=== PATIENT | female | born 1950 | race Caucasian/White ===

== ENCOUNTER 2020-01-10 13:19 | Outpatient (CLI) | payer MEDICARE, SELFPAY ==
--- NOTE | ~2020-01-10 | XR_ITS ---
EXAMINATION: XR hip RT min 2V DATE: 01/10/2020 15:01 INDICATION: Low back and right hip pain TECHNIQUE: Anteroposterior, frog leg, and cross-table lateral views of the right hip were obtained. COMPARISON: None. FINDINGS: Bone alignment is normal. There is no fracture. The soft tissues are unremarkable. IMPRESSION: 1. No acute osseous abnormality. Reviewed, dictated and finalized at location A.
--- NOTE | ~2020-01-10 | DEXA_ITS ---
Bone Density Report Name: Lady King Age: 69 Sex: Female Ethnicity: White Date of : 1950 Indication: postmenopausal; height loss; hysterectomy; Referring Provider: KORIN, HIRA Lindsay Study: Bone densitometry was performed. Exam Date: January 10, 2020 Accession number: [id number] Bone Density: Region BMD T-score Z-score Classification AP Spine (L1-L4) 0.938 -1.0 1.2 Normal Femoral Neck (Left) 0.658 -1.7 0.2 Osteopenia Total Hip (Left) 0.852 -0.7 0.8 Normal Total Hip Bilateral Avg 0.813 -1.0 0.5 Osteopenia Femoral Neck (Right) 0.659 -1.7 0.2 Osteopenia Total Hip (Right) 0.772 -1.4 0.2 Osteopenia World Health Organization criteria for BMD impression classify patients as: Normal (T-score at or above -1.0), Osteopenia (T-score between -1.0 and -2.5), or Osteoporosis (T-score at or below -2.5). 10-year Fracture Risk(1): Major Osteoporotic Fracture 9.9% Hip Fracture 1.7% Reported Risk Factors: [place] (), Neck BMD=0.659, BMI=37.8 (1) FRAX(R) Version 3.08. Fracture probability calculated for an untreated patient. Fracture probability may be lower if the patient has received treatment. Previous Exams: Region Exam Age BMD T-score BMD Change BMD Change Date g/cm2 vs Baseline vs Previous AP Spine(L1-L4) 01/10/2020 69 0.938 -1.0 -0.067(-6.7%)# -0.103(-9.9%)# 07/27/2007 57 1.041 -0.1 0.036(3.6%)* 0.036(3.6%)* 01/13/2003 52 1.005 -0.4 Total Hip(Left) 01/10/2020 69 0.852 -0.7 -0.107(-11.1%) -0.140(-14.1%) 07/27/2007 57 0.992 0.4 0.034(3.5%)* 0.034(3.5%)* 01/13/2003 52 0.959 0.1 Total Hip(Right) 01/10/2020 69 0.772 -1.4 -0.101(-11.5%) -0.129(-14.3%) 07/27/2007 57 0.901 -0.3 0.029(3.3%)* 0.029(3.3%)* 01/13/2003 52 0.873 -0.6 *Denotes significance at 95% confidence level, LSC for AP Spine = 0.022 g/cm2, LSC for Total Hip = 0.027 g/cm2 Clinical Information Provided by Patient: Has the following medical conditions: Hysterectomy Patient maximum height was 65.5 Menopause Age: 30 No regular weight bearing exercise Drinks caffeinated beverages Onset of menses at age 11 Number of children 2 Impression: The patient has low bone mass, based on the Left Femoral Neck T-score. The patient has an estimated ten-year risk of hip fracture of 1.7% and an estimated ten-year risk of major fracture of 9.9%, based on the WHO FRAX algorithm. No significant bone loss was observed. Hilton
--- NOTE | ~2020-01-10 | XR_ITS ---
EXAMINATION: XR lumbar spine 2-3V DATE: 01/10/2020 15:01 INDICATION: Low back pain TECHNIQUE: Anteroposterior and lateral views of the lumbar spine, and cone-down lateral view of the l umbosacral junction were obtained. COMPARISON: 05/30/2014 FINDINGS: Bone alignment is normal. There is no fracture. There is chronic severe loss of interverteb ral disc space height at L4-5 and L5-S1. Mild loss of intervertebral disc space height is present at L3-4. The vertebral body heights are normal. There is severe facet osteoarthritis of the lower lumbar spine. The bowel gas pattern is normal. Small degenerative osteophytes project from the anterior end plates of multiple vertebral bodies. IMPRESSION: 1. Severe lumbar spondylosis without acute findings or significant interval change. Reviewed, dictated and finalized at location A. IMPRESSION: 1. Severe lumbar spondylosis without acute findings or significant interval carola nge.
== END 2020-01-10 13:20 | disposition home or self-care (01) ==
PROVIDERS: PCP Internal Medicine; Visit Provider Internal Medicine
DX: Z13.820 Encounter for screening for osteoporosis (principal); Z78.0 Asymptomatic menopausal state; M47.896 Other spondylosis, lumbar region; M85.852 Other specified disorders of bone density and structure, left thigh; M85.851 Other specified disorders of bone density and structure, right thigh
CPT/HCPCS: 72100; 73502; 77080

== ENCOUNTER 2020-03-08 11:05 | Outpatient (CLI) | payer MEDICARE, SELFPAY ==
--- NOTE | ~2020-03-08 | XR_ITS ---
XR hip LT min 2V 03/08/2020 11:31 Indication: Low back and hip pain Procedure: 2 views left hip Comparison: No prior studies for comparison. Findings: No fracture, subluxation or dislocation. Sclerotic lesion noted in the intertrochanteric re gion, likely benign enchondroma. No significant joint space narrowing. No soft tissue abnormalities. Impression: 1: No significant bone or joint abnormality. Reviewed, dictated and finalized at location A. Impression: 1: No significant bone or joint abnormality.
--- NOTE | ~2020-03-08 | XR_ITS ---
XR lumbar spine 2-3V 03/08/2020 11:30 Indication: Low back pain. Procedure: 3 views lumbar spine Comparison: 01/10/2020 Findings: There is disc narrowing at all lumbar levels with vacuum phenomena at L3-4, L4-5 and L5-S1. There is mild levoscoliosis. No fracture or traumatic malalignment. No evidence for spondylolisthesi s. No significant change. There are cholecystectomy clips. Impression: 1: Stable moderate-severe lumbar spondylosis. Reviewed, dictated and finalized at location A. Impression: 1: Stable moderate-severe lumbar spondylosis.
== END 2020-03-08 11:06 | disposition home or self-care (01) ==
PROVIDERS: PCP Internal Medicine; Visit Provider Internal Medicine
DX: M47.896 Other spondylosis, lumbar region (principal)
CPT/HCPCS: 72100; 73502

== ENCOUNTER 2020-06-24 09:28 | Outpatient (CLI) | payer MEDICARE, SELFPAY ==
--- NOTE | ~2020-06-24 | US_ITS ---
EXAMINATION: US venous doppler [facility] DATE: 06/24/2020 10:22 INDICATION: Varicose veins TECHNIQUE: Grayscale ultrasound images without and with compression and Doppler ultrasound images of the bilateral lower extremity veins were obtained. COMPARISON: None. FINDINGS: The visualized portions of right common femoral vein, profunda (deep) femoral vein, femoral vein, pop liteal vein, posterior tibial veins, peroneal veins, gastrocnemius vein and greater saphenous vein ou tflow are patent. Right StandingSupine] Venous Mapping: reflux seconds duration; vein size. Greater saphenous origin: 0 seconds; 6.5 mm. Greater saphenous mid thigh:------ 0 seconds; 4.2-3.3 mm. Greater saphenous below knee:--- 0 seconds; 3.0-2.1 mm. Lesser saphenous proximally:------ 0 seconds; 1.7 mm. Lesser saphenous distally: 0 seconds; 1.8 mm. The visualized portions of left common femoral vein, profunda femoral vein, femoral vein, popliteal v ein, posterior tibial veins, peroneal veins, gastrocnemius vein and greater saphenous vein outflow ar e patent. Left StandingSupine] Venous Mapping: reflux seconds duration; vein size. Greater saphenous origin: 0 seconds; 9.9 mm. Greater saphenous mid thigh:------ 0 seconds; 4.7-3.2 mm. Greater saphenous below knee:--- 0 seconds; 2.3 mm. Lesser saphenous proximally:------ 0 seconds; 4.0-2.9 mm. Lesser saphenous distally: 0 seconds; 2.0-1.8 mm. IMPRESSION: 1. No deep venous thrombosis or venous reflux in either lower limb. Reviewed, dictated and finalized at location B.
== END 2020-06-24 09:29 | disposition home or self-care (01) ==
PROVIDERS: PCP Internal Medicine; Visit Provider Internal Medicine Cardiovascular Disease
DX: I83.90 Asymptomatic varicose veins of unspecified lower extremity (principal); R60.0 Localized edema
CPT/HCPCS: 93970

== ENCOUNTER 2020-07-08 14:01 | Outpatient (CLI) | payer MEDICARE, SELFPAY ==
--- NOTE | ~2020-07-08 | MR_ITS ---
EXAMINATION: MR lumbar spine wo con DATE: 07/08/2020 14:46 INDICATION: Lumbar radiculopathy. TECHNIQUE: Magnetic resonance imaging (MRI) of the lumbar spine was performed without intravenous con trast. Sequences included sagittal T2-weighted FSE, sagittal T2-weighted FS FSE, sagittal T1-weighted FSE, and axial T2-weighted FSE. COMPARISON: Lumbar spine radiographs 03/08/2020 FINDINGS: There is 16 degrees levoscoliosis of lumbar spine. There are Schmorl's nodes at most levels . There is severely decreased disc height at L1-L2, mildly decreased disc height at L2-L3, and severe ly decreased disc height from L3-L4 through L5-S1. The distal spinal cord signal intensity is normal. The conus medullaris is at L1. The following disc levels are specifically discussed: L1-L2: The disc is bulging and has an annular fissure. There is moderate bilateral facet joint osteoa rthritis. There is mild bilateral neural foraminal stenosis. There is mild central canal stenosis. L2-L3: The disc is bulging and has an annular fissure. There is mild bilateral facet joint osteoarthr itis. There is mild bilateral neural foraminal stenosis. There is mild central canal stenosis. L3-L4: The disc is bulging and has an annular fissure. There is moderate bilateral facet joint osteoa rthritis. There is mild bilateral neural foraminal stenosis. There is mild central canal stenosis. L4-L5: The disc is bulging as an annular fissure. There is severe bilateral facet joint osteoarthriti s. There is mild bilateral neural foraminal stenosis. There is mild central canal stenosis. L5-S1: The disc is bulging and has an annular fissure. There is moderate left facet joint osteoarthri tis. There is mild bilateral neural foraminal stenosis. There is mild central canal stenosis. IMPRESSION: 1. Severe lumbar spondylosis. 2. Lumbar levoscoliosis. Reviewed, dictated and finalized at location B. ERSITY TUTOR
== END 2020-07-08 14:02 | disposition home or self-care (01) ==
PROVIDERS: PCP Internal Medicine; Visit Provider Internal Medicine
DX: M47.26 Other spondylosis with radiculopathy, lumbar region (principal)
CPT/HCPCS: 72148

== ENCOUNTER 2020-09-05 04:45 | Outpatient (CLI) | payer MEDICARE, SELFPAY ==
[2020-09-05 19:32] LABS: SARS-CoV-2 RNA PCR Negative
== END 2020-09-05 04:46 | disposition home or self-care (01) ==
LOC: ANHCOVIDDT 04:45
PROVIDERS: PCP Internal Medicine; Visit Provider Internal Medicine Gastroenterology
DX: Z01.812 Encounter for preprocedural laboratory examination (principal); Z20.822 Contact with and (suspected) exposure to COVID-19
CPT/HCPCS: C9803; U0003

== ENCOUNTER 2020-09-09 02:46 | Day surgery (SDC) | payer MEDICARE, SELFPAY ==
[2020-09-02 10:01] VITALS: BMI 37.0
--- NOTE | 2020-09-02 10:16 | PC.NURSE ---
Doing PAT interview on 09-02-20 at 1015- patient informed me of being on Pradaxa for chronic Afib. Spoke with Dr Candelario- states to hold for 2 days prior to procedure day. Instructions given to patient.
[2020-09-09 08:32] VITALS: BP 124/76; PULSE 60; RESP 18; TEMP 36.1; O2SAT 99; BMI 36.0
[2020-09-09] MEDS: LACTATED RINGERS 1,000 ML 150 ML IV CONT (08:47)
--- NOTE | 2020-09-09 09:37 | WPDANESEPPF ---
Anes - Initial Pre Proc Eval Procedure: Operation Date: 09/09/20 09:30 Proposed Procedures p Screening Colonoscopy - Gerber Jacinto MD Date/Time: 09/09/20 09:37 Surgeon: Gerber Jacinto MD Pre Op Diagnosis: Neoplasm Screening Patient Data Age: 70 Gender: F Height: 5 ft 4 in Weight: 95.2 kg Last Vital Signs Temp 97 F L 09/09/20 08:32 Pulse 60 09/09/20 08:32 Resp 18 09/09/20 08:32 BP 124/76 09/09/20 08:32 Pulse Ox 99 09/09/20 08:32 Allergies Allergy/AdvReac Type Severity Reaction Status Date / Time No Known Allergies Allergy Verified 09/09/20 08:25 Home Medications Medication Instructions Recorded Confirmed Type dabigatran etexilate [Pradaxa] 150 mg PO BID 08/23/19 09/02/20 History ferrous sulfate 325 mg PO BID 08/23/19 09/02/20 History lansoprazole 30 mg PO DAILY 08/23/19 09/02/20 History levothyroxine 75 mcg PO DAILY 08/23/19 09/02/20 History pravastatin 10 mg PO DAILY 08/23/19 09/02/20 History sotalol 40 mg PO BID 08/23/19 09/02/20 History albuterol sulfate 90 mcg/actuation 2 puff INHALATION Q4-6H PRN #8.5 gm 09/25/19 09/02/20 Rx aerosol inhaler cholecalciferol (vitamin D3) 25 1,000 unit PO DAILY 09/25/19 09/02/20 History mcg (1,000 unit) capsule cyanocobalamin (vitamin B-12) 500 500 mcg PO DAILY 09/25/19 09/02/20 History mcg tablet multivitamin 1 tablet PO DAILY 09/25/19 09/02/20 History budesonide 180 mcg/actuation 2 inh INHALATION QAM #3 ea 08/12/20 09/02/20 Rx breath activated powder inhaler Patient hx anesthesia problems: none Family hx anesthesia problems: none PMFSH Past Medical History Medical History (Reviewed 08/12/20 @ 11:05 by Ann Marie Rousseau, [facility]) Afib Anemia Arthritis Diastolic congestive heart failure Diverticulitis GERD (gastroesophageal reflux disease) Heart murmur History of cardioversion Hypotension Hypothyroid Leaky heart valve Pulmonary HTN Seasonal allergies Second hand smoke exposure UTI (urinary tract infection) Surgical History Surgical History H/O bilateral cataract extraction H/O breast biopsy H/O resection of small bowel H/O: hysterectomy History of appendectomy History of cardiac cath History of cholecystectomy Hx of gastric bypass Hx of tonsillectomy Family History Family History (Reviewed 08/12/20 @ 11:05 by Ann Marie Rousseau, [facility]) Mother Family history of muscular dystrophy, Onset Age: 45 Family history of cardiovascular disease, Onset Age: 45 Family history of lung disease, Onset Age: 45 Father Acute myocardial infarction, Onset Age: 47 Sibling Family history of renal failure Other Family history of autism Social History Social History Smoking status: Never smoker Second hand tobacco smoke exposure: Yes Alcohol intake: never Substance use: never Substance use type: does not use Living arrangements: with family Spiritual care concerns: No Anes - Eval Final PreProcedure Day of Procedure 09/09/20 09:37 Patient weight: obese Heart: irregular rhythm Lungs: clear to auscultation Airway: Mallampati scale class II Neurological: alert and oriented Last oral intake: >/= 8 hours ASA classification: III Emergent: no Anesthetic plan: proceed Anesthesia type and monitoring: general GIVS and standard monitoring Informed Consent: The patient's anesthetic plan and its attendant risks and benefits were discussed with the patient/family/POA. Questions were solicited and answers provided to the satisfaction of the patient/family/POA.
--- NOTE | 2020-09-09 09:44 | PM.HPGS ---
History of Present Illness History of Present Illness Consent: Risks, benefits, and alternatives have been discussed and questions answered. Patient agrees to proceed with procedure. Chief complaint: Neoplasm Screening Narrative: Lady King is a 70 year old female with last colonoscopy 3 years ago but recently had + stool card Review of Systems Constitutional: Constitutional: Denies headache(s) and Denies weakness Eyes: Eyes: Denies blurry vision ENT: Reports Normal hearing present, Denies headache(s) and Denies neck pain Cardiovascular: Cardiovascular: Denies chest pain and Denies dyspnea Respiratory: Respiratory: Denies dyspnea Gastrointestinal: Gastrointestinal: Reports no additional gastrointestinal complaints Genitourinary: Genitourinary: Denies dysuria Musculoskeletal: Musculoskeletal: Denies neck pain Integumentary/Breasts: Skin/Breast: Denies dry skin Neurologic: Reports Normal hearing present, Denies headache(s) and Denies weakness Psychiatric: Psychiatric: Denies anxiety Endocrine: Endocrine: Denies change in body appearance Hematologic/Lymphatic: Hematologic/Lymphatic: Denies easy bleeding Allergic/Immunologic: Allergic/Immunologic: Denies urticaria PMFSH Past Medical History Medical History Afib Anemia Arthritis Diastolic congestive heart failure Diverticulitis GERD (gastroesophageal reflux disease) Heart murmur History of cardioversion Hypotension Hypothyroid Leaky heart valve Pulmonary HTN Seasonal allergies Second hand smoke exposure UTI (urinary tract infection) Surgical History Surgical History H/O bilateral cataract extraction H/O breast biopsy H/O resection of small bowel H/O: hysterectomy History of appendectomy History of cardiac cath History of cholecystectomy Hx of gastric bypass Hx of tonsillectomy Family History Family History Mother Family history of muscular dystrophy, Onset Age: 45 Family history of cardiovascular disease, Onset Age: 45 Family history of lung disease, Onset Age: 45 Father Acute myocardial infarction, Onset Age: 47 Sibling Family history of renal failure Other Family history of autism Social History Social History Smoking status: Never smoker Second hand tobacco smoke exposure: Yes Alcohol intake: never Substance use: never Substance use type: does not use Living arrangements: with family Spiritual care concerns: No Meds Home Medications and Allergies Home Medications Medication Instructions Recorded Confirmed Type dabigatran etexilate [Pradaxa] 150 mg PO BID 08/23/19 09/02/20 History ferrous sulfate 325 mg PO BID 08/23/19 09/02/20 History lansoprazole 30 mg PO DAILY 08/23/19 09/02/20 History levothyroxine 75 mcg PO DAILY 08/23/19 09/02/20 History pravastatin 10 mg PO DAILY 08/23/19 09/02/20 History sotalol 40 mg PO BID 08/23/19 09/02/20 History albuterol sulfate 90 mcg/actuation 2 puff INHALATION Q4-6H PRN #8.5 gm 09/25/19 09/02/20 Rx aerosol inhaler cholecalciferol (vitamin D3) 25 1,000 unit PO DAILY 09/25/19 09/02/20 History mcg (1,000 unit) capsule cyanocobalamin (vitamin B-12) 500 500 mcg PO DAILY 09/25/19 09/02/20 History mcg tablet multivitamin 1 tablet PO DAILY 09/25/19 09/02/20 History budesonide 180 mcg/actuation 2 inh INHALATION QAM #3 ea 08/12/20 09/02/20 Rx breath activated powder inhaler Allergies Allergy/AdvReac Type Severity Reaction Status Date / Time No Known Allergies Allergy Verified 09/09/20 08:25 Vital Signs Vital Signs - 24 hr 09/09/20 08:32 Temperature 97 F L Pulse Rate 60 Respiratory Rate 18 Blood Pressure 124/76 Pulse Oximetry 99 Exam Const: General: comfortable and no acute distress [facility]
[2020-09-09 10:07] VITALS: BP 99/48; PULSE 56; RESP 23; O2SAT 100
[2020-09-09 10:17] VITALS: BP 101/55; PULSE 53; RESP 17; O2SAT 100
[2020-09-09 10:27] VITALS: BP 104/66; PULSE 48; RESP 18; O2SAT 100
== END 2020-09-09 10:33 | disposition home or self-care (01) ==
PROVIDERS: PCP Internal Medicine; Visit Provider Internal Medicine Gastroenterology
PROC: 0DJD8ZZ Inspection of Lower Intestinal Tract, Via Natural or Artificial Opening Endoscopic (ICD-10-PCS; CPT 45378; principal; 2020-09-09 09:30)
DX: Z12.11 Encounter for screening for malignant neoplasm of colon (principal); R19.5 Other fecal abnormalities; K57.30 Diverticulosis of large intestine without perforation or abscess without bleeding; K64.8 Other hemorrhoids; Z86.010 Personal history of colon polyps; I48.91 Unspecified atrial fibrillation; I11.0 Hypertensive heart disease with heart failure; I50.30 Unspecified diastolic (congestive) heart failure; K21.9 Gastro-esophageal reflux disease without esophagitis; E03.9 Hypothyroidism, unspecified; D64.9 Anemia, unspecified; Z79.01 Long term (current) use of anticoagulants
CPT/HCPCS: G0105; C9803; J2001; J2704; J7120; U0003

== ENCOUNTER 2020-12-11 14:25 | Outpatient (CLI) | payer MEDICARE, SELFPAY ==
--- NOTE | 2020-12-11 15:11 | ECG_ITS ---
Measurements Intervals [place] Rate: 51 P: NE: 0 QRS: 61 QRSD: 116 T: 15 QT: 432 QTc: 399 Interpretive Statements ATRIAL FIBRILLATION WITH SLOW VENTRICULAR RESPONSE INCOMPLETE RIGHT BUNDLE BRANCH BLOCK LOW QRS VOLTAGE IN PRECORDIAL LEADS BORDERLINE ST-T WAVE ABNORMALITY- INF/LAT LEADS BASELINE ARTIFACT- II, III, AVF ABNORMAL ECG Electronically Signed On 12-11-2020 19:03:22 CDT by Bear Cordova D.O.
== END 2020-12-11 14:26 | disposition home or self-care (01) ==
PROVIDERS: PCP Internal Medicine; Visit Provider Internal Medicine Critical Care Medicine
DX: R06.02 Shortness of breath (principal); I45.10 Unspecified right bundle-branch block
CPT/HCPCS: 93005

== ENCOUNTER → 2020-12-22 01:08 | Outpatient (CLI) | payer MEDICARE, SELFPAY ==
[2020-12-22 20:47] LABS: SARS-CoV-2 RNA PCR Negative
== END ==
PROVIDERS: PCP Internal Medicine; Visit Provider Internal Medicine Gastroenterology
DX: Z01.812 Encounter for preprocedural laboratory examination (principal); Z20.822 Contact with and (suspected) exposure to COVID-19
CPT/HCPCS: C9803; U0003; U0005

== ENCOUNTER 2020-12-25 01:07 | Day surgery (SDC) | payer MEDICARE, SELFPAY ==
[2020-12-18 15:10] VITALS: BMI 37.8
[2020-12-25 06:57] VITALS: BP 126/54; PULSE 54; RESP 18; TEMP 35.7; O2SAT 99
[2020-12-25] MEDS: LACTATED RINGERS 1,000 ML 150 ML IV CONT (07:06)
--- NOTE | 2020-12-25 07:24 | WPDANESEPPF ---
Anes - Initial Pre Proc Eval Procedure: Operation Date: 12/25/20 08:00 Proposed Procedures p Esophagogastroduodenoscopy - Gerber Jacinto MD Date/Time: 12/25/20 07:24 Surgeon: Gerber Jacinto MD Pre Op Diagnosis: GI bleed Patient Data Age: 70 Gender: F Height: 5 ft 4 in Weight: 99.7 kg Last Vital Signs Temp 96.2 F L 12/25/20 06:57 Pulse 54 L 12/25/20 06:57 Resp 18 12/25/20 06:57 BP 126/54 L 12/25/20 06:57 Pulse Ox 99 12/25/20 06:57 Allergies Allergy/AdvReac Type Severity Reaction Status Date / Time No Known Allergies Allergy Verified 12/25/20 06:56 Home Medications Medication Instructions Recorded Confirmed Type ferrous sulfate 325 mg PO BID 08/23/19 12/18/20 History lansoprazole 30 mg PO DAILY 08/23/19 12/18/20 History levothyroxine 75 mcg PO DAILY 08/23/19 12/18/20 History pravastatin 10 mg PO DAILY 08/23/19 12/18/20 History cholecalciferol (vitamin D3) 25 1,000 unit PO DAILY 09/25/19 12/18/20 History mcg (1,000 unit) capsule cyanocobalamin (vitamin B-12) 500 500 mcg PO DAILY 09/25/19 12/18/20 History mcg tablet multivitamin 1 tablet PO DAILY 09/25/19 12/18/20 History montelukast 10 mg tablet 10 mg PO DAILY #90 tablet 10/06/20 12/18/20 Rx albuterol sulfate 90 mcg/actuation 2 puff INHALATION Q4-6H PRN #8.5 gm 11/17/20 12/18/20 Rx aerosol inhaler budesonide-formoterol HFA 160 2 puff INHALATION Q12H #10.2 g 11/17/20 12/18/20 Rx mcg-4.5 mcg/actuation aerosol inhaler dabigatran etexilate [Pradaxa] 150 mg PO POST-TRANSFUSION 12/18/20 12/18/20 History Patient hx anesthesia problems: none Family hx anesthesia problems: none PMFSH Past Medical History Medical History (Updated 12/17/20 @ 13:42 by Gerber Jacinto MD) Afib Anemia Arthritis Diastolic congestive heart failure Diverticulitis Epigastric pain GERD (gastroesophageal reflux disease) GIB (gastrointestinal bleeding) Heart murmur History of cardioversion Hypotension Hypothyroid Leaky heart valve Occult blood in stools Pulmonary HTN Seasonal allergies Second hand smoke exposure UTI (urinary tract infection) Surgical History Surgical History (Updated 12/17/20 @ 13:37 by Gerber Jacinto MD) H/O bilateral cataract extraction H/O breast biopsy H/O resection of small bowel H/O: hysterectomy History of appendectomy History of cardiac cath History of cholecystectomy Hx of gastric bypass Hx of tonsillectomy Family History Family History Mother Family history of muscular dystrophy, Onset Age: 45 Family history of cardiovascular disease, Onset Age: 45 Family history of lung disease, Onset Age: 45 Father Acute myocardial infarction, Onset Age: 47 Sibling Family history of renal failure Other Family history of autism Social History Social History Smoking status: Never smoker Second hand tobacco smoke exposure: Yes Alcohol intake: never Substance use: never Substance use type: does not use Living arrangements: with family Gender identity (if verbalized by the patient): Female Spiritual care concerns: No Anes - Eval Final PreProcedure Day of Procedure 12/25/20 07:24 Patient weight: overweight Heart: regular rate and rhythm Lungs: clear to auscultation Airway: Mallampati scale class II Neurological: alert and oriented Last oral intake: >/= 8 hours ASA classification: III Emergent: no Anesthetic plan: proceed Anesthesia type and monitoring: general GIVS and standard monitoring Informed Consent: The patient's anesthetic plan and its attendant risks and benefits were discussed with the patient/family/POA. Questions were solicited and answers provided to the satisfaction of the patient/family/POA.
--- NOTE | 2020-12-25 08:00 | WPDHPUPDATE1 ---
History and Physical Update Update Date/Time: 12/25/20 08:00 History and Physical has been reviewed, including an updated exam of the patient. There are NO changes in the patient's condition. Risks, benefits, and alternatives have been discussed and questions answered. Patient agrees to proceed with procedure.
[2020-12-25 08:15] VITALS: BP 110/60; PULSE 62; RESP 18; O2SAT 100
[2020-12-25 08:25] VITALS: BP 123/66; PULSE 55; RESP 18; O2SAT 100
[2020-12-25 08:35] VITALS: BP 122/82; PULSE 49; RESP 15; O2SAT 100
== END 2020-12-25 08:58 | disposition home or self-care (01) ==
PROVIDERS: PCP Internal Medicine; Visit Provider Internal Medicine Gastroenterology
PROC: 0DJ08ZZ Inspection of Upper Intestinal Tract, Via Natural or Artificial Opening Endoscopic (ICD-10-PCS; CPT 43235; principal; 2020-12-25 08:00)
DX: K92.2 Gastrointestinal hemorrhage, unspecified (principal); R10.13 Epigastric pain; K22.70 Barrett's esophagus without dysplasia; E03.9 Hypothyroidism, unspecified; I27.20 Pulmonary hypertension, unspecified; M19.90 Unspecified osteoarthritis, unspecified site; I95.9 Hypotension, unspecified; I48.91 Unspecified atrial fibrillation; R01.1 Cardiac murmur, unspecified; D64.9 Anemia, unspecified; I50.9 Heart failure, unspecified; Z79.01 Long term (current) use of anticoagulants
CPT/HCPCS: 43239; 88305; C9803; J2704; J7120; U0003; U0005

== ENCOUNTER 2021-01-06 10:57 | Outpatient (CLI) | payer MEDICARE, SELFPAY ==
--- NOTE | ~2021-01-06 | XR_ITS ---
XR small bowel follow through DATE: 01/06/2021 12:06 INDICATION: Gastrointestinal hemorrhage TECHNIQUE: Overhead and spot images of the small bowel following oral ingestion of barium contrast ma terial. COMPARISON: None FINDINGS: There is considerable shortening of the colon; no history of prior small bowel bypass surge ry in 1971 for weight loss. Contrast material reaches the colon within 15 minutes. There is no bowel obstruction. Normal small shireen wel mucosal fold thickening. There are multiple small bowel diverticula, measuring up to 4.5 cm approximate maximal dimension. The terminal ileum is normal. Surgical clips, right upper quadrant, consistent with cholecystectomy. IMPRESSION: Status post small bowel resection for weight loss Multiple small bowel diverticula No small bowel obstruction or mucosal fold thickening Reviewed, dictated and finalized at Location A. Reviewed, dictated and finalized at location A.
== END 2021-01-06 10:58 | disposition home or self-care (01) ==
PROVIDERS: PCP Internal Medicine; Visit Provider Internal Medicine Gastroenterology
DX: K92.2 Gastrointestinal hemorrhage, unspecified (principal); R10.13 Epigastric pain; Z90.49 Acquired absence of other specified parts of digestive tract
CPT/HCPCS: 74250

== ENCOUNTER 2021-07-05 10:10 | Outpatient (CLI) | payer MEDICARE, SELFPAY ==
--- NOTE | ~2021-07-05 | CT_ITS ---
EXAMINATION: CT abdomen pelvis w con INDICATION: Abnormal weight loss TECHNIQUE: Computed tomographic images of the abdomen and pelvis were obtained after the administrati on of 100 cc of Omnipaque 350 intravenous contrast. The dose-length product (DLP) was 694.77 mGy-cm. Automated exposure control and iterative reconstruction technique were employed. COMPARISON: MRI, 07/08/2020 FINDINGS: Minimal dependent atelectasis is present in the lung bases. The heart size is normal. There are small pleural effusions. The liver is diffusely low in attenuation when compared with the spleen , consistent with hepatic steatosis. The gallbladder is surgically absent. The spleen, pancreas, and right adrenal gland are normal. There is a 1.3 cm lesion of the left adrenal gland, stable since the MRI comparison and most consistent with an adenoma. Cysts of the kidneys measure up to 6 mm on the ri ght. No pathologically enlarged abdominal or pelvic lymph nodes are identified. There is no free intr aperitoneal gas or evidence of bowel obstruction. There are fluid-filled loops of nondistended bowel in the right lower quadrant. A small volume of pelvic ascites is noted. A sclerotic lesion of the lef t femoral neck likely represents an enchondroma. There is severe lumbar spondylosis. IMPRESSION: 1. No CT correlate for the patient's symptoms. Reviewed, dictated and finalized at location B. ESCENT PSYCHIATRIST
--- NOTE | ~2021-07-05 | XR_ITS ---
XR hip RT 2V w AP pelvis 07/05/2021 10:43 Indication: Chronic right hip pain Procedure: AP pelvis and 2 views right hip Comparison: 01/10/2020 Findings: Pelvic rings are intact. Moderate lower lumbar spondylosis. There is mild bilateral symmetr ic osteoarthritis of the hips. Sacral foramen are symmetric. No fracture or traumatic malalignment. T here is a sclerotic lesion in the proximal aspect of the left femur which was likely present on obstr uctive series dated 07/14/2005, likely benign. Impression: 1: Mild symmetric osteoarthritis of the hips. Reviewed, dictated and finalized at location A. EL CAP SETTER Impression: 1: Mild symmetric osteoarthritis of the hips.
[2021-07-05 10:49] LABS: Estimated Glomerular Filt Rate > 60
== END 2021-07-05 10:11 | disposition home or self-care (01) ==
PROVIDERS: PCP Internal Medicine; Visit Provider Internal Medicine
DX: R63.4 Abnormal weight loss (principal); M16.0 Bilateral primary osteoarthritis of hip
CPT/HCPCS: 73502; 74177; Q9967

== ENCOUNTER 2021-09-16 08:30 | Outpatient (CLI) | payer MEDICARE, SELFPAY ==
--- NOTE | ~2021-09-16 | MR_ITS ---
EXAMINATION: MR MRCP wo/w con/w 3D wo ind DATE: 09/16/2021 09:52 INDICATION: Abnormal weight loss TECHNIQUE: Magnetic resonance imaging (MRI) of the abdomen was performed without and with intravenous contrast. Sequences included coronal T2-weighted SS-FSE ARC, coronal T2-weighted FS SS-FSE, coronal T2-weighted 2D FS FIESTA, Water:Coronal LAVA-Flex, sagittal T2-weighted SS-FSE ARC, axial SSFSE ARC, axial 3D DualEcho, axial DWI B=600, axial T1-weighted LAVA, FAT:Coronal LAVA-Flex, and coronal in and opposed phase LAVA-Flex. Thick-slab T2-weighted FRFSE-XL images were obtained for magnetic resonance cholangiopancreatography (MRCP). Maximum intensity projection 3-D reconstructions of the volumetric data were created by the technologist. Postcontrast sequences included a time course of axial T1-weig hted LAVA, FAT:Coronal LAVA-Flex, coronal in and opposed phase LAVA-Flex, and Water:Coronal LAVA-Flex . COMPARISON: CT, 07/05/2021 CONTRAST: Multihance, 14 cc FINDINGS: ABDOMEN MRI: There are small pleural effusions, right greater than left. The heart size is normal. Th e gallbladder is surgically absent. The liver, spleen, pancreas, and right adrenal gland are normal. The previously described 13 mm left adrenal nodule is stable, consistent with an adenoma. Cysts of th e kidneys measure up to 6 mm on the right. There are no pathologically enlarged abdominal lymph nodes . There is a small volume of pelvic ascites. ABDOMEN MRCP: There is no intrahepatic or extrahepatic biliary dilatation. No stones or stricture are identified in the common bile duct. The pancreatic duct is normal in course and caliber. IMPRESSION: 1. No MRI correlate for the patient's symptoms. 2. Small pleural effusions. 3. Small volume of pelvic ascites. Reviewed, dictated and finalized at location F. TER LINER
[2021-09-16 09:04] LABS: Estimated Glomerular Filt Rate 54
== END 2021-09-16 08:31 | disposition home or self-care (01) ==
LOC: ANHIMG 08:37
PROVIDERS: PCP Internal Medicine; Visit Provider Internal Medicine Gastroenterology
DX: R63.4 Abnormal weight loss (principal); R10.11 Right upper quadrant pain; J90 Pleural effusion, not elsewhere classified; R18.8 Other ascites
CPT/HCPCS: 74183; 76376; A9577

== ENCOUNTER 2021-09-24 13:30 | Outpatient (CLI) | payer MEDICARE, SELFPAY ==
--- NOTE | ~2021-09-24 | XR_ITS ---
EXAMINATION: XR chest 2V 09/24/2021 13:57 INDICATION: Shortness of breath. Atrial fibrillation. PROCEDURE: PA and lateral views of the chest COMPARISON: 08/23/2019 FINDINGS: The lungs are clear. The cardiomediastinal silhouette is within normal limits. There are no pleural effusions. There is no pneumothorax suspected. IMPRESSION: 1: NO ACUTE CARDIOPULMONARY DISEASE. Reviewed, dictated and finalized at location B. ER MEAT
== END 2021-09-24 13:31 | disposition home or self-care (01) ==
LOC: ANHIMG 13:38
PROVIDERS: PCP Internal Medicine; Visit Provider Nurse Practitioner Family
DX: R06.02 Shortness of breath (principal)
CPT/HCPCS: 71046

== ENCOUNTER 2021-10-02 08:29 | Inpatient (IN) | payer MEDICARE, SELFPAY ==
[2021-10-02] VITALS (13 sets, daily range): BP systolic 86–117; BP diastolic 49–73; PULSE 62–94; RESP 14–20; TEMP 36.4–36.8; O2SAT 98–100; BMI 25.7
--- NOTE | ~2021-10-02 | US_ITS ---
EXAMINATION: US venous doppler UE EXAM DATE: 10/07/2021 10:34 INDICATION: Left upper extremity swelling. TECHNIQUE: Multiple grayscale, color flow, Doppler sonographic images of the left upper extremity vei ns obtained by technologist. Compression was performed where able. There is no prior study for cecilio anne. FINDINGS: Left-sided PICC line. Left upper extremity: Jugular vein: ------------> Normal. Subclavian vein: --------> Normal. Axillary vein:------------> Normal. Brachial vein:-----------> Normal. Basilic vein: ------------> Thrombosed around PICC line. Cephalic vein: ----------> Thrombosed. Radial vein: ------------> Normal. Ulnar vein: > Normal. IMPRESSION: 1. Left basilic, cephalic superficial venous thrombosis. 2. No deep venous thrombosis of the left upper extremity. Reviewed, dictated and finalized at location B. CE SERVICES REPRESENTATIVE
--- NOTE | ~2021-10-02 | CT_ITS ---
EXAMINATION:CT diagnostic chest wo con DATE: 10/04/2021 18:22 INDICATION: Cough. Abnormal chest radiograph. TECHNIQUE: Computed tomography (CT) of the chest was performed without intravenous contrast. Automate d exposure control and iterative reconstruction technique were employed. The dose-length product (DLP ) was 164.43 mGy-cm. COMPARISON: Chest CT 06/24/2017, chest single view 10/03/2021 FINDINGS: There are moderate-sized pleural effusions. There is dependent passive atelectasis bilatera lly. There is mild atelectasis in right middle lobe and lingula. Calcified pulmonary nodules and calc ified hilar and mediastinal lymph nodes are consistent with old granulomatous disease. There is left atrial enlargement of the heart. There is a small pericardial effusion. A left upper extremity periph erally inserted central venous catheter (PICC) is seen with tip at the junction of the left brachioce phalic vein and superior vena cava. Widespread body wall edema is noted. The visualized portions of t he upper abdomen demonstrate a small volume of ascites. There are changes of cholecystectomy. There i s edema of the intra-abdominal fat. There is severe thoracic spondylosis. IMPRESSION: 1. Anasarca including moderate-sized pleural effusions, small pericardial effusion, and small volume of ascites. Reviewed, dictated and finalized at location E. PING AND RECEIVING COORDINATOR IMPRESSION: 1. Anasarca including moderate-sized pleural effusions, small pericardial effus ion, and small volume of ascites.
--- NOTE | ~2021-10-02 | XR_ITS ---
XR chest 1V portable 10/03/2021 10:22 Indication: PICC line placement Procedure: AP portable chest Comparison: Comparison to multiple prior studies sequentially, with oldest reviewed study dated 06/28. Findings: Left subclavian PICC line tip in the SVC. Bibasilar airspace disease, consistent with pneum onia. No pleural effusion or pneumothorax. Heart size normal. Impression: 1: Bibasilar airspace disease, compatible with pneumonia. Reviewed, dictated and finalized at location A. LE DBA Impression: 1: Bibasilar airspace disease, compatible with pneumonia.
--- NOTE | ~2021-10-02 | NM_ITS ---
EXAMINATION: NM GI bleeding EXAM DATE: 10/04/2021 14:00 INDICATION: rust colored stools. TECHNIQUE: 26 mCi Tc 99m in vitro labeled red cells was administered intravenously. Scintigraphic im ages of the abdomen were obtained for one hour. FINDINGS: No pattern of abnormal activity is seen in the abdomen or pelvis to suggest gastrointestina l hemorrhage. IMPRESSION: 1. No evidence of active gastrointestinal hemorrhage. Reviewed, dictated and finalized at location B. ICAL MANAGER
[2021-10-02] MEDS: SODIUM CHLORIDE 0.9% IV 1,000 ML 125 ML IV CONT ×2 (09:19→22:19)
[2021-10-02 09:41] LABS: Basophils Percent Auto 0.5 % (0.2-1.2); Eosinophils Percent Auto 0.2 % (0-4.4); Hematocrit 27.9 % (37.0-47.0); Hemoglobin 9.2 g/dL (12.0-15.0); Immature Granulocyte Absolute 0.02 K/mm3 (0.00-0.031); Immature Granulocyte Percent A 0.2 % (0-0.5); Lymphocytes Absolute Auto 1.18 K/mm3 (0.9-3.2); Lymphocytes Percent Auto 14.3 % (18.3-44.2); Mean Corpuscular Hemoglobin 32.6 pg (26-34); Mean Corpuscular Volume 98.9 fl (80-100); Mean Platelet Volume 10.5 fl (7.4-10.4); Monocytes Absolute Auto 0.7 K/mm3 (0.1-0.6); Monocytes Percent Auto 8.5 % (2.6-8.5); Neutrophils Absolute Auto 6.3 K/mm3 (1.3-6.7); Neutrophils Percent Auto 76.3 % (45.5-73.1); Platelet Count Result 345 k/mm3 (150-375); Red Blood Count 2.82 M/mm3 (4.2-5.4); Red Cell Distribution Width 15.6 % (11.5-14.5); White Blood Count 8.3 K/mm3 (4.5-10.0)
[2021-10-02 09:46] LABS: Alanine Aminotransferase 33 U/L (4-35); Albumin Level 2.1 g/dL (3.5-5.1); Alkaline Phosphatase 45 U/L (38-126); Anion Gap 4 mmol/L (8-16); Aspartate Amino Transferase 30 U/L (14-36); Bilirubin,Total 0.6 mg/dL (0.2-1.3); Blood Urea Nitrogen 16 mg/dL (7-17); Calcium 7.5 mg/dL (8.4-10.2); Carbon Dioxide 19 mmol/L (22-30); Chloride 111 mmol/L (98-107); Estimated CRCL calculation 42 ml/min; Estimated Glomerular Filt Rate > 60; Glucose 96 mg/dL (65-110); Lipase 33 U/L (23-300); Magnesium 1.4 mg/dL (1.6-2.3); Potassium 3.5 mmol/L (3.4-5.0); Sodium 134 mmol/L (137-145)
[2021-10-02 09:51] LABS: INR 1.7; Prothrombin Time 19.8 Seconds (11.1-14.7)
[2021-10-02 09:52] LABS: Partial Thromboplastin Time 43.9 SECONDS (22.3-36.8)
--- NOTE | 2021-10-02 10:53 | ED.GIBLEED ---
HPI - GI Bleed General Chief complaint: GI Bleed Stated complaint: GI bleed Time Seen by Provider: 10/02/21 08:48 Source: patient History of Present Illness HPI Narrative: Patient presents with concern for GI bleed. Patient reports she has had symptoms for the past 1 to 2 weeks and has been having increased weakness. She recently presented to [facility] yesterday where they were concerned for GI bleed they were attempting to find admission facility with GI and patient was placed on multiple wait list. Patient signed out AMA and came to our ER for further evaluation. She denies any focal areas of pain such as chest pain or abdominal pain she denies any nausea or vomiting. Reports a history of GI bleed usually sees Dr. Candelario and has required blood transfusions in the past. Related Data Home Medications Medication Instructions Recorded Confirmed ferrous sulfate 325 mg PO BID 08/23/19 10/02/21 lansoprazole 30 mg PO DAILY 08/23/19 10/02/21 levothyroxine 75 mcg PO DAILY 08/23/19 10/02/21 pravastatin 10 mg PO DAILY 08/23/19 10/02/21 cholecalciferol (vitamin D3) 25 1,000 unit PO DAILY 09/25/19 10/02/21 mcg (1,000 unit) capsule cyanocobalamin (vitamin B-12) 500 500 mcg PO DAILY 09/25/19 10/02/21 mcg tablet multivitamin 1 tablet PO DAILY 09/25/19 10/02/21 dabigatran etexilate [Pradaxa] 150 mg PO POST-TRANSFUSION 12/18/20 10/02/21 Allergies Allergy/AdvReac Type Severity Reaction Status Date / Time No Known Allergies Allergy Verified 10/02/21 16:57 Review of Systems Review of Systems: CONSTITUTIONAL: Denies fever, chills, or sweats. EYES: Denies visual changes, redness, or discharge. ENT: Denies rhinorrhea, congestion, sore throat, or otalgia. CARDIOVASCULAR: Denies chest pain, palpitations, or edema. RESPIRATORY: Denies cough or dyspnea. GASTROINTESTINAL: Denies abdominal pain, nausea, vomiting, or diarrhea. GENITOURINARY: Denies dysuria or hematuria. SKIN: Denies rash or itching. MUSCULOSKELETAL: Denies back pain, joint pain, or myalgia. NEUROLOGIC: Denies headache, numbness, dizziness, or focal weakness. PSYCHIATRIC: Denies anxiety or depression. All systems reviewed & are unremarkable except as noted in HPI and below PMFSH Past Medical History Medical History (Updated 10/02/21 @ 11:43 by Adin Malhotra MD) Afib Anemia Arthritis Asthma Marques's esophagus with esophagitis COPD (chronic obstructive pulmonary disease) Diabetes mellitus Diastolic congestive heart failure Diverticulitis GERD (gastroesophageal reflux disease) GIB (gastrointestinal bleeding) HLD (hyperlipidemia) Hypothyroid Intestinal bypass present Pulmonary HTN Seasonal allergies UTI (urinary tract infection) Surgical History Surgical History (Updated 10/02/21 @ 11:12 by Marcelo Rodas DO) H/O bilateral cataract extraction H/O breast biopsy H/O resection of small bowel H/O: hysterectomy History of appendectomy History of cardiac cath History of cholecystectomy History of colonoscopy History of esophagogastroduodenoscopy (EGD) Hx of tonsillectomy Postsurgical intestinal bypass or anastomosis status Family History Family History Mother Family history of muscular dystrophy, Onset Age: 45 Family history of cardiovascular disease, Onset Age: 45 Family history of lung disease, Onset Age: 45 Father Acute myocardial infarction, Onset Age: 47 Sibling Family history of renal failure Other Family history of autism Social History Social History Smoking status: Never smoker Second hand tobacco smoke exposure: Yes Alcohol intake: never Substance use: never Substance use type: does not use Gender identity (if verbalized by the patient): Female Spiritual care concerns: No Exam Narrative: GENERAL: Well-appearing, well-nourished, and in no acute distress. HEAD: Normocephalic, atraum
--- NOTE | 2021-10-02 11:13 | WPDGICN ---
GI Consult Note Consult date/time: 10/02/21 11:13 HPI: Lady King is a 71 year old female At the request of the hospitalist. The patient was examined and chart reviewed. Reason for consultation GI bleeding. Impression: Recurrent lower GI bleeding. This is most likely diverticular in origin. This is exacerbated by underlying anticoagulation. Anemia secondary to above. Coagulopathy secondary to Pradaxa. GERD with a history of Marques's esophagus. Status post previous intestinal bypass. PMH: HLD, HTN, diabetes mellitus,atrial fibrillation, CHF, hypothyroidism, COPD, asthma, pulmonary hypertension Recommendation: Hold anticoagulation. SCDs. Will give 1 unit of fresh frozen plasma. The patient's INR slightly prolonged. Vitamin K. Serial hemoglobin and hematocrits. Continue PPI. If significant recurrent hemorrhage is noted would proceed with nuclear medicine tagged red blood cell Scan. History: This very pleasant lady with the above past medical history present to the ED at [facility]. She was noted to have significant melenic stools for the last week. She is chronically on Pradaxa. She continue to take her Pradaxa. After a stay at [facility] ED she signed out AMA and presented to the hospital at [facility]. The patient continues to have approximately 2-3 black stools for the last week. She denies any vomiting or hematemesis, however she does have nausea. She has occasional breakthrough heartburn on PPIs. NSAID use is denied. Patient has had previous GI bleeding in the past. Back in November of 2020 she underwent an EGD which revealed evidence of Marques's esophagus and mild gastritis. H pylori results were not able to be found. Patient had a colonoscopy revealing diverticulosis coli. Patient has previously had episodes of diarrhea. This was most likely exacerbated by her underlying intestinal bypass /SIBO in the past. Presently she is complaining only of melena. She complains of abdominal bloating but no significant pain or cramping. The patient always feels chilled. She has been feeling dizzy , lightheaded and weak. She complains of some mild shortness of breath and dyspnea. No cough or sputum production. She does have some lower extremity swelling. Numbness in the hands is reported. General: very pleasant patient in no acute distress. HEENT: Head was normocephalic sclerae is clear mouth without masses neck was supple. Heart: Irregular rate controlled rhythm Lungs: CTA. mild decrease right lung Base. Abdomen: Soft with no guarding or rigidity. Bowel sounds were active. Neurologic: Cranial nerves 2 through 12 intact. No focal defects. No clonus. Musculoskeletal system: Revealed no joint tenderness or swelling no muscle atrophy. Extremities: mild edema Skin: Warm and dry with normal turgor. Mental status: intact. Patient is alert and oriented. Thank you for allowing me to participate in the care of this patient. Review of Systems Review of Systems: All systems reviewed & are unremarkable except as noted in HPI and below PMFSH Past Medical History Medical History (Updated 10/02/21 @ 11:12 by Marcelo Rodas DO) Afib Anemia Arthritis Asthma Marques's esophagus with esophagitis COPD (chronic obstructive pulmonary disease) Diabetes mellitus Diastolic congestive heart failure Diverticulitis GERD (gastroesophageal reflux disease) GIB (gastrointestinal bleeding) HLD (hyperlipidemia) Hypothyroid Intestinal bypass present Pulmonary HTN Seasonal allergies UTI (urinary tract infection) Surgical History Surgical History (Updated 10/02/21 @ 11:12 by Marcelo Rodas DO) H/O bilateral cataract extraction H/O breast biopsy H/O resection of small bowel H/O: hysterectomy History of appendectomy History of cardiac cath History of cholecystectomy History of colonoscopy History of esophagogastroduodenoscopy (EGD) Hx of tonsillectomy Posts
[2021-10-02] MEDS: CALCIUM CHLORIDE 1,000 MG/10 ML SYRINGE 1000 MG IV PUSH (11:16)
[2021-10-02] MEDS: SODIUM CHLORIDE 0.9% IV 1,000 ML 999 ML IV CONT (11:17)
[2021-10-02] MEDS: PHYTONADIONE ADULT INJ 10 MG in DEXTROSE 5% IN WATER 50 ML 100 MG IVPB (11:17)
[2021-10-02 11:59] LABS: Alanine Aminotransferase 33 U/L (4-35); Albumin Level 2.1 g/dL (3.5-5.1); Alkaline Phosphatase 42 U/L (38-126); Anion Gap 5 mmol/L (8-16); Aspartate Amino Transferase 32 U/L (14-36); Bilirubin,Total 0.6 mg/dL (0.2-1.3); Blood Urea Nitrogen 15 mg/dL (7-17); Calcium 7.5 mg/dL (8.4-10.2); Carbon Dioxide 18 mmol/L (22-30); Chloride 111 mmol/L (98-107); Cholesterol 76 mg/dL (0-200); Estimated CRCL calculation 38 ml/min; Estimated Glomerular Filt Rate 54; Glucose 95 mg/dL (65-110); HDL Direct 43 mg/dL; Magnesium 1.4 mg/dL (1.6-2.3); Phosphorus 4.1 mg/dL (2.5-4.5); Potassium 3.5 mmol/L (3.4-5.0); Sodium 134 mmol/L (137-145); Triglycerides 55 mg/dL (<150)
[2021-10-02 12:08] LABS: LDL Cholesterol Direct 33 mg/dL
[2021-10-02] MEDS: SODIUM CHLORIDE 0.9% IV 250 ML 30 ML IV CONT ×2 (12:21→16:12)
[2021-10-02] MEDS: TUBING, BLOOD SET 1 EACH XX (13:08)
[2021-10-02 13:14] LABS: SARS-CoV-2 RNA PCR Negative
--- NOTE | 2021-10-02 14:00 | PM.IMHP ---
H&P: HPI History of Present Illness Date/Time: 10/02/21 14:00 Chief Complaint: Bloody stools. Narrative: This is a pleasant 71-year-old female with history of Marques's esophagitis, diverticulosis, GERD, small-bowel bypass for weight loss in the 1970s, paroxysmal atrial fibrillation on long-term anticoagulation, and several other comorbidities who presented to the ER for evaluation of bloody stools. She has been passing 2-3 dark stools a day over the past 1 week or so and more recently she has developed abdominal bloating, nausea, and lightheadedness. She went to [facility] yesterday for evaluation however left against medical advice as they were having difficulties finding a place to transfer her for GI evaluation. Today she once again had dark stools and came to this ER for evaluation. At this time she reports chills though she has not had a fever to her knowledge. She continues to have nausea but denies vomiting today. She has no significant abdominal discomfort. Of note, the patient mentions having lost 75 lb in the last 6 months unintentionally. She states she just has no appetite and her primary care provider has been doing an extensive workup which has thus far been unrevealing aside from evidence of malabsorption through a fecal fat study. Review of Systems Review of Systems: Twelve systems were reviewed. She has lost 75 lb in the last 6 months, unintentionally. More recently she has developed swelling of her lower legs and they feel like bricks. No history of venous thromboembolism.She has not had any recent cold or flu symptoms. No sick contacts. No chest pain or shortness of breath. No cough. Except as documented, all other systems were reviewed and are negative. [facility] Past Medical History Medical History (Updated 10/02/21 @ 23:17 by Sue Tyler PA-C) Anemia Arthritis Asthma Atrial fibrillation Marques's esophagus with esophagitis Chronic anticoagulation Chronic obstructive pulmonary disease Diabetes mellitus Diastolic congestive heart failure Gastroesophageal reflux disease GI bleed Hyperlipidemia Hypertension Hypothyroid Pulmonary HTN Seasonal allergies Surgical History Surgical History (Updated 10/02/21 @ 23:14 by Sue Tyler PA-C) History of appendectomy History of breast biopsy History of cardiac cath History of cataract extraction History of cholecystectomy History of colonoscopy History of esophagogastroduodenoscopy (EGD) History of hysterectomy History of resection of small bowel History of tonsillectomy Postsurgical intestinal bypass or anastomosis status Family History Family History Mother Family history of muscular dystrophy, Onset Age: 45 Family history of cardiovascular disease, Onset Age: 45 Family history of lung disease, Onset Age: 45 Father Acute myocardial infarction, Onset Age: 47 Sibling Family history of renal failure Other Family history of autism Social History Social History (Updated 10/02/21 @ 23:15 by Sue Tyler PA-C) Social History: Surrogate decision maker: Cristi King (spouse) or Lilly Carreonrebekah (daughter). Code status: Full code. Smoking status: Never smoker Second hand tobacco smoke exposure: Yes Alcohol intake: never Substance use: never Substance use type: does not use Additional living arrangements comments: The patient lives in [place] with her . Additional occupation/education comments: Retired. Meds Home Medications and Allergies Home Medications Medication Instructions Recorded Confirmed Type ferrous sulfate 325 mg PO BID 08/23/19 10/02/21 History lansoprazole 30 mg PO DAILY 08/23/19 10/02/21 History levothyroxine 75 mcg PO DAILY 08/23/19 10/02/21 History pravastatin 10 mg PO DAILY 08/23/19 10/02/21 History cholecalciferol (vitamin D3) 25 1,000 unit PO DAILY 09/25/19 10/02/21 History
--- NOTE | 2021-10-02 16:20 | ADMGEN ---
This patient, Lady King, was admitted to 2 Medical Room 240-01. Patient/family oriented to hospital policies and general routines including ID bracelet, bed and alarms, visiting hours, pain management, procedures, bathroom and other care routines, personal items, smoking policy, room service/diet, and visiting hours. Information on how to activate the Rapid Response Team has been discussed. Patient/Family are encouraged to report perceived risks to care and to ask questions if they do not understand what they are told or what they should do.
[2021-10-02 16:48] LABS: Glucose Point of Care 66 mg/dl (65-105)
[2021-10-02 16:48] LABS: Glucose Point of Care 67 mg/dl (65-105)
[2021-10-02 17:27] LABS: Hematocrit 25.3 % (37.0-47.0); Hemoglobin 8.1 g/dL (12.0-15.0)
[2021-10-02 17:33] LABS: Glucose Point of Care 101 mg/dl (65-105)
[2021-10-02] MEDS: PANTOPRAZOLE 40 MG TABLET PO (20:31)
[2021-10-02 22:46] LABS: Hematocrit 23.7 % (37.0-47.0); Hemoglobin 8.2 g/dL (12.0-15.0)
[2021-10-02] MEDS: MONTELUKAST SODIUM 10 MG TABLET BY MOUTH (23:58)
[2021-10-03] VITALS (10 sets, daily range): BP systolic 97–108; BP diastolic 61–93; PULSE 65–83; RESP 13–18; TEMP 36.6–37.2; O2SAT 96–100
[2021-10-03 00:44] LABS: Glucose Point of Care 83 mg/dl (65-105)
[2021-10-03] MEDS: LEVOTHYROXINE SODIUM 75 MCG TABLET PO (06:00)
[2021-10-03] MEDS: SODIUM CHLORIDE 0.9% IV 1,000 ML 125 ML IV CONT (06:00)
[2021-10-03 06:25] LABS: Glucose Point of Care 66 mg/dl (65-105)
[2021-10-03 06:25] LABS: Glucose Point of Care 69 mg/dl (65-105)
[2021-10-03 06:55] LABS: Glucose Point of Care 74 mg/dl (65-105)
[2021-10-03 08:10] LABS: Glucose Point of Care 66 mg/dl (65-105)
[2021-10-03 08:38] LABS: Glucose Point of Care 74 mg/dl (65-105)
[2021-10-03] MEDS: PANTOPRAZOLE 40 MG TABLET PO ×2 (08:48→21:15)
[2021-10-03] MEDS: PRAVASTATIN SODIUM 10 MG TABLET PO (08:48)
[2021-10-03] MEDS: LIPASE/AMYLASE/PROTEASE 12,000 UNITS CAP 1 CAP PO ×3 (08:48→17:26)
[2021-10-03] MEDS: FERROUS SULFATE 324 MG TABLET PO ×2 (08:48→17:26)
--- NOTE | 2021-10-03 09:05 | WPDGIPROGNO ---
Subjective Date/time seen: 10/03/21 09:05 The patient has had 2 episodes of rust colored stools. No significant abdominal pain. She reports nausea and dizziness. She has chest wall tenderness. No vomiting or hematemesis. General: very pleasant patient in no acute distress. HEENT: Head was normocephalic sclerae is clear mouth without masses neck was supple. Heart: Irregular rhythm. Lungs: CTA. Abdomen: Soft with no guarding or rigidity. Bowel sounds were active. Neurologic: Cranial nerves 2 through 12 intact. No focal defects. No clonus. Musculoskeletal system: Revealed no joint tenderness or swelling no muscle atrophy. Extremities: Reveal no significant edema. Skin: Warm and dry with normal turgor. Mental status: intact. Patient is alert and oriented. Impression: Recurrent lower GI bleeding. This is most likely diverticular in origin. This is exacerbated by underlying anticoagulation. Anemia secondary to above. Coagulopathy secondary to Pradaxa. GERD with a history of Marques's esophagus. Status post previous intestinal bypass. PMH: HLD, HTN, diabetes mellitus,atrial fibrillation, CHF, hypothyroidism, COPD, asthma, pulmonary hypertension Recommendation: Will check nuclear medicine bleeding scan. A.m. laboratory pending. Continue to follow hemoglobin hematocrit. Pradaxa on hold. SCDs. Clear liquids. If continues to bleed may consider flexible sigmoidoscopy/colonoscopy. However, since the patient recently had a colonoscopy will be little bit more conservative. We will check stool studies. Review of Systems Review of Systems: All systems reviewed & are unremarkable except as noted in HPI and below Objective Data Vital Signs Vital Signs: Vital Signs - 24 hr 10/02/21 10:20 10/02/21 12:07 10/02/21 12:23 Temperature 36.5 C 36.6 C Pulse Rate 71 72 73 Respiratory Rate 16 20 19 Blood Pressure 93/70 L 99/65 L 101/68 Pulse Oximetry 100 100 100 10/02/21 13:07 10/02/21 13:23 10/02/21 13:56 Temperature 36.8 C 36.8 C Pulse Rate 72 75 74 Respiratory Rate 16 16 18 Blood Pressure 108/63 103/60 117/73 Pulse Oximetry 100 100 100 10/02/21 13:57 10/02/21 15:09 10/02/21 16:00 Temperature Pulse Rate 74 80 71 Respiratory Rate 18 16 Blood Pressure 117/73 96/64 L Pulse Oximetry 100 100 10/02/21 16:20 10/02/21 19:22 10/02/21 20:00 Temperature 36.6 C 36.6 C Pulse Rate 62 69 70 Respiratory Rate 14 16 Blood Pressure 112/62 99/59 L Pulse Oximetry 98 100 10/03/21 00:00 10/03/21 03:22 10/03/21 04:00 Temperature 37.1 C Pulse Rate 83 78 74 Respiratory Rate 16 Blood Pressure 97/93 L Pulse Oximetry 99 10/03/21 08:57 Temperature Pulse Rate 65 Respiratory Rate Blood Pressure 100/68 Pulse Oximetry 96 Intake/Output Intake/Output: Intake & Output 09/30/21 10/01/21 10/02/21 10/03/21 23:59 23:59 23:59 23:59 Intake Total 1731 1460 Output Total 600 Balance 1731 860 Meds/Results Medications: Active Medications Generic Name Dose Route Start Last Admin Trade Name Freq PRN Reason Stop Dose Admin Albuterol 2 puff 10/02/21 23:23 Albuterol Sulfate (*Sp) Aerosol 1 Puff INHALATION Q4-6H PRN shortness of breath or wheezing Lipase/Protease/Amylase 1 cap 10/03/21 09:00 10/03/21 08:48 Lipase/Amylase/Protease 12,000 Units Cap PO 1 cap TID MARSHALL Administration Dextrose 12.5 gm 10/02/21 16:50 Dextrose 50% 25 Gm/50 Ml Syringe IV PUSH PRN PRN Hypoglycemia Protocol Ferrous Sulfate 324 mg 10/03/21 09:00 10/03/21 08:48 Ferrous Sulfate 324 Mg Tablet PO 324 mg BID MARSHALL Administration Glucagon 1 mg 10/02/21 16:50 Glucagon For Inj 1 Mg Vial IM PRN PRN Hypoglycemia Protocol Glucose 15 gm 10/02/21 16:50 Glucose Oral Gel 15 Gm Of Glucse In 37.5 Gm Tube PO PRN PRN Hypoglycemia Protocol Acetaminophen 1,000 mg in 100 mls @ 400 mls/hr 10/02/21 11:46 Ofirmev
[2021-10-03 11:28] LABS: INR 1.3; Prothrombin Time 16.2 Seconds (11.1-14.7)
[2021-10-03 11:32] LABS: Glucose Point of Care 91 mg/dl (65-105)
[2021-10-03] MEDS: FLUTICASONE/SALMETEROL 115-21 MCG INHALER 1 PUFF 2 PUFF INHALATION ×2 (11:32→20:00)
[2021-10-03 11:33] LABS: Basophils Percent Auto 0.3 % (0.2-1.2); Eosinophils Percent Auto 0.3 % (0-4.4); Hematocrit 23.3 % (37.0-47.0); Hemoglobin 7.6 g/dL (12.0-15.0); Immature Granulocyte Absolute 0.02 K/mm3 (0.00-0.031); Immature Granulocyte Percent A 0.3 % (0-0.5); Lymphocytes Absolute Auto 0.91 K/mm3 (0.9-3.2); Lymphocytes Percent Auto 13.7 % (18.3-44.2); Mean Corpuscular HGB Conc 32.6 g/dl (32-36); Mean Corpuscular Hemoglobin 32.3 pg (26-34); Mean Corpuscular Volume 99.1 fl (80-100); Mean Platelet Volume 10.5 fl (7.4-10.4); Monocytes Absolute Auto 0.5 K/mm3 (0.1-0.6); Monocytes Percent Auto 7.5 % (2.6-8.5); Neutrophils Absolute Auto 5.2 K/mm3 (1.3-6.7); Neutrophils Percent Auto 77.9 % (45.5-73.1); Platelet Count Result 276 k/mm3 (150-375); Red Blood Count 2.35 M/mm3 (4.2-5.4); Red Cell Distribution Width 15.8 % (11.5-14.5); White Blood Count 6.6 K/mm3 (4.5-10.0)
[2021-10-03] MEDS: UMECLIDINIUM BROMIDE 62.5 MCG ELLIPTA 1 PUFF INHALATION (11:33)
[2021-10-03 11:36] LABS: Alanine Aminotransferase 28 U/L (4-35); Alkaline Phosphatase 45 U/L (38-126); Anion Gap 3 mmol/L (8-16); Aspartate Amino Transferase 28 U/L (14-36); Bilirubin,Total 0.5 mg/dL (0.2-1.3); Blood Urea Nitrogen 13 mg/dL (7-17); Calcium 7.4 mg/dL (8.4-10.2); Carbon Dioxide 18 mmol/L (22-30); Chloride 113 mmol/L (98-107); Estimated CRCL calculation 51 ml/min; Estimated Glomerular Filt Rate > 60; Glucose 88 mg/dL (65-110); Magnesium 1.4 mg/dL (1.6-2.3); Potassium 3.4 mmol/L (3.4-5.0); Sodium 134 mmol/L (137-145)
--- NOTE | 2021-10-03 13:03 | PC.NURSE ---
Notified Dr. Saba that labs were able to be obtained after PICC placed. HGB 7.6, and made aware of BS 66 this Am, 74 after juice per pt request. Dr. Saba reports NNO no need for transfusion at this time.
[2021-10-03] MEDS: CENTRAL LINE FLUSH 10 ML IV PUSH ×2 (13:13→21:15)
[2021-10-03 13:40] LABS: Free T4 Free Thyroxine Reflex 1.38 ng/dL (0.78-2.19)
--- NOTE | 2021-10-03 14:07 | PM.IMPN ---
Progress Note: A&P Assessment and Plan (1) GI bleed: Code(s): K92.2 - Gastrointestinal hemorrhage, unspecified Status: Acute Assessment and Plan: with dark blood and stool with a past week Recurrent history of GI bleed in the past GI has been consulted. Plan for bleeding scan. colonoscopy done in November 2020 per patient (2) Acute blood loss anemia: Code(s): D62 - Acute posthemorrhagic anemia Status: Acute Assessment and Plan: Hemoglobin and hematocrit will be trended and she will be transfused if indicated. 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 (4) Weight loss: Code(s): R63.4 - Abnormal weight loss Status: Acute Assessment and Plan: Patient reports an unintentional 75 lb weight loss in last [address] Astudillo has been working her up as an outpatient. (5) Atrial fibrillation: Code(s): I48.91 - Unspecified atrial fibrillation Status: Acute Assessment and Plan: Rate controlled. (6) Diabetes mellitus: Code(s): E11.9 - Type 2 diabetes mellitus without complications Status: Inactive Assessment and Plan: Not currently on medication after weight loss. (7) Hypertension: Code(s): I10 - Essential (primary) hypertension Status: Acute Assessment and Plan: Blood pressures have been running soft thus antihypertensives will be held. 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 She has been passing 2-3 dark stools a day over the past 1 week or so and more recently she has developed abdominal bloating, nausea, and lightheadedness. She went to [facility] yesterday for evaluation however left against medical advice as they were having difficulties finding a place to transfer her for GI evaluation. Today she once again had dark stools and came to this ER for evaluation. At this time she reports chills though she has not had a fever to her knowledge. She continues to have nausea but denies vomiting today. She has no significant abdominal discomfort. Of note, the patient mentions having lost 75 lb in the last 6 months unintentionally. She states she just has no appetite and her primary care provider has been doing an extensive workup which has thus far been unrevealing aside from evidence of malabsorption through a fecal fat study. 10/03/2021 continues to have some bloody bowel movement. H&H has not been able to be collected due to inability to draw blood. Because of this PICC line has been placed for blood draws. He reports abdomen is slightly sore. Ongoing issues with bleeding. Pradaxa is on hold. No shortness of breath or chest pain Review of Systems Review of Systems: All systems reviewed & are unremarkable except as noted in HPI and below (HPI) Exam Narrative: General: frail looking female supine in bed. not in acute distress HEENT: PERRL, EOMI. Sclerae anicteric. Tacky mucous membranes. Oropharynx clear. Neck: Supple. No JVD. Respiratory: Lungs are clear to auscultation bilaterally. Cardiovascular: Regular rate and rhythm with S1-S2. Soft murmur at the left upper sternal border. Gastrointestinal: Abdomen is soft, nontender, and nondistended with positiv
[2021-10-03 14:31] LABS: Total Triiodothyronine (T3) 0.54 NG/ML (0.97-1.69)
[2021-10-03] MEDS: MAGNESIUM SULF 2 GM/WATER 50ML 2 GM/50 ML BAG IVPB (15:09)
[2021-10-03 16:14] LABS: Hematocrit 22.1 % (37.0-47.0); Hemoglobin 7.4 g/dL (12.0-15.0)
[2021-10-03 16:36] LABS: Glucose Point of Care 85 mg/dl (65-105)
[2021-10-03] MEDS: MONTELUKAST SODIUM 10 MG TABLET BY MOUTH (17:26)
[2021-10-04] VITALS (10 sets, daily range): BP systolic 97–113; BP diastolic 48–66; PULSE 76–107; RESP 16–18; TEMP 36.1–36.6; O2SAT 92–100; BMI 31.4
--- NOTE | 2021-10-04 | ECHO_ITS ---
Patient Info Name: Lady King Age: 71 years : 1950 Gender: Female Ht: 64 in Wt: 182 lbs BSA: 1.96 m2 HR: 83 bpm BP: 99 / 61 mmHg Heart Rhythm: Atrial Fibrillation Technical Quality: Fair Exam Date: 10/04/2021 4:59 PM Exam Location: [facility] Patient Status: Outpatient Admit Date: 10/02/2021 Staff Ordering Physician: Moises Saba MD Deck Lid Fitter: Ananya Mock RDCS Attending Provider: Óscar Mobley MD Exam Type: CA echo doppler color flow Study Info Indications - chf Complete two-dimensional, color flow and Doppler transthoracic echocardiogram is performed. Summary 1. Normal LV size and wall thickness, normal global LV systolic function, ejection fraction calculated at 65%. Indeterminate diastolic function. Normal mitral valve structure, no significant MR. All 3 leaflets of aortic valve not well visualized, no significant focal stenosis by Doppler. Trace TR, RVSP 37 mmHg. Left Ventricle Left ventricular chamber dimension is normal. Left ventricular systolic function is normal, estimated at 60-65%. There is no increased left ventricular wall thickness. The left ventricular diastolic function is indeterminate. Right Ventricle Right ventricular chamber dimension is normal. Right ventricular systolic function is normal. Left Atria Left atrial chamber dimension is normal. Right Atria Right atrial chamber dimension is normal. Aortic Valve The aortic valve is normal. There is no aortic valve stenosis. Pulmonic Valve The pulmonic valve is normal. Mitral Valve The mitral valve has normal leaflets. There is no mitral valve regurgitation. Tricuspid Valve The tricuspid valve leaflets are normal. There is trace tricuspid valve regurgitation. Mild pulmonary hypertension, estimated pulmonary arterial systolic pressure is 37 mmHg. Inferior Vena Cava Normal inferior vena cava with >50% collapse upon inspiration consistent with normal right atrial pressure, 10 mmHg. Aorta The aortic root size at the sinus of Valsalva is normal. Left Ventricular Outflow Tract Name Value Normal LVOT 2D LVOT Diameter 2.0 cm LVOT Doppler LVOT Peak Gradient 4 mmHg LVOT Mean Gradient 2 mmHg LVOT VTI 21 cm LVOT VTI/AV VTI Ratio 0.8 LVOT Stroke Volume 66 ml LVOT CO 4.2 l/min LVOT CI 2.1 l/min/m2 Pulmonic Valve Name Value Normal RVOT Doppler RVOT Peak Gradient 2 mmHg PV Doppler PV Peak Gradient 7 mmHg Mitral Valve Name
[2021-10-04 00:06] LABS: Glucose Point of Care 80 mg/dl (65-105)
[2021-10-04] MEDS: CENTRAL LINE FLUSH 10 ML IV PUSH ×3 (05:28→21:15)
[2021-10-04] MEDS: LEVOTHYROXINE SODIUM 75 MCG TABLET PO (05:31)
[2021-10-04 05:58] LABS: Basophils Percent Auto 0.5 % (0.2-1.2); Eosinophils Absolute Auto 0.1 K/mm3 (0-0.3); Eosinophils Percent Auto 0.9 % (0-4.4); Hematocrit 24.5 % (37.0-47.0); Hemoglobin 8.2 g/dL (12.0-15.0); Immature Granulocyte Absolute 0.02 K/mm3 (0.00-0.031); Immature Granulocyte Percent A 0.3 % (0-0.5); Lymphocytes Absolute Auto 1.73 K/mm3 (0.9-3.2); Lymphocytes Percent Auto 22.7 % (18.3-44.2); Mean Corpuscular HGB Conc 33.5 g/dl (32-36); Mean Corpuscular Hemoglobin 32.2 pg (26-34); Mean Corpuscular Volume 96.1 fl (80-100); Mean Platelet Volume 10.2 fl (7.4-10.4); Monocytes Absolute Auto 0.7 K/mm3 (0.1-0.6); Monocytes Percent Auto 9.6 % (2.6-8.5); Platelet Count Result 289 k/mm3 (150-375); Red Blood Count 2.55 M/mm3 (4.2-5.4); Red Cell Distribution Width 15.9 % (11.5-14.5); White Blood Count 7.6 K/mm3 (4.5-10.0)
[2021-10-04 06:10] LABS: Alanine Aminotransferase 28 U/L (4-35); Alkaline Phosphatase 50 U/L (38-126); Anion Gap 3 mmol/L (8-16); Aspartate Amino Transferase 27 U/L (14-36); Bilirubin,Total 0.6 mg/dL (0.2-1.3); Blood Urea Nitrogen 10 mg/dL (7-17); Calcium 7.5 mg/dL (8.4-10.2); Carbon Dioxide 19 mmol/L (22-30); Chloride 113 mmol/L (98-107); Estimated CRCL calculation 51 ml/min; Estimated Glomerular Filt Rate > 60; Glucose 77 mg/dL (65-110); Magnesium 1.7 mg/dL (1.6-2.3); Potassium 3.1 mmol/L (3.4-5.0); Sodium 135 mmol/L (137-145)
[2021-10-04 06:35] LABS: Glucose Point of Care 64 mg/dl (65-105)
[2021-10-04 06:36] LABS: Glucose Point of Care 86 mg/dl (65-105)
[2021-10-04] MEDS: UMECLIDINIUM BROMIDE 62.5 MCG ELLIPTA 1 PUFF INHALATION (08:29)
[2021-10-04] MEDS: FLUTICASONE/SALMETEROL 115-21 MCG INHALER 1 PUFF 2 PUFF INHALATION ×2 (08:29→20:59)
[2021-10-04 08:39] LABS: Glucose Point of Care 75 mg/dl (65-105)
[2021-10-04] MEDS: PANTOPRAZOLE 40 MG TABLET PO ×2 (09:16→21:15)
[2021-10-04] MEDS: FERROUS SULFATE 324 MG TABLET PO ×2 (09:16→17:47)
[2021-10-04] MEDS: LIPASE/AMYLASE/PROTEASE 12,000 UNITS CAP 1 CAP PO ×2 (09:16→17:47)
[2021-10-04] MEDS: POTASSIUM CHLORIDE 20 MEQ PACKET (FOR LIQUID) 40 MEQ PO (09:16)
[2021-10-04] MEDS: PRAVASTATIN SODIUM 10 MG TABLET PO (09:17)
--- NOTE | 2021-10-04 10:19 | PCCCNOTE ---
On 10/04/21, the student, [Hollie Vela ], provided care and [facility]. I have reviewed the student's documentation and agree with the findings.
[2021-10-04] MEDS: ONDANSETRON INJ 4 MG/2 ML VIAL IV PUSH (11:12)
[2021-10-04 12:07] LABS: Glucose Point of Care 102 mg/dl (65-105)
--- NOTE | 2021-10-04 15:47 | PM.IMPN ---
Progress Note: A&P Assessment and Plan (1) GI bleed: Code(s): K92.2 - Gastrointestinal hemorrhage, unspecified Status: Acute Assessment and Plan: with dark blood and stool with a past week Recurrent history of GI bleed in the past GI has been consulted. Status post bleeding scan which came back 10/04/2021 colonoscopy done in November 2020 per patient [address] with Dr. Candelario and will plan for EGD colonoscopy in the morning (2) Acute blood loss anemia: Code(s): D62 - Acute posthemorrhagic anemia Status: Acute Assessment and Plan: Hemoglobin and hematocrit will be trended and she will be transfused if indicated. 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 (4) Weight loss: Code(s): R63.4 - Abnormal weight loss Status: Acute Assessment and Plan: Patient reports an unintentional 75 lb weight loss in last 6 months or so. GI has been working her up as an outpatient. She is also supposed to follow-up with Hematology-Oncology Elevated CA 19 9 level MRI abdomen 09/18 was negative Some cough present which is dry, chest x-ray with some possible pneumonia she is a nonsmoker. Further evaluate with CT chest She also has worsening pitting edema lower extremities will get echocardiogram to further evaluate Check urine for protein for any ongoing proteinuria as she also has hypoalbuminemia Protein electrophoresis And delete that (5) Atrial fibrillation: Code(s): I48.91 - Unspecified atrial fibrillation Status: Acute Assessment and Plan: Rate controlled. (6) Diabetes mellitus: Code(s): E11.9 - Type 2 diabetes mellitus without complications Status: Inactive Assessment and Plan: Not currently on medication after weight loss. Hypoglycemic lately not hyperkalemic rather hypokalemic Will rule out adrenal insufficiency with checking cortisol level at 8:00 a.m. tomorrow however since hypokalemic less likely Likely relates to poor p.o. intake and low protein diet Discussed increased protein diet with the patient today Albumin level is noted to be low at 2 as well (7) Hypertension: Code(s): I10 - Essential (primary) hypertension Status: Acute Assessment and Plan: Blood pressures have been running soft thus antihypertensives will be held. 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 She sees Dr Burnham for her heart COPD Hypothyroidism pulmonary hypertension Hypokalemia hypomagnesemia replace Subjective Date/time seen: 10/04/21 15:47 Interval history: HPI:This is a pleasant 71-year-old female with history of Marques's esophagitis, diverticulosis, GERD, small-bowel bypass for weight loss in the 1970s, paroxysmal atrial fibrillation on long-term anticoagulation, and several other comorbidities who presented to the ER for evaluation of bloody stools. She has been passing 2-3 dark stools a day over the past 1 week or so and more recently she has developed abdominal bloating, nausea, and lightheadedness. She went to [facility] yesterday for evaluation however left against medical advice as they were having difficulties finding a place to transfer her for GI evaluation. Today she once again had dark stools and came to this ER for evaluation. At this time she reports chills though she has not had a fever to her knowledge. She continues to have nausea but denies vomiting today. She has no significant abdominal discomfort. Of note, the patient mentions having lost 75 lb in the last 6 months unintentionally. She states she just has no appetite and her prima
[2021-10-04 16:27] LABS: Glucose Point of Care 93 mg/dl (65-105)
[2021-10-04] MEDS: MONTELUKAST SODIUM 10 MG TABLET BY MOUTH (17:47)
[2021-10-04] MEDS: PEG (High)/E-LYTE SOLN 4,000 ML BTL 4000 ML PO (17:50)
[2021-10-04] MEDS: BISACODYL 5 MG TABLET EC 20 MG PO (17:51)
[2021-10-04] MEDS: ACETAMINOPHEN 325 MG TABLET 650 MG PO (22:40)
[2021-10-05] VITALS (16 sets, daily range): BP systolic 66–108; BP diastolic 45–69; PULSE 72–107; RESP 16–26; TEMP 35.9–36.6; O2SAT 92–100
[2021-10-05 00:28] LABS: Glucose Point of Care 107 mg/dl (65-105)
[2021-10-05] MEDS: LEVOTHYROXINE SODIUM 75 MCG TABLET PO (05:47)
[2021-10-05] MEDS: CENTRAL LINE FLUSH 10 ML IV PUSH ×3 (05:52→20:12)
[2021-10-05 05:55] LABS: Glucose Point of Care 84 mg/dl (65-105)
[2021-10-05 07:56] LABS: Glucose Point of Care 82 mg/dl (65-105)
[2021-10-05] MEDS: UMECLIDINIUM BROMIDE 62.5 MCG ELLIPTA 1 PUFF INHALATION (09:03)
[2021-10-05] MEDS: FLUTICASONE/SALMETEROL 115-21 MCG INHALER 1 PUFF 2 PUFF INHALATION ×2 (09:03→21:32)
[2021-10-05 09:15] LABS: Basophils Percent Auto 0.4 % (0.2-1.2); Eosinophils Percent Auto 0.4 % (0-4.4); Hematocrit 22.8 % (37.0-47.0); Hemoglobin 7.6 g/dL (12.0-15.0); Immature Granulocyte Absolute 0.02 K/mm3 (0.00-0.031); Immature Granulocyte Percent A 0.3 % (0-0.5); Lymphocytes Absolute Auto 1.13 K/mm3 (0.9-3.2); Lymphocytes Percent Auto 14.4 % (18.3-44.2); Mean Corpuscular HGB Conc 33.3 g/dl (32-36); Mean Corpuscular Hemoglobin 32.8 pg (26-34); Mean Corpuscular Volume 98.3 fl (80-100); Mean Platelet Volume 10.4 fl (7.4-10.4); Monocytes Absolute Auto 0.7 K/mm3 (0.1-0.6); Neutrophils Absolute Auto 5.9 K/mm3 (1.3-6.7); Neutrophils Percent Auto 75.5 % (45.5-73.1); Platelet Count Result 218 k/mm3 (150-375); Red Blood Count 2.32 M/mm3 (4.2-5.4); Red Cell Distribution Width 15.8 % (11.5-14.5); White Blood Count 7.9 K/mm3 (4.5-10.0)
[2021-10-05 09:20] LABS: Alanine Aminotransferase 27 U/L (4-35); Albumin Level 1.8 g/dL (3.5-5.1); Alkaline Phosphatase 47 U/L (38-126); Anion Gap 1 mmol/L (8-16); Aspartate Amino Transferase 24 U/L (14-36); Bilirubin,Total 0.4 mg/dL (0.2-1.3); Blood Urea Nitrogen 8 mg/dL (7-17); Calcium 7.3 mg/dL (8.4-10.2); Carbon Dioxide 18 mmol/L (22-30); Chloride 112 mmol/L (98-107); Estimated CRCL calculation 50 ml/min; Estimated Glomerular Filt Rate > 60; Glucose 78 mg/dL (65-110); Magnesium 1.7 mg/dL (1.6-2.3); Potassium 3.5 mmol/L (3.4-5.0); Sodium 131 mmol/L (137-145)
[2021-10-05 09:26] LABS: Lactate Dehydrogenase 505 U/L (313-618)
[2021-10-05 09:35] LABS: Cortisol Baseline 8.69 ug/dL
[2021-10-05] MEDS: LACTATED RINGERS 1,000 ML 150 ML IV CONT (10:00)
--- NOTE | 2021-10-05 10:11 | WPDANESEPPF ---
Anes - Initial Pre Proc Eval Procedure: Operation Date: 10/05/21 14:45 Proposed Procedures p Esophagogastroduodenoscopy & Colonoscopy - Gerber Jacinto MD Date/Time: 10/05/21 10:11 Surgeon: Colleen Peralta MD Pre Op Diagnosis: gi bleed Patient Data Age: 71 Gender: F Height: 1.63 m Weight: 81 kg Last Vital Signs Temp 96.7 F L 10/05/21 09:38 Pulse 81 10/05/21 09:38 Resp 18 10/05/21 09:38 BP 102/45 L 10/05/21 09:38 Pulse Ox 100 10/05/21 09:38 Allergies Allergy/AdvReac Type Severity Reaction Status Date / Time No Known Allergies Allergy Verified 10/05/21 09:56 Home Medications Medication Instructions Recorded Confirmed Type ferrous sulfate 325 mg PO BID 08/23/19 10/02/21 History lansoprazole 30 mg PO DAILY 08/23/19 10/02/21 History levothyroxine 75 mcg PO DAILY 08/23/19 10/02/21 History pravastatin 10 mg PO DAILY 08/23/19 10/02/21 History cholecalciferol (vitamin D3) 25 1,000 unit PO DAILY 09/25/19 10/02/21 History mcg (1,000 unit) capsule cyanocobalamin (vitamin B-12) 500 500 mcg PO DAILY 09/25/19 10/02/21 History mcg tablet multivitamin 1 tablet PO DAILY 09/25/19 10/02/21 History albuterol sulfate 90 mcg/actuation 2 puff INHALATION Q4-6H PRN #8.5 gm 11/17/20 10/02/21 Rx aerosol inhaler budesonide-formoterol HFA 160 2 puff INHALATION Q12H #10.2 g 11/17/20 10/02/21 Rx mcg-4.5 mcg/actuation aerosol inhaler dabigatran etexilate [Pradaxa] 150 mg PO POST-TRANSFUSION 12/18/20 10/02/21 History montelukast 10 mg tablet See Rx Instructions .ROUTE 07/13/21 10/02/21 Rx .COMPLEX #90 tablet Spiriva Respimat 1.25 2 puff INHALATION DAILY #12 g NS 07/30/21 10/02/21 Rx mcg/actuation solution for inhalation gnauzg-dlilaynq-tyztaii 2 cap PO TID 30 Days #180 cap 09/09/21 10/02/21 Rx 6,000-19,000-30,000 unit capsule,delayed rel Laboratory Tests 10/02/21 10/04/21 10/04/21 09:14 11:50 16:23 WBC RBC Hgb Hct MCV MCH MCHC RDW Plt Count MPV Immature Gran % (Auto) Neut % (Auto) Lymph % (Auto) [place] % (Auto) Eos % (Auto) Baso % (Auto) Lymph # (Auto) [place] # (Auto) Eos # (Auto) Baso # (Auto) Abs Immat Gran (auto) Absolute Neuts (auto) Absolute Nucleated RBC Nucleated RBC % Sodium Potassium Chloride Carbon Dioxide Anion Gap BUN Creatinine Estim Creat Clear Calc Estimated GFR Glucose POC Capillary Glucose 102 mg/dl mg/dl 93 mg/dl mg/dl (65-105) (65-105) Calcium Magnesium Ferritin Total Bilirubin AST ALT Alkaline Phosphatase Lactate Dehydrogenase Total Protein Albumin Spvbb-4-Rvgwtinbw Ervmb-2-Yandgesuj Hhey-2-Guftrrld Yjak-3-Djtwivhz Gamma Globulins Abnorm Protein Band 1 Abnorm Protein Band 3 PEP Interpretation Cortisol Baseline Blood Type A Positive Antibody Screen Negative Crossmatch See Detail 10/05/21 10/05/21 10/05/21 00:24 05:50 07:52 WBC RBC Hgb Hct MCV MCH MCHC RDW Plt Count MPV Immature Gran % (Auto) Neut % (Auto) Lymph % (Auto) [place] % (Auto) Eos % (Auto) Baso % (Auto) Lymph # (Auto) [place] # (Auto) Eos # (Auto) Baso #
[2021-10-05] MEDS: BENZOCAINE (*SP) 60 ML SPRAY CAN (HURRICAINE) 1 SPRAY MUCOUS MEM (10:25)
--- NOTE | 2021-10-05 11:05 | SUR.OPER ---
EGD started at 1030 and ended at 1034. Colonoscopy started at 1039 and ended at 1059.
[2021-10-05] MEDS: PANTOPRAZOLE 40 MG TABLET PO ×2 (11:50→20:12)
[2021-10-05] MEDS: PRAVASTATIN SODIUM 10 MG TABLET PO (11:51)
[2021-10-05 16:19] LABS: Glucose Point of Care 95 mg/dl (65-105)
[2021-10-05 16:20] LABS: Add Urine Microscopic? YES; Appearance Urine Cloudy (Clear); Bacteria Urine 4+ /hpf; Bilirubin Urine Negative (Negative); Blood Urine Negative (Negative); Color Urine Yellow (Yellow); Glucose Urine UA Negative (Negative); Ketones Urine Negative (Negative); Leukocyte Esterase Ur 1+ LEU/UL (NEGATIVE); Mucus Urine Heavy /lpf; Nitrate Urine Positive (Negative); Protein Urine Negative (Negative); Specific Grav Ur 1.018 (1.001-1.035); Squamous Epithelial Cell Urine Many /hpf (Few); Urobilinogen Urine Negative mg/dL (<2.0); WBC Urine 0-3 /hpf (0-3)
[2021-10-05] MEDS: FERROUS SULFATE 324 MG TABLET PO (17:06)
[2021-10-05] MEDS: LIPASE/AMYLASE/PROTEASE 12,000 UNITS CAP 1 CAP PO (17:07)
[2021-10-05] MEDS: MONTELUKAST SODIUM 10 MG TABLET BY MOUTH (17:07)
[2021-10-05 17:54] LABS: Glucose Point of Care 93 mg/dl (65-105)
--- NOTE | 2021-10-05 18:06 | PM.IMPN ---
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 Status: Acute (6) GI bleed: Code(s): K92.2 - Gastrointestinal hemorrhage, unspecified Status: Acute (7) Chronic obstructive pulmonary disease: Code(s): J44.9 - Chronic obstructive pulmonary disease, unspecified Status: Acute (8) Atrial fibrillation: Code(s): I48.91 - Unspecified atrial fibrillation Status: Acute (9) Diabetes 1.5, 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 - Other specified diabetes mellitus without complications Status: Acute (10) UTI (urinary tract infection): Code(s): N39.0 - Urinary tract infection, site not specified Status: Acute Additional Plan 10/05/21 Rocephin for UTI labile BP w vol overload albumin and lasix AGIB ruled out on EGD/scope today cont anticoagulation for afib when cleared by GI pt is rate controlled not on medication for HR per med rec FeSO4- BID w colace ECHO reviewed will re-eval in am am labs Subjective Date/time seen: 10/05/21 18:06 pt states that she has swelling all over her body legs, arms, stomach, but no SOB she does complain of chest tightness too for the last 2 days. Had her EGD c/scope today without signs of active or recent bleeding Exam Narrative: General: chronically ill appearing not in acute distress HEENT: EOMI. Sclerae anicteric. Tacky mucous membranes. Oropharynx clear. Neck: Supple. No JVD. Respiratory: Lungs are clear to auscultation bilaterally. Cardiovascular: Regular rate and rhythm with S1-S2. Soft murmur at the left upper sternal border. Gastrointestinal: Abdomen is soft, nontender, and nondistended with positive bowel sounds globose and fluid wave Skin: Warm and dry. Generalized pallor. Extremities: No cyanosis or clubbing. 2+ pitting edema to the knees. 2+ in forearms Neurological: Alert. Cranial nerves 2-12 are grossly intact. No gross focal deficits to casual conversation. Psychiatric: Pleasant and cooperative with normal mood and affect. Objective Data Vital Signs Vital Signs: Vital Signs - 24 hr 10/04/21 19:46 10/04/21 20:00 10/05/21 00:00 Temperature 97.3 F L Pulse Rate 107 H 107 H 107 H Respiratory Rate 18 Blood Pressure 113/48 L Pulse Oximetry 92 10/05/21 03:15 10/05/21 04:00 10/05/21 08:00 Temperature 97.4 F L Pulse Rate 79 81 79 Respiratory Rate 18 Blood Pressure 102/62 Pulse Oximetry 100 10/05/21 09:07 10/05/21 09:38 10/05/21 11:02 Temperature 96.7 F L Pulse Rate 81 72 Respiratory Rate 18 26 H Blood Pressure 102/45 L 89/69 L Pulse Oximetry 92 100 95 10/05/21 11:12 10/05/21 11:22 10/05/21 11:50 Temperature 96.8 F L Pulse Rate 81 75 75 Respiratory Rate 21 H 21 H 16 Blood Pressure 66/59 L 86/51 L 92/64 L Pulse Oximetry 97 98 99 10/05/21 12:00 10/05/21 14:00 10/05/21 16:00 Temperature 97.8 F Pulse Rate 89 80 94 Respiratory Rate 16 Blood Pressure 108/64 Pulse Oximetry 100 Intake/Output Intake/Output: Intake & Output 10/02/21 10/03/21 10/04/21 10/05/21 23:59 23:59 23:59 23:59 Intake Total 1731 3710 2100 660 Output Total 600 Balance 1731 3110 2100 660 Meds/Results Medications: Active Medications Generic Name Dose Route Start Last Admin Trade Name Freq PRN Reason Stop Dose Admin Acetaminophen 650 mg 10/04/21 22:29 10/04/21 22:40 Acetaminophen 325 Mg Tablet PO 650 mg Q6H PRN Administration Mild Pain (1-3) or Fever A
[2021-10-05] MEDS: ALBUMIN HUMAN 25% 12.5 GM/50ML 50 ML IVPB (18:56)
[2021-10-05 19:14] LABS: Troponin I < 0.012 ng/mL (0.000-0.034)
[2021-10-05] MEDS: FUROSEMIDE INJ 40 MG/4 ML VIAL IV PUSH (20:12)
[2021-10-05 20:17] LABS: Total Protein Urine Random < 5 mg/dL
[2021-10-05] MEDS: ACETAMINOPHEN 325 MG TABLET 650 MG PO (21:32)
[2021-10-06] VITALS (15 sets, daily range): BP systolic 90–104; BP diastolic 48–69; PULSE 70–91; RESP 14–18; TEMP 35.8–36.7; O2SAT 97–100
[2021-10-06 00:50] LABS: Glucose Point of Care 91 mg/dl (65-105)
--- NOTE | 2021-10-06 01:15 | PC.NURSE ---
second dose of lasix held per Dr Wynne due to bp 90/48.
[2021-10-06] MEDS: ALBUMIN HUMAN 25% 12.5 GM/50ML 50 ML IVPB (01:19)
[2021-10-06] MEDS: LEVOTHYROXINE SODIUM 75 MCG TABLET PO (04:52)
[2021-10-06] MEDS: CENTRAL LINE FLUSH 10 ML IV PUSH ×2 (04:53→13:42)
[2021-10-06 05:18] LABS: Basophils Percent Auto 0.4 % (0.2-1.2); Eosinophils Absolute Auto 0.1 K/mm3 (0-0.3); Eosinophils Percent Auto 1.3 % (0-4.4); Hematocrit 21.6 % (37.0-47.0); Immature Granulocyte Absolute 0.03 K/mm3 (0.00-0.031); Immature Granulocyte Percent A 0.4 % (0-0.5); Lymphocytes Absolute Auto 1.56 K/mm3 (0.9-3.2); Mean Corpuscular HGB Conc 32.4 g/dl (32-36); Mean Corpuscular Hemoglobin 32.3 pg (26-34); Mean Corpuscular Volume 99.5 fl (80-100); Mean Platelet Volume 10.3 fl (7.4-10.4); Monocytes Absolute Auto 0.7 K/mm3 (0.1-0.6); Neutrophils Absolute Auto 4.7 K/mm3 (1.3-6.7); Neutrophils Percent Auto 65.9 % (45.5-73.1); Platelet Count Result 205 k/mm3 (150-375); Red Blood Count 2.17 M/mm3 (4.2-5.4); Red Cell Distribution Width 15.5 % (11.5-14.5); White Blood Count 7.1 K/mm3 (4.5-10.0)
[2021-10-06 05:35] LABS: Alanine Aminotransferase 23 U/L (4-35); Albumin Level 2.1 g/dL (3.5-5.1); Alkaline Phosphatase 45 U/L (38-126); Anion Gap 2 mmol/L (8-16); Aspartate Amino Transferase 22 U/L (14-36); Bilirubin,Total 0.6 mg/dL (0.2-1.3); Blood Urea Nitrogen 8 mg/dL (7-17); CRP 0.7 mg/dL (<1.0); Calcium 7.6 mg/dL (8.4-10.2); Carbon Dioxide 21 mmol/L (22-30); Chloride 112 mmol/L (98-107); Estimated CRCL calculation 46 ml/min; Estimated Glomerular Filt Rate 54; Glucose 73 mg/dL (65-110); Magnesium 1.6 mg/dL (1.6-2.3); Potassium 3.6 mmol/L (3.4-5.0); Sodium 135 mmol/L (137-145)
[2021-10-06] MEDS: FLUTICASONE/SALMETEROL 115-21 MCG INHALER 1 PUFF 2 PUFF INHALATION ×2 (07:58→19:47)
[2021-10-06] MEDS: UMECLIDINIUM BROMIDE 62.5 MCG ELLIPTA 1 PUFF INHALATION (07:58)
[2021-10-06] MEDS: FERROUS SULFATE 324 MG TABLET PO ×2 (08:03→17:01)
[2021-10-06] MEDS: PRAVASTATIN SODIUM 10 MG TABLET PO (08:03)
[2021-10-06] MEDS: LIPASE/AMYLASE/PROTEASE 12,000 UNITS CAP 1 CAP PO ×3 (08:03→17:00)
[2021-10-06] MEDS: PANTOPRAZOLE 40 MG TABLET PO ×2 (08:03→20:46)
--- NOTE | 2021-10-06 08:33 | WPDGIPROGNO ---
Progress Note: A&P Assessment and Plan (1) GI bleed: Code(s): K92.2 - Gastrointestinal hemorrhage, unspecified Status: Acute Assessment and Plan: no signs of bleeding, probably was perianal in setting of chronic anticoagulation will follow [place], call if questions (2) Acute on chronic blood loss anemia: Code(s): D62 - Acute posthemorrhagic anemia Status: Acute Assessment and Plan: she also has malabsorption with chronic anemia no absolute contraindications by GI to use blood thinners but primary will need to monitor for signs of anemia probably will need to see hematology as outpatient (3) Marques's esophagus with esophagitis: Code(s): K22.70 - Marques's esophagus without dysplasia; K20.90 - Esophagitis, unspecified without bleeding Status: Acute Assessment and Plan: on ppi (4) Malabsorption: Code(s): K90.9 - Intestinal malabsorption, unspecified Status: Acute Assessment and Plan: this is due to remote history of SB resection as bariatric surgery recent weight loss and also low albumin with anasarca (5) Hypoalbuminemia: Code(s): E88.09 - Other disorders of plasma-protein metabolism, not elsewhere classified Status: Acute (6) Generalized edema: Code(s): R60.1 - Generalized edema Status: Acute (7) UTI (urinary tract infection): Code(s): N39.0 - Urinary tract infection, site not specified Status: Acute Assessment and Plan: on abx (8) Chronic anticoagulation: Code(s): Z79.01 - custodial (current) use of anticoagulants Status: Acute Subjective Date/time seen: 10/06/21 08:33 Interval history: egd and colonoscopy without signs of bleeding. She did not have a good night mostly because she had to urinate every hour since she is on diuretics Review of Systems Review of Systems: All systems reviewed & are unremarkable except as noted in HPI and below Exam Const: General: no acute distress HENMT: General nose exam: Normal nares present Eyes: Pupils: Equal, round and reactive pupils present Neck: Neck: supple Resp: Auscultation: clear to auscultation bilaterally Cardio: Rate: regular rate GI: Inspection: non-distended GI Palp: Yes Soft to palpation and No Tenderness to palpation present (GI) Auscultation: normal bowel sounds Skin: General skin exam: normal color Neuro: Speech: normal speech Motor exam (neuro): Normal motor muscle tone present throughout Extrem: General: edema bilateral Objective Data Vital Signs Vital Signs: Vital Signs - 24 hr 10/05/21 09:07 10/05/21 09:38 10/05/21 11:02 Temperature 96.7 F L Pulse Rate 81 72 Respiratory Rate 18 26 H Blood Pressure 102/45 L 89/69 L Pulse Oximetry 92 100 95 10/05/21 11:12 10/05/21 11:22 10/05/21 11:50 Temperature 96.8 F L Pulse Rate 81 75 75 Respiratory Rate 21 H 21 H 16 Blood Pressure 66/59 L 86/51 L 92/64 L Pulse Oximetry 97 98 99 10/05/21 12:00 10/05/21 14:00 10/05/21 16:00 Temperature 97.8 F Pulse Rate 89 80 94 Respiratory Rate 16 Blood Pressure 108/64 Pulse Oximetry 100 10/05/21 19:28 10/05/21 20:00 10/05/21 21:35 Temperature 97.2 F L Pulse Rate 76 83 Respiratory Rate 20 Blood Pressure 96/54 L Pulse Oximetry 99 99 96 10/06/21 00:00 10/06/21 01:02 10/06/21 04:00 Temperature Pulse Rate 84 78 Respiratory Rate Blood Pressure 90/48 L Pulse Oximetry 10/06/21 04:50 Temperature 96.4 F L Pulse Rate 70 Respiratory Rate 18 Blood Pressure 102/69 Pulse Oximetry 100 Intake/Output Intake/Output: Intake & Output 10/03/21 10/04/21 10/05/21 10/06/21 23:59 23:59 23:59 23:59 Intake Total 3710 2100 760 530 Output Total 445 447 3725 Balance 3110 2100 160 -1370 Meds/Results Medications: Active Medications Generic Name Dose Route Start Last Admin Trade Name Freq PRN Reason Stop Dose Admin Acetaminophen 650 mg 10/04/21 22:29
--- NOTE | 2021-10-06 09:20 | PM.IMPN ---
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 Status: Acute (6) GI bleed: Code(s): K92.2 - Gastrointestinal hemorrhage, unspecified Status: Acute (7) Chronic obstructive pulmonary disease: Code(s): J44.9 - Chronic obstructive pulmonary disease, unspecified Status: Acute (8) Atrial fibrillation: Code(s): I48.91 - Unspecified atrial fibrillation Status: Acute (9) Diabetes 1.5, 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 - Other specified diabetes mellitus without complications Status: Acute (10) UTI (urinary tract infection): Code(s): N39.0 - Urinary tract infection, site not specified Status: Acute Additional Plan 10/05/21 Rocephin for UTI labile BP w vol overload albumin and lasix AGIB ruled out on EGD/scope today cont anticoagulation for afib when cleared by GI pt is rate controlled not on medication for HR per med rec FeSO4- BID w colace ECHO reviewed will re-eval in am am labs 10/06/21 Imodium for diarrhea protein supplements medications reviewed x offending agents , none associated w anasarca cont diuresis w albumin fluid restriction PRBC ordered may need low dose midodrine Is/Os case reviewed w GI , recs appeciated Subjective Date/time seen: 10/06/21 09:20 pt w 1900 cc of fluid output but still w swelling of arms and legs that she complains of w associated restriction in mobility Exam Narrative: General: chronically ill appearing not in acute distress obese HEENT: EOMI. Sclerae anicteric. Oropharynx clear. Neck: Supple. No JVD. Respiratory: Lungs are clear to auscultation bilaterally. Cardiovascular: Regular rate and rhythm with S1-S2 Gastrointestinal: Abdomen is soft, nontender, and nondistended with positive bowel sounds globose and fluid wave Skin: Warm and dry. Extremities: No cyanosis or clubbing. 2+ pitting edema to the knees. 2+ in forearms L>R Neurological: Alert. Cranial nerves 2-12 are grossly intact. No gross focal deficits to casual conversation. Psychiatric: Pleasant and cooperative with normal mood and affect. Objective Data Vital Signs Vital Signs: Vital Signs - 24 hr 10/05/21 09:38 10/05/21 11:02 10/05/21 11:12 Temperature 96.7 F L Pulse Rate 81 72 81 Respiratory Rate 18 26 H 21 H Blood Pressure 102/45 L 89/69 L 66/59 L Pulse Oximetry 100 95 97 10/05/21 11:22 10/05/21 11:50 10/05/21 12:00 Temperature 96.8 F L Pulse Rate 75 75 89 Respiratory Rate 21 H 16 Blood Pressure 86/51 L 92/64 L Pulse Oximetry 98 99 10/05/21 14:00 10/05/21 16:00 10/05/21 19:28 Temperature 97.8 F 97.2 F L Pulse Rate 80 94 76 Respiratory Rate 16 20 Blood Pressure 108/64 96/54 L Pulse Oximetry 100 99 10/05/21 20:00 10/05/21 21:35 10/06/21 00:00 Temperature Pulse Rate 83 84 Respiratory Rate Blood Pressure Pulse Oximetry 99 96 10/06/21 01:02 10/06/21 04:00 10/06/21 04:50 Temperature 96.4 F L Pulse Rate 78 70 Respiratory Rate 18 Blood Pressure 90/48 L 102/69 Pulse Oximetry 100 Intake/Output Intake/Output: Intake & Output 10/03/21 10/04/21 10/05/21 10/06/21 23:59 23:59 23:59 23:59 Intake Total 3710 2100 760 530 Output Total 837 792 1301 Balance 3110 2100 160 -1370 Meds/Results Medications: Active Medications Generic Name Dose Route Start Last Admin Trade Name Freq PRN Reason Stop Dose Admin Acetaminophen 650 mg 10/04/21 22:29 10/05/21 21:32 Acet
[2021-10-06] MEDS: FUROSEMIDE INJ 40 MG/4 ML VIAL 20 MG IV PUSH ×2 (11:27→17:01)
[2021-10-06] MEDS: SODIUM CHLORIDE 0.9% IV 250 ML 30 ML IV CONT (11:28)
[2021-10-06 11:55] LABS: Glucose Point of Care 92 mg/dl (65-105)
[2021-10-06 15:19] LABS: IFOB Positive Control Positive; Immunochemical Fecal Occult Bl Positive (N)
[2021-10-06 16:33] LABS: Glucose Point of Care 95 mg/dl (65-105)
[2021-10-06] MEDS: MONTELUKAST SODIUM 10 MG TABLET BY MOUTH (17:00)
[2021-10-06 17:05] LABS: Total Protein Urine Random 8 mg/dL
[2021-10-06 17:16] LABS: Hematocrit 27.7 % (37.0-47.0); Hemoglobin 9.3 g/dL (12.0-15.0)
[2021-10-06] MEDS: ALBUTEROL SULFATE (*SP) AEROSOL 1 PUFF 2 PUFF INHALATION (19:47)
[2021-10-06 22:50] LABS: Glucose Point of Care 104 mg/dl (65-105)
[2021-10-07] VITALS (10 sets, daily range): BP systolic 92–95; BP diastolic 57–68; PULSE 65–89; RESP 16–18; TEMP 36.2–36.6; O2SAT 92–100
[2021-10-07 01:01] LABS: Vitamin D 1,25 (OH)2 Total 17 pg/mL (18-72); Vitamin D2 1,25 (OH)2 <8 pg/mL; Vitamin D3 1,25 (OH)2 17 pg/mL
[2021-10-07] MEDS: LEVOTHYROXINE SODIUM 75 MCG TABLET PO (05:15)
[2021-10-07] MEDS: GLUCOSE ORAL GEL 15 GM OF GLUCSE IN 37.5 GM TUBE PO (05:18)
[2021-10-07] MEDS: CENTRAL LINE FLUSH 10 ML IV PUSH ×2 (05:21→05:22)
[2021-10-07 05:40] LABS: Glucose Point of Care 88 mg/dl (65-105)
[2021-10-07 05:40] LABS: Glucose Point of Care 67 mg/dl (65-105)
[2021-10-07 07:48] LABS: Glucose Point of Care 72 mg/dl (65-105)
[2021-10-07] MEDS: LIPASE/AMYLASE/PROTEASE 12,000 UNITS CAP 1 CAP PO ×3 (08:06→17:13)
[2021-10-07] MEDS: FERROUS SULFATE 324 MG TABLET PO ×2 (08:06→17:12)
[2021-10-07] MEDS: PANTOPRAZOLE 40 MG TABLET PO ×2 (08:06→20:12)
[2021-10-07] MEDS: PRAVASTATIN SODIUM 10 MG TABLET PO (08:06)
[2021-10-07] MEDS: UMECLIDINIUM BROMIDE 62.5 MCG ELLIPTA 1 PUFF INHALATION (08:58)
[2021-10-07] MEDS: FLUTICASONE/SALMETEROL 115-21 MCG INHALER 1 PUFF 2 PUFF INHALATION ×2 (08:58→19:41)
[2021-10-07 12:04] LABS: Glucose Point of Care 89 mg/dl (65-105)
--- NOTE | 2021-10-07 12:20 | PM.IMPN ---
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 Status: Acute (6) GI bleed: Code(s): K92.2 - Gastrointestinal hemorrhage, unspecified Status: Acute (7) Chronic obstructive pulmonary disease: Code(s): J44.9 - Chronic obstructive pulmonary disease, unspecified Status: Acute (8) Atrial fibrillation: Code(s): I48.91 - Unspecified atrial fibrillation Status: Acute (9) Diabetes 1.5, 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 - Other specified diabetes mellitus without complications Status: Acute (10) UTI (urinary tract infection): Code(s): N39.0 - Urinary tract infection, site not specified Status: Acute Additional Plan 10/05/21 Rocephin for UTI labile BP w vol overload albumin and lasix AGIB ruled out on EGD/scope today cont anticoagulation for afib when cleared by GI pt is rate controlled not on medication for HR per med rec FeSO4- BID w colace ECHO reviewed will re-eval in am am labs 10/06/21 Imodium for diarrhea protein supplements medications reviewed x offending agents , none associated w anasarca cont diuresis w albumin fluid restriction PRBC ordered may need low dose midodrine Is/Os case reviewed w GI , recs appreciated 10/07/21 pt improving has not requested imodium for her diarrhea encouraged to do so cont diuresis 3.7L negative in last 72hrs since documentation started cont fluid restriction cont lasix 40mg BID careful monitoring of BP to keep MAP> 65 Subjective Date/time seen: 10/07/21 12:20 pt states that she is feeling a lot better after receiving the blood Exam Narrative: General: chronically ill appearing not in acute distress obese HEENT: EOMI. Sclerae anicteric. Neck: Supple. No JVD. Respiratory: Lungs are clear to auscultation bilaterally. Cardiovascular: Regular rate and rhythm with S1-S2 Gastrointestinal: Abdomen is soft, nontender, and nondistended with positive bowel sounds globose and fluid wave Skin: Warm and dry. Extremities: No cyanosis or clubbing. 2+ pitting edema to the knees. 2+ in forearms L>R Neurological: Alert. Cranial nerves 2-12 are grossly intact. No gross focal deficits to casual conversation. Psychiatric: Pleasant and cooperative with normal mood and affect. Objective Data Vital Signs Vital Signs: Vital Signs - 24 hr 10/06/21 13:10 10/06/21 14:10 10/06/21 14:30 Temperature 97.1 F L 97.5 F L 97.6 F Pulse Rate 76 73 71 Respiratory Rate 14 16 16 Blood Pressure 104/63 104/51 L 104/58 L Pulse Oximetry 97 100 100 10/06/21 16:00 10/06/21 19:48 10/06/21 20:00 Temperature Pulse Rate 71 74 84 Respiratory Rate 16 Blood Pressure Pulse Oximetry 100 10/06/21 22:00 10/07/21 00:00 10/07/21 04:00 Temperature 98.0 F Pulse Rate 76 80 65 Respiratory Rate 18 Blood Pressure 93/61 L Pulse Oximetry 100 10/07/21 05:08 10/07/21 08:00 Temperature 97.6 F 97.2 F L Pulse Rate 87 76 Respiratory Rate 16 16 Blood Pressure 92/61 L 95/58 L Pulse Oximetry 97 98 Intake/Output Intake/Output: Intake & Output 10/04/21 10/05/21 10/06/21 10/07/21 23:59 23:59 23:59 23:59 Intake Total 2100 760 1610 640 Output Total 600 5000 900 Balance 2100 365 -0796 -199 Meds/Results Medications: Active Medications Generic Name Dose Route Start Last Admin Trade Name Freq PRN Reason Stop Dose Admin Acetaminophen 650 mg 10/04/21 22:29 10/05/21 21:32 Acetaminophen 325 Mg Ta
--- NOTE | 2021-10-07 12:49 | PC.NURSE ---
Multiple attempts have been made to contact Dr. Peralta about the patient venous doppler results and getting orders to pull it, place a new one in, put in a different peripheral access, or even if this nurse should give the IV push lasix. This nurse was informed by house superviser to contact Jane in the physicians office to text the physician. No response from the Physicians office but a message was left.
[2021-10-07] MEDS: NEOMYCIN/POLYMYXIN/BACITRACIN OINTMENT PACKET 1 PACKET (13:47)
[2021-10-07 14:10] LABS: Basophils Percent Auto 0.4 % (0.2-1.2); Eosinophils Percent Auto 0.4 % (0-4.4); Hematocrit 29.2 % (37.0-47.0); Hemoglobin 9.6 g/dL (12.0-15.0); Immature Granulocyte Absolute 0.01 K/mm3 (0.00-0.031); Immature Granulocyte Percent A 0.1 % (0-0.5); Lymphocytes Absolute Auto 1.04 K/mm3 (0.9-3.2); Lymphocytes Percent Auto 14.4 % (18.3-44.2); Mean Corpuscular HGB Conc 32.9 g/dl (32-36); Mean Corpuscular Hemoglobin 31.7 pg (26-34); Mean Corpuscular Volume 96.4 fl (80-100); Mean Platelet Volume 10.1 fl (7.4-10.4); Monocytes Absolute Auto 0.7 K/mm3 (0.1-0.6); Monocytes Percent Auto 10.1 % (2.6-8.5); Neutrophils Absolute Auto 5.4 K/mm3 (1.3-6.7); Neutrophils Percent Auto 74.6 % (45.5-73.1); Platelet Count Result 191 k/mm3 (150-375); Red Blood Count 3.03 M/mm3 (4.2-5.4); Red Cell Distribution Width 16.5 % (11.5-14.5); White Blood Count 7.2 K/mm3 (4.5-10.0)
[2021-10-07 14:29] LABS: Anion Gap 3 mmol/L (8-16); Blood Urea Nitrogen 6 mg/dL (7-17); Carbon Dioxide 21 mmol/L (22-30); Chloride 110 mmol/L (98-107); Estimated CRCL calculation 55 ml/min; Estimated Glomerular Filt Rate > 60; Glucose 84 mg/dL (65-110); Sodium 134 mmol/L (137-145)
--- NOTE | 2021-10-07 15:07 | PC.NURSE ---
On 10/07/21, the student, [Sonam Pacheco], provided care and completed [facility] documentation on this patient. I have reviewed the student's documentation and agree with the findings.
[2021-10-07 16:39] LABS: Glucose Point of Care 90 mg/dl (65-105)
[2021-10-07] MEDS: FUROSEMIDE INJ 40 MG/4 ML VIAL 20 MG IV PUSH (17:12)
[2021-10-07] MEDS: MONTELUKAST SODIUM 10 MG TABLET BY MOUTH (17:13)
[2021-10-07 21:26] LABS: Alpha 1 Globulin 0.3 g/dL (0.2-0.3); Alpha 2 Globulin 0.4 g/dL (0.5-0.9); Beta 1 Globulin 0.2 g/dL (0.4-0.6); Gamma Globulin 0.6 g/dL (0.8-1.7); Protein, Total 3.5 g/dL (6.1-8.1)
[2021-10-07 22:20] LABS: Glucose Point of Care 90 mg/dl (65-105)
[2021-10-08] VITALS (13 sets, daily range): BP systolic 90–104; BP diastolic 50–68; PULSE 68–107; RESP 14–16; TEMP 36.4–37.2; O2SAT 96–100
[2021-10-08 01:46] LABS: Lactoferrin, Stool Positive (Negative)
[2021-10-08 03:06] LABS: Glucose Point of Care 87 mg/dl (65-105)
[2021-10-08] MEDS: LEVOTHYROXINE SODIUM 75 MCG TABLET PO (05:55)
[2021-10-08 06:14] LABS: Basophils Percent Auto 0.5 % (0.2-1.2); Eosinophils Absolute Auto 0.1 K/mm3 (0-0.3); Hemoglobin 9.6 g/dL (12.0-15.0); Immature Granulocyte Absolute 0.03 K/mm3 (0.00-0.031); Immature Granulocyte Percent A 0.5 % (0-0.5); Lymphocytes Absolute Auto 1.48 K/mm3 (0.9-3.2); Lymphocytes Percent Auto 23.5 % (18.3-44.2); Mean Corpuscular HGB Conc 33.1 g/dl (32-36); Mean Corpuscular Volume 96.7 fl (80-100); Mean Platelet Volume 10.5 fl (7.4-10.4); Monocytes Absolute Auto 0.7 K/mm3 (0.1-0.6); Monocytes Percent Auto 11.6 % (2.6-8.5); Neutrophils Percent Auto 62.9 % (45.5-73.1); Platelet Count Result 198 k/mm3 (150-375); Red Cell Distribution Width 16.1 % (11.5-14.5); White Blood Count 6.3 K/mm3 (4.5-10.0)
[2021-10-08 06:24] LABS: Alanine Aminotransferase 28 U/L (4-35); Albumin Level 2.1 g/dL (3.5-5.1); Alkaline Phosphatase 47 U/L (38-126); Anion Gap 1 mmol/L (8-16); Aspartate Amino Transferase 34 U/L (14-36); Bilirubin,Total 0.6 mg/dL (0.2-1.3); Blood Urea Nitrogen 6 mg/dL (7-17); Calcium 7.2 mg/dL (8.4-10.2); Carbon Dioxide 25 mmol/L (22-30); Chloride 108 mmol/L (98-107); Estimated CRCL calculation 49 ml/min; Estimated Glomerular Filt Rate > 60; Glucose 75 mg/dL (65-110); Magnesium 1.5 mg/dL (1.6-2.3); Phosphorus 4.4 mg/dL (2.5-4.5); Potassium 3.2 mmol/L (3.4-5.0); Sodium 134 mmol/L (137-145)
[2021-10-08 07:59] LABS: Glucose Point of Care 76 mg/dl (65-105)
[2021-10-08] MEDS: LIPASE/AMYLASE/PROTEASE 12,000 UNITS CAP 1 CAP PO ×3 (07:59→16:14)
[2021-10-08] MEDS: PANTOPRAZOLE 40 MG TABLET PO ×2 (07:59→20:10)
[2021-10-08] MEDS: PRAVASTATIN SODIUM 10 MG TABLET PO (07:59)
[2021-10-08] MEDS: FERROUS SULFATE 324 MG TABLET PO ×2 (07:59→16:13)
[2021-10-08] MEDS: ALBUMIN HUMAN 25% 25 GM/100 ML 100 ML IVPB (08:46)
[2021-10-08] MEDS: UMECLIDINIUM BROMIDE 62.5 MCG ELLIPTA 1 PUFF INHALATION (09:30)
[2021-10-08] MEDS: FLUTICASONE/SALMETEROL 115-21 MCG INHALER 1 PUFF 2 PUFF INHALATION ×2 (09:31→20:21)
[2021-10-08] MEDS: FUROSEMIDE INJ 40 MG/4 ML VIAL IV PUSH ×2 (10:30→16:13)
--- NOTE | 2021-10-08 11:02 | PCNFU ---
Nutrition Follow-Up Complete: Unintended Weight loss as related to possible GI bleed as evidenced by greater than 10% weight loss in 6 months. Goal: Adequate Intake of at leat 75% of meals/supplements Patient is progressing towards goal. We will continue current goal. Pt current nutrition is Regular with [employer] Ice cream BID. Last recorded weight is 77.4 kg, down from 83 kg on admit. Bowel Motility:+BM reported 10/07 Labs Reviewed:K 3.3,Na 134, Hct 29.0, Hgb 9.6 Meds Noted:Pravastatin Sodium, Synthroid, Ferrous Sulfate, Lasix, Rocephin, Protonix Skin: WNL Additional Notes: Diet order has advanced to a regular diet. Oral Intake 75-80% of meals. Patient is eating the ice cream providing an additional 300 kcals and 9 gms protein. Agree with diet orders. Monitoring: RD will monitor every 5 days.
--- NOTE | 2021-10-08 11:18 | PM.IMPN ---
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 Status: Acute (6) GI bleed: Code(s): K92.2 - Gastrointestinal hemorrhage, unspecified Status: Acute (7) Chronic obstructive pulmonary disease: Code(s): J44.9 - Chronic obstructive pulmonary disease, unspecified Status: Acute (8) Atrial fibrillation: Code(s): I48.91 - Unspecified atrial fibrillation Status: Acute (9) Diabetes 1.5, 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 - Other specified diabetes mellitus without complications Status: Acute (10) UTI (urinary tract infection): Code(s): N39.0 - Urinary tract infection, site not specified Status: Acute Additional Plan 10/05/21 Rocephin for UTI labile BP w vol overload albumin and lasix AGIB ruled out on EGD/scope today cont anticoagulation for afib when cleared by GI pt is rate controlled not on medication for HR per med rec FeSO4- BID w colace ECHO reviewed will re-eval in am am labs 10/06/21 Imodium for diarrhea protein supplements medications reviewed x offending agents , none associated w anasarca cont diuresis w albumin fluid restriction PRBC ordered may need low dose midodrine Is/Os case reviewed w GI , recs appreciated 10/07/21 pt improving has not requested imodium for her diarrhea encouraged to do so cont diuresis 3.7L negative in last 72hrs since documentation started cont fluid restriction cont lasix 40mg BID careful monitoring of BP to keep MAP> 65 10/08/21 diuresis has slowed will add albumin and lasix at higher dose to encourage output as BP has been soft pt overall doing better cont current care anticipate dc in 24-48hrs home w HHC and outpt GI, heme/onc eval Subjective Date/time seen: 10/08/21 11:18 pt doing better, edema improving, working w PT anticipate home w C soon Exam Narrative: General: chronically ill appearing not in acute distress obese , looks better today HEENT: EOMI. Sclerae anicteric. Neck: Supple. No JVD. Respiratory: no use of accessory muscles no distress symmetric chest rise Cardiovascular: Regular rate and rhythm with S1-S2 Gastrointestinal: Abdomen nondistended Skin: Warm and dry. Extremities: No cyanosis or clubbing. 2+ pitting edema to the knees. 1+ in forearms L>R Neurological: Alert. Cranial nerves 2-12 are grossly intact. No gross focal deficits to casual conversation. Psychiatric: Pleasant and cooperative with normal mood and affect. Objective Data Vital Signs Vital Signs: Vital Signs - 24 hr 10/07/21 12:00 10/07/21 14:00 10/07/21 16:00 Temperature 97.2 F L Pulse Rate 82 75 72 Respiratory Rate 18 Blood Pressure 94/57 L Pulse Oximetry 100 10/07/21 19:42 10/07/21 20:00 10/07/21 21:11 Temperature 97.8 F Pulse Rate 69 75 89 Respiratory Rate 16 Blood Pressure 95/68 L Pulse Oximetry 92 10/08/21 00:00 10/08/21 04:00 10/08/21 06:00 Temperature 97.5 F L Pulse Rate 107 H 81 72 Respiratory Rate 14 Blood Pressure 99/50 L Pulse Oximetry 96 Intake/Output Intake/Output: Intake & Output 10/05/21 10/06/21 10/07/21 10/08/21 23:59 23:59 23:59 23:59 Intake Total 760 1610 1010 340 Output Total 600 5000 1350 500 Balance 160 -3390 -340 -160 Meds/Results Medications: Active Medications Generic Name Dose Route Start Last Admin Trade Name Freq PRN Reason Stop Dose Admin Acetaminophen 650 mg 10/04/21 22:29 10/05/21 21:32
[2021-10-08 11:35] LABS: Glucose Point of Care 72 mg/dl (65-105)
[2021-10-08] MEDS: LOPERAMIDE HCL 2 MG CAPSULE PO (13:10)
[2021-10-08 13:23] LABS: Glucose Point of Care 80 mg/dl (65-105)
[2021-10-08 16:53] LABS: Glucose Point of Care 90 mg/dl (65-105)
[2021-10-08] MEDS: MONTELUKAST SODIUM 10 MG TABLET BY MOUTH (17:36)
[2021-10-08] MEDS: MELATONIN 5 MG TABLET PO (20:10)
[2021-10-08 20:25] LABS: Glucose Point of Care 104 mg/dl (65-105)
[2021-10-09] VITALS (9 sets, daily range): BP systolic 90–102; BP diastolic 52–63; PULSE 66–116; RESP 16–19; TEMP 36.5–36.7; O2SAT 98–100
[2021-10-09] MEDS: ACETAMINOPHEN 325 MG TABLET 650 MG PO (00:46)
[2021-10-09] MEDS: LEVOTHYROXINE SODIUM 75 MCG TABLET PO (06:00)
[2021-10-09 06:03] LABS: Alanine Aminotransferase 25 U/L (4-35); Albumin Level 2.2 g/dL (3.5-5.1); Alkaline Phosphatase 44 U/L (38-126); Anion Gap 2 mmol/L (8-16); Aspartate Amino Transferase 25 U/L (14-36); Bilirubin,Total 0.7 mg/dL (0.2-1.3); Blood Urea Nitrogen 5 mg/dL (7-17); Calcium 7.1 mg/dL (8.4-10.2); Carbon Dioxide 30 mmol/L (22-30); Chloride 103 mmol/L (98-107); Estimated CRCL calculation 42 ml/min; Estimated Glomerular Filt Rate > 60; Glucose 76 mg/dL (65-110); Magnesium 1.3 mg/dL (1.6-2.3); Potassium 2.5 mmol/L (3.4-5.0); Sodium 135 mmol/L (137-145)
[2021-10-09] MEDS: POTASSIUM CHLORIDE 20 MEQ TABLET 80 MEQ PO (06:40)
[2021-10-09 06:54] LABS: Creatinine, Random Urine 140 mg/dL (20-275); Total Protein/Creatinine Ratio 114 mg/g creat (21-161)
[2021-10-09 07:50] LABS: Hematocrit 26.2 % (37.0-47.0); Hemoglobin 8.8 g/dL (12.0-15.0); Mean Corpuscular HGB Conc 33.6 g/dl (32-36); Mean Corpuscular Hemoglobin 31.4 pg (26-34); Mean Corpuscular Volume 93.6 fl (80-100); Mean Platelet Volume 10.6 fl (7.4-10.4); Platelet Count Result 235 k/mm3 (150-375); Red Cell Distribution Width 15.9 % (11.5-14.5); White Blood Count 6.3 K/mm3 (4.5-10.0)
--- NOTE | 2021-10-09 07:52 | PM.IMPN ---
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 Status: Acute (6) GI bleed: Code(s): K92.2 - Gastrointestinal hemorrhage, unspecified Status: Acute (7) Chronic obstructive pulmonary disease: Code(s): J44.9 - Chronic obstructive pulmonary disease, unspecified Status: Acute (8) Atrial fibrillation: Code(s): I48.91 - Unspecified atrial fibrillation Status: Acute (9) Diabetes 1.5, 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 - Other specified diabetes mellitus without complications Status: Acute (10) UTI (urinary tract infection): Code(s): N39.0 - Urinary tract infection, site not specified Status: Acute Additional Plan 10/05/21 Rocephin for UTI labile BP w vol overload albumin and lasix AGIB ruled out on EGD/scope today cont anticoagulation for afib when cleared by GI pt is rate controlled not on medication for HR per med rec FeSO4- BID w colace ECHO reviewed will re-eval in am am labs 10/06/21 Imodium for diarrhea protein supplements medications reviewed x offending agents , none associated w anasarca cont diuresis w albumin fluid restriction PRBC ordered may need low dose midodrine Is/Os case reviewed w GI , recs appreciated 10/07/21 pt improving has not requested imodium for her diarrhea encouraged to do so cont diuresis 3.7L negative in last 72hrs since documentation started cont fluid restriction cont lasix 40mg BID careful monitoring of BP to keep MAP> 65 10/08/21 diuresis has slowed will add albumin and lasix at higher dose to encourage output as BP has been soft pt overall doing better cont current care anticipate dc in 24-48hrs home w HHC and outpt GI, heme/onc eval 10/09/21 1.5L negative yesterday BP holding cont diuresis mag and K ordered cont lasix 40mg BID Hgb 8.8 today will cont to trend Subjective Date/time seen: 10/09/21 07:52 pt cont to diurese well, states legs and arms are still swollen but improved abd pain yesterday after taking imodium, pt would like this medication stopped Exam Narrative: General: chronically ill appearing not in acute distress obese , looks better today HEENT: EOMI. Sclerae anicteric. Neck: Supple. No JVD. Respiratory: no use of accessory muscles no distress symmetric chest rise Cardiovascular: Regular rate and rhythm with S1-S2 Gastrointestinal: Abdomen nondistended Skin: Warm and dry. Extremities: No cyanosis or clubbing. 1+ pitting edema to the knees. 1+ in forearms L>R Neurological: Alert. Cranial nerves 2-12 are grossly intact. No gross focal deficits to casual conversation. Psychiatric: Pleasant and cooperative with normal mood and affect. Objective Data Vital Signs Vital Signs: Vital Signs - 24 hr 10/08/21 08:00 10/08/21 12:00 10/08/21 14:00 Temperature 97.7 F Pulse Rate 83 82 70 Respiratory Rate 16 Blood Pressure 99/56 L Pulse Oximetry 100 10/08/21 15:58 10/08/21 16:00 10/08/21 16:01 Temperature Pulse Rate 71 Respiratory Rate Blood Pressure 99/58 L 104/60 Pulse Oximetry 10/08/21 16:05 10/08/21 19:57 10/08/21 20:00 Temperature Pulse Rate 97 Respiratory Rate Blood Pressure 90/68 L Pulse Oximetry 100 10/08/21 21:43 10/09/21 00:00 10/09/21 04:00 Temperature 98.9 F Pulse Rate 68 80 66 Respiratory Rate 16 Blood Pressure 100/57 L Pulse Oximetry 96 10/09/21 05:24 Temperature 97.7 F Pulse
[2021-10-09] MEDS: UMECLIDINIUM BROMIDE 62.5 MCG ELLIPTA 1 PUFF INHALATION (08:11)
[2021-10-09] MEDS: FLUTICASONE/SALMETEROL 115-21 MCG INHALER 1 PUFF 2 PUFF INHALATION ×2 (08:12→20:10)
[2021-10-09] MEDS: MAGNESIUM SULFATE 3GM/D5W100ML 3 GM/100 ML BAG IVPB (08:17)
[2021-10-09 08:18] LABS: Glucose Point of Care 71 mg/dl (65-105)
[2021-10-09] MEDS: PANTOPRAZOLE 40 MG TABLET PO ×2 (08:18→20:04)
[2021-10-09] MEDS: FERROUS SULFATE 324 MG TABLET PO ×2 (08:18→18:20)
[2021-10-09] MEDS: PRAVASTATIN SODIUM 10 MG TABLET PO (08:18)
[2021-10-09] MEDS: POTASSIUM CHLORIDE 20 MEQ PACKET (FOR LIQUID) 40 MEQ PO ×2 (08:18→18:20)
[2021-10-09] MEDS: LIPASE/AMYLASE/PROTEASE 12,000 UNITS CAP 1 CAP PO ×3 (08:18→18:20)
[2021-10-09] MEDS: FUROSEMIDE INJ 40 MG/4 ML VIAL IV PUSH ×2 (08:18→18:20)
[2021-10-09 11:35] LABS: Glucose Point of Care 85 mg/dl (65-105)
[2021-10-09 13:04] LABS: Potassium 3.6 mmol/L (3.4-5.0)
[2021-10-09] MEDS: ALBUMIN HUMAN 25% 25 GM/100 ML 100 ML IVPB (16:47)
[2021-10-09 16:55] LABS: Glucose Point of Care 94 mg/dl (65-105)
[2021-10-09] MEDS: MONTELUKAST SODIUM 10 MG TABLET BY MOUTH (18:20)
[2021-10-09 21:09] LABS: Glucose Point of Care 80 mg/dl (65-105)
[2021-10-10] VITALS (11 sets, daily range): BP systolic 88–101; BP diastolic 56–67; PULSE 70–91; RESP 15–18; TEMP 36.2–36.6; O2SAT 99–100
[2021-10-10] MEDS: ACETAMINOPHEN 325 MG TABLET 650 MG PO (01:49)
[2021-10-10 05:11] LABS: Hematocrit 28.5 % (37.0-47.0); Hemoglobin 9.3 g/dL (12.0-15.0); Mean Corpuscular HGB Conc 32.6 g/dl (32-36); Mean Corpuscular Volume 97.9 fl (80-100); Mean Platelet Volume 10.4 fl (7.4-10.4); Platelet Count Result 266 k/mm3 (150-375); Red Blood Count 2.91 M/mm3 (4.2-5.4); Red Cell Distribution Width 15.9 % (11.5-14.5); White Blood Count 5.6 K/mm3 (4.5-10.0)
[2021-10-10 05:42] LABS: Anion Gap 5 mmol/L (8-16); Blood Urea Nitrogen 6 mg/dL (7-17); Calcium 7.6 mg/dL (8.4-10.2); Carbon Dioxide 34 mmol/L (22-30); Chloride 99 mmol/L (98-107); Estimated CRCL calculation 42 ml/min; Estimated Glomerular Filt Rate > 60; Glucose 65 mg/dL (65-110); Magnesium 1.9 mg/dL (1.6-2.3); Phosphorus 3.7 mg/dL (2.5-4.5); Potassium 3.9 mmol/L (3.4-5.0); Sodium 138 mmol/L (137-145)
[2021-10-10] MEDS: LEVOTHYROXINE SODIUM 75 MCG TABLET PO (05:47)
[2021-10-10] MEDS: UMECLIDINIUM BROMIDE 62.5 MCG ELLIPTA 1 PUFF INHALATION (07:09)
[2021-10-10] MEDS: FLUTICASONE/SALMETEROL 115-21 MCG INHALER 1 PUFF 2 PUFF INHALATION ×2 (07:09→19:34)
[2021-10-10 07:52] LABS: Glucose Point of Care 63 mg/dl (65-105)
[2021-10-10] MEDS: POTASSIUM CHLORIDE 20 MEQ PACKET (FOR LIQUID) 40 MEQ PO (08:12)
[2021-10-10] MEDS: FERROUS SULFATE 324 MG TABLET PO ×2 (08:12→17:39)
[2021-10-10] MEDS: PRAVASTATIN SODIUM 10 MG TABLET PO (08:12)
[2021-10-10] MEDS: PANTOPRAZOLE 40 MG TABLET PO ×2 (08:12→20:03)
[2021-10-10] MEDS: LIPASE/AMYLASE/PROTEASE 12,000 UNITS CAP 1 CAP PO ×3 (08:12→17:39)
[2021-10-10] MEDS: FUROSEMIDE INJ 40 MG/4 ML VIAL IV PUSH ×2 (08:13→17:39)
[2021-10-10 08:49] LABS: Glucose Point of Care 81 mg/dl (65-105)
--- NOTE | 2021-10-10 08:51 | PM.IMPN ---
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 Status: Acute (6) GI bleed: Code(s): K92.2 - Gastrointestinal hemorrhage, unspecified Status: Acute (7) Chronic obstructive pulmonary disease: Code(s): J44.9 - Chronic obstructive pulmonary disease, unspecified Status: Acute (8) Atrial fibrillation: Code(s): I48.91 - Unspecified atrial fibrillation Status: Acute (9) Diabetes 1.5, 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 - Other specified diabetes mellitus without complications Status: Acute (10) UTI (urinary tract infection): Code(s): N39.0 - Urinary tract infection, site not specified Status: Acute (11) Hypoglycemia: Code(s): E16.2 - Hypoglycemia, unspecified Status: Acute Additional Plan 10/05/21 Rocephin for UTI labile BP w vol overload albumin and lasix AGIB ruled out on EGD/scope today cont anticoagulation for afib when cleared by GI pt is rate controlled not on medication for HR per med rec FeSO4- BID w colace ECHO reviewed will re-eval in am am labs 10/06/21 Imodium for diarrhea protein supplements medications reviewed x offending agents , none associated w anasarca cont diuresis w albumin fluid restriction PRBC ordered may need low dose midodrine Is/Os case reviewed w GI , recs appreciated 10/07/21 pt improving has not requested imodium for her diarrhea encouraged to do so cont diuresis 3.7L negative in last 72hrs since documentation started cont fluid restriction cont lasix 40mg BID careful monitoring of BP to keep MAP> 65 10/08/21 diuresis has slowed will add albumin and lasix at higher dose to encourage output as BP has been soft pt overall doing better cont current care anticipate dc in 24-48hrs home w [facility] and outpt GI, heme/onc eval 10/09/21 1.5L negative yesterday BP holding cont diuresis mag and K ordered cont lasix 40mg BID Hgb 8.8 today will cont to trend 10/10/21 pt doing ok still with excess fluid am hypoglycemia pm snack cont to diurese anticipate dc home tomorrow w [facility] Subjective Date/time seen: 10/10/21 08:51 pt doing ok still w excess fluid, am hypoglycemia but denies feeling unwell Exam Narrative: General: chronically ill appearing not in acute distress obese , looks better today HEENT: EOMI. Sclerae anicteric. Neck: Supple. No JVD. Respiratory: no use of accessory muscles no distress symmetric chest rise Cardiovascular: Regular rate and rhythm with S1-S2 Gastrointestinal: Abdomen nondistended Skin: Warm and dry. Extremities: No cyanosis or clubbing. 1+ pitting edema to the knees. 1+ in forearms L>R Neurological: Alert. Cranial nerves 2-12 are grossly intact. No gross focal deficits to casual conversation. Psychiatric: Pleasant and cooperative with normal mood and affect. Objective Data Vital Signs Vital Signs: Vital Signs - 24 hr 10/09/21 12:00 10/09/21 14:00 10/09/21 16:00 Temperature 97.8 F Pulse Rate 89 116 H 72 Respiratory Rate 18 Blood Pressure 90/62 L Pulse Oximetry 100 10/09/21 20:00 10/09/21 21:00 10/10/21 00:00 Temperature 98.0 F Pulse Rate 77 68 70 Respiratory Rate 19 Blood Pressure 101/63 Pulse Oximetry 100 10/10/21 04:00 10/10/21 04:19 Temperature 97.5 F L Pulse Rate 72 79 Respiratory Rate 18 Blood Pressure 101/67 Pulse Oximetry 100 Intake/Output Intake/Output: Intake & Output 10/07/21
[2021-10-10 11:31] LABS: Glucose Point of Care 76 mg/dl (65-105)
--- NOTE | 2021-10-10 13:10 | PCPTNOTE ---
Per Patient, her HR has been getting very high with transfers and her blood sugars are low. Patient stated I'm not feeling well. Patient refused therapy despite therapist education on participation. RN aware.
[2021-10-10] MEDS: MIDODRINE HCL 2.5 MG TABLET PO (14:47)
[2021-10-10] MEDS: ALBUMIN HUMAN 25% 25 GM/100 ML 100 ML IVPB (16:24)
[2021-10-10 16:37] LABS: Glucose Point of Care 74 mg/dl (65-105)
[2021-10-10] MEDS: MONTELUKAST SODIUM 10 MG TABLET BY MOUTH (17:39)
[2021-10-10 21:13] LABS: Glucose Point of Care 94 mg/dl (65-105)
[2021-10-11] VITALS (14 sets, daily range): BP systolic 86–109; BP diastolic 53–67; PULSE 67–115; RESP 14–18; TEMP 36.3–36.7; O2SAT 96–100
[2021-10-11] MEDS: LEVOTHYROXINE SODIUM 75 MCG TABLET PO (05:52)
[2021-10-11 06:06] LABS: Anion Gap 8 mmol/L (8-16); Blood Urea Nitrogen 6 mg/dL (7-17); Calcium 7.7 mg/dL (8.4-10.2); Carbon Dioxide 32 mmol/L (22-30); Chloride 96 mmol/L (98-107); Estimated CRCL calculation 35 ml/min; Estimated Glomerular Filt Rate 49; Glucose 72 mg/dL (65-110); Magnesium 1.9 mg/dL (1.6-2.3); Potassium 3.5 mmol/L (3.4-5.0); Sodium 136 mmol/L (137-145)
--- NOTE | 2021-10-11 07:45 | PM.DS ---
DS: Summary Time Spent with Patient Time attestation: Total time spent providing and/or coordinating discharge services: DS: Data Data Completed and Pending Completed studies during hospitalization: Pending at discharge 10/05/21 11:04 Surgical [PTH] Routine Surgical [PTH] Routine Labs on day of discharge: Labs from last 24 hours 10/11/21 10/10/21 10/10/21 04:59 20:06 16:08 Sodium 136 L Potassium 3.5 Chloride 96 L Carbon Dioxide 32 H Anion Gap 8 BUN 6 L Creatinine 1.10 H Estim Creat Clear Calc 35 Estimated GFR 49 L Glucose 72 POC Capillary Glucose 94 74 Calcium 7.7 L Magnesium 1.9 10/10/21 10/10/21 10/10/21 11:27 08:40 07:48 Sodium Potassium Chloride Carbon Dioxide Anion Gap BUN Creatinine Estim Creat Clear Calc Estimated GFR Glucose POC Capillary Glucose 76 81 63 L Calcium Magnesium Discharge Plan Discharge Attending physician on discharge: Colleen Peralta Consulting providers: Gerber Jacinto ; Marcelo Rodas Discharging Clinician: Colleen Peralta Anticipated Discharge Date/Time: 10/11/21 07:34 Patient Disposition: Home Health Service Activity: as tolerated Diet: regular Discharge Instructions: Per Care Coordination, pt. will discharge home with [facility] for continued PT/OT. Please have D/C RN fax discharge information to . [facility] will contact pt. at time of D/C. Patient Instructions: Antibiotic Form, Dabigatran (By mouth), Pain Management (DC), Removal of a Central Line, PICC, or Midline Catheter (DC), PICC (Peripherally Inserted Central Catheter) (GEN) Stand Alone Forms: General Discharge Information Follow-up/Referrals: Rouse,Josh Lindsay MD [Primary Care Provider] - Gerber Jacinto MD [Physician] - Discharge Medications: Continued multivitamin [Multiple Vitamins] Tablet 1 tablet PO DAILY RF: 0 cholecalciferol (vitamin D3) 25 mcg (1,000 unit) capsule 1,000 unit PO DAILY RF: 0 cyanocobalamin (vitamin B-12) [B-12 DOTS] 500 mcg tablet 500 mcg PO DAILY RF: 0 budesonide-formoterol [Symbicort] 160-4.5 mcg/actuation HFA aerosol inhaler 2 puff inhalation Q12H Qty: 10.2 RF: 12 albuterol sulfate 90 mcg/actuation HFA aerosol inhaler 2 puff INHALATION Q4-6H PRN (Reason: shortness of breath or wheezing) Qty: 8.5 RF: 6 Creon 6,000-19,000 -30,000 unit capsule,delayed release(DR/EC) 2 cap PO TID 30 Days Qty: 180 RF: 5 Pradaxa 150 mg capsule 150 mg PO POST-TRANSFUSION RF: 0 levothyroxine 75 mcg tablet 75 mcg PO DAILY RF: 0 pravastatin 10 mg tablet 10 mg PO DAILY RF: 0 ferrous sulfate 325 mg (65 mg iron) tablet 325 mg PO BID RF: 0 lansoprazole 30 mg Capsule,Delayed Release(Dr/Ec) 30 mg PO DAILY RF: 0 montelukast 10 mg tablet See Rx Instructions .ROUTE .COMPLEX Qty: 90 RF: 3 Spiriva Respimat 1.25 mcg/actuation mist 2 puff inhalation DAILY Qty: 12 RF: 0 Date of admission: 10/05/21 10:25 Primary Care Provider: Nasim,Josh Lindsay Admitting Provider: Óscar Mobley Attending physician on admission: Colleen Peralta Condition: Stable Quality VTE Prophylaxis VTE prophylaxis: mechanical ordered
[2021-10-11 08:16] LABS: Glucose Point of Care 65 mg/dl (65-105)
[2021-10-11 08:31] LABS: Glucose Point of Care 66 mg/dl (65-105)
[2021-10-11] MEDS: LIPASE/AMYLASE/PROTEASE 12,000 UNITS CAP 1 CAP PO ×3 (09:00→20:35)
[2021-10-11] MEDS: PANTOPRAZOLE 40 MG TABLET PO ×2 (09:00→20:35)
[2021-10-11] MEDS: PRAVASTATIN SODIUM 10 MG TABLET PO (09:00)
[2021-10-11] MEDS: FERROUS SULFATE 324 MG TABLET PO ×2 (09:00→20:35)
[2021-10-11] MEDS: UMECLIDINIUM BROMIDE 62.5 MCG ELLIPTA 1 PUFF INHALATION (09:45)
[2021-10-11] MEDS: FLUTICASONE/SALMETEROL 115-21 MCG INHALER 1 PUFF 2 PUFF INHALATION ×2 (09:45→20:10)
[2021-10-11 11:54] LABS: Glucose Point of Care 83 mg/dl (65-105)
[2021-10-11] MEDS: SODIUM CHLORIDE 0.9% IV 250 ML 50 ML IV CONT (13:12)
--- NOTE | 2021-10-11 16:28 | PM.IMPN ---
Progress Note: A&P Assessment and Plan (1) Hypertension: Code(s): I10 - Essential (primary) hypertension Status: Acute Assessment and Plan: Blood pressures have been running soft thus antihypertensives will be held. (2) Hypoalbuminemia: Code(s): E88.09 - Other disorders of plasma-protein metabolism, not elsewhere classified Status: Acute (3) Generalized edema: Code(s): R60.1 - Generalized edema Status: Acute (4) Acute blood loss anemia: Code(s): D62 - Acute posthemorrhagic anemia Status: Acute Assessment and Plan: Hemoglobin and hematocrit will be trended and she will be transfused if indicated. 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 (6) GI bleed: Code(s): K92.2 - Gastrointestinal hemorrhage, unspecified Status: Acute Assessment and Plan: with dark blood and stool with a past week Recurrent history of GI bleed in the past GI has been consulted. Status post bleeding scan which came back 10/04/2021 colonoscopy done in November 2020 per patient [address] with Dr. Candelario and will plan for EGD colonoscopy in the morning (7) Chronic obstructive pulmonary disease: Code(s): J44.9 - Chronic obstructive pulmonary disease, unspecified Status: Acute (8) Atrial fibrillation: Code(s): I48.91 - Unspecified atrial fibrillation Status: Acute Assessment and Plan: Rate controlled. (9) Diabetes 1.5, 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 - Other specified diabetes mellitus without complications Status: Acute (10) UTI (urinary tract infection): Code(s): N39.0 - Urinary tract infection, site not specified Status: Acute (11) Hypoglycemia: Code(s): E16.2 - Hypoglycemia, unspecified Status: Acute Additional Plan 10/05/21 Rocephin for UTI labile BP w vol overload albumin and lasix AGIB ruled out on EGD/scope today cont anticoagulation for afib when cleared by GI pt is rate controlled not on medication for HR per med rec FeSO4- BID w colace ECHO reviewed will re-eval in am am labs 10/06/21 Imodium for diarrhea protein supplements medications reviewed x offending agents , none associated w anasarca cont diuresis w albumin fluid restriction PRBC ordered may need low dose midodrine Is/Os case reviewed w GI , recs appreciated 10/07/21 pt improving has not requested imodium for her diarrhea encouraged to do so cont diuresis 3.7L negative in last 72hrs since documentation started cont fluid restriction cont lasix 40mg BID careful monitoring of BP to keep MAP> 65 10/08/21 diuresis has slowed will add albumin and lasix at higher dose to encourage output as BP has been soft pt overall doing better cont current care anticipate dc in 24-48hrs home w HH and outpt GI, heme/onc eval 10/09/21 1.5L negative yesterday BP holding cont diuresis mag and K ordered cont lasix 40mg BID Hgb 8.8 today will cont to trend 10/10/21 pt doing ok still with excess fluid am hypoglycemia pm snack cont to diurese anticipate dc home tomorrow w [facility] 10/11/21 pt reporting chronic hypoglycemia not seen by endo will order basic hypoglycemic workup slight bump in creatinine dc lasix 250cc fluid am labs Subjective Date/time seen: 10/11/21 16:28 doing ok still w am hypoglycemia Objective Data Vital Signs Vital Signs: Vital Signs - 24 hr 10/10/21 19:35 10/10/21 20:00 10/10/21 20:53 Temperature 97.1 F L Pulse Rate 73 80 71 Respiratory Rate 16 Blood Pressure 93/58 L Pulse Oximetry 99 10/11/21 00:00 10/11/21 04:00 10/11/21 05:50 Temperature 97.6 F Pulse Rate 103 H 74 73 Respiratory Rate 16 Blood Pressure
[2021-10-11 16:34] LABS: Glucose Point of Care 82 mg/dl (65-105)
[2021-10-11 20:19] LABS: Glucose Point of Care 85 mg/dl (65-105)
[2021-10-11] MEDS: MONTELUKAST SODIUM 10 MG TABLET BY MOUTH (20:35)
[2021-10-12] VITALS (11 sets, daily range): BP systolic 94–104; BP diastolic 58–64; PULSE 68–90; RESP 14–20; TEMP 35.8–36.6; O2SAT 96–100
[2021-10-12] MEDS: LEVOTHYROXINE SODIUM 75 MCG TABLET PO (05:36)
[2021-10-12 06:04] LABS: Anion Gap 6 mmol/L (8-16); Blood Urea Nitrogen 8 mg/dL (7-17); Calcium 7.9 mg/dL (8.4-10.2); Carbon Dioxide 31 mmol/L (22-30); Chloride 100 mmol/L (98-107); Estimated CRCL calculation 42 ml/min; Estimated Glomerular Filt Rate > 60; Glucose 73 mg/dL (65-110); Magnesium 1.8 mg/dL (1.6-2.3); Potassium 3.7 mmol/L (3.4-5.0); Sodium 137 mmol/L (137-145)
[2021-10-12 07:04] LABS: Hematocrit 31.4 % (37.0-47.0); Hemoglobin 9.9 g/dL (12.0-15.0); Mean Corpuscular HGB Conc 31.5 g/dl (32-36); Mean Corpuscular Volume 98.4 fl (80-100); Mean Platelet Volume 9.9 fl (7.4-10.4); Platelet Count Result 317 k/mm3 (150-375); Red Blood Count 3.19 M/mm3 (4.2-5.4); White Blood Count 6.5 K/mm3 (4.5-10.0)
[2021-10-12 07:57] LABS: Glucose Point of Care 61 mg/dl (65-105)
[2021-10-12] MEDS: FLUTICASONE/SALMETEROL 115-21 MCG INHALER 1 PUFF 2 PUFF INHALATION ×2 (08:26→20:22)
[2021-10-12] MEDS: UMECLIDINIUM BROMIDE 62.5 MCG ELLIPTA 1 PUFF INHALATION (08:26)
[2021-10-12 08:31] LABS: Glucose Point of Care 70 mg/dl (65-105)
[2021-10-12] MEDS: LIPASE/AMYLASE/PROTEASE 12,000 UNITS CAP 1 CAP PO ×3 (09:26→17:14)
[2021-10-12] MEDS: FERROUS SULFATE 324 MG TABLET PO ×2 (09:26→17:14)
[2021-10-12] MEDS: PANTOPRAZOLE 40 MG TABLET PO ×2 (09:26→20:28)
[2021-10-12] MEDS: PRAVASTATIN SODIUM 10 MG TABLET PO (09:26)
--- NOTE | 2021-10-12 10:54 | PM.IMPN ---
Progress Note: A&P Assessment and Plan (1) Hypertension: Code(s): I10 - Essential (primary) hypertension Status: Acute Assessment and Plan: Bp soft consider midodrine (2) Hypoalbuminemia: Code(s): E88.09 - Other disorders of plasma-protein metabolism, not elsewhere classified Status: Acute Assessment and Plan: Pt seen by milieu counselor, pt is advised to eat more (3) Generalized edema: Code(s): R60.1 - Generalized edema Status: Acute Assessment and Plan: Much improved (4) Acute blood loss anemia: Code(s): D62 - Acute posthemorrhagic anemia Status: Acute Assessment and Plan: Hb is 9 continue to watch (5) Chronic anticoagulation: Code(s): Z79.01 - [facility] (current) use of anticoagulants Status: Acute Assessment and Plan: Pradaxa has been placed on hold given GI bleed and acute blood loss anemia. (6) GI bleed: Code(s): K92.2 - Gastrointestinal hemorrhage, unspecified Status: Acute Assessment and Plan: Pt admitted with GI bleeding with dark blood and stool with a past week Recurrent history of GI bleed in the past GI has been consulted. Status post bleeding scan which came back 10/04/2021 Colonoscopy done in November 2020 per patient. Egd and colonoscopy without signs of bleeding. (7) Chronic obstructive pulmonary disease: Code(s): J44.9 - Chronic obstructive pulmonary disease, unspecified Status: Chronic Assessment and Plan: CHronic and stable (8) Atrial fibrillation: Code(s): I48.91 - Unspecified atrial fibrillation Status: Acute Assessment and Plan: Rate controlled. (9) Diabetes 1.5, 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 - Other specified diabetes mellitus without complications Status: Acute Assessment and Plan: Chronic and stable (10) UTI (urinary tract infection): Code(s): N39.0 - Urinary tract infection, site not specified Status: Acute Assessment and Plan: Sp iv rocephin treatment no culture reported rpt UA (11) Hypoglycemia: Code(s): E16.2 - Hypoglycemia, unspecified Status: Acute Assessment and Plan: Resolved with nutrition (12) Malnutrition: Code(s): E46 - Unspecified protein-calorie malnutrition Status: Acute Assessment and Plan: Pt is malnourished wants to see oncology Additional Plan 10/05/21 Rocephin for UTI labile BP w vol overload albumin and lasix AGIB ruled out on EGD/scope today cont anticoagulation for afib when cleared by GI pt is rate controlled not on medication for HR per med rec FeSO4- BID w colace ECHO reviewed will re-eval in am am labs 10/06/21 Imodium for diarrhea protein supplements medications reviewed x offending agents , none associated w anasarca cont diuresis w albumin fluid restriction PRBC ordered may need low dose midodrine Is/Os case reviewed w GI , recs appreciated 10/07/21 pt improving has not requested imodium for her diarrhea encouraged to do so cont diuresis 3.7L negative in last 72hrs since documentation started cont fluid restriction cont lasix 40mg BID careful monitoring of BP to keep MAP> 65 10/08/21 diuresis has slowed will add albumin and lasix at higher dose to encourage output as BP has been soft pt overall doing better cont current care anticipate dc in 24-48hrs home w [facility] and outpt GI, heme/onc eval 10/09/21 1.5L negative yesterday BP holding cont diuresis mag and K ordered cont lasix 40mg BID Hgb 8.8 today will cont to trend 10/10/21 pt doing ok still with excess fluid am hypoglycemia pm snack cont to diurese anticipate dc home tomorrow w [facility] 10/11/21 pt reporting chronic hypoglycemia not seen by endo will order basic hypoglycemic workup slight bump in creatinine dc lasix 250cc fluid am labs Subjective Date/time seen: 10/12/21 10:54 Interval histo
[2021-10-12 11:46] LABS: Glucose Point of Care 82 mg/dl (65-105)
--- NOTE | 2021-10-12 12:42 | PDONCCN ---
HPI - Date of Consult Date/Time: 10/12/21 12:42 Requesting Physician: Colleen Peralta MD Primary Care Provider: Josh Rouse, - Consult Narrative Reason for consult: Normocytic anemia Narrative: Lady King is a 71 year old female with history of atrial fibrillation, Marques's esophagus with esophagitis along with COPD and type 2 diabetes. She came into the hospital with almost 75 lb weight loss in 6 months duration. She has been feeling quite tired and fatigued. She denies any bleeding but does have some black stool. She is taking oral iron ferrous sulfate 325 mg twice a day. Her primary care doctor order tumor marker for pancreatic cancer CA 19-9 pulse elevated. She denies any previous history of malignancy. She denies any new lung sounds are lymphadenopathy. Her last mammogram was 3 years ago. She denies any history of smoking and drinking. There is no family history of malignancy. CT chest done on October 02 showed anasarca with moderate size pleural effusion, small pericardial effusion and small volume of ascites. EGD from October 05 showed Marques's esophagus with dysplasia with and hiatal hernia. Colonoscopy showed colon polyps with internal hemorrhoids. Pathology from colonoscopy showed no evidence of malignancy. Bleeding scan from October 04 also came back negative. Labs showed hemoglobin of 9.3 with normal MCV. WBC and platelets were normal. Review of Systems - Review of Systems All systems reviewed & are unremarkable except as noted in [facility] and [facility] Medical History: Medical History (Last Updated 10/12/21 @ 11:07 by Nathalia Baltazar MD) Acute on chronic blood loss anemia Anemia Arthritis Asthma Atrial fibrillation Marques's esophagus with esophagitis Chronic anticoagulation Chronic obstructive pulmonary disease Diabetes mellitus Diastolic congestive heart failure Gastroesophageal reflux disease GI bleed Hyperlipidemia Hypertension Hypothyroid Malabsorption Pulmonary HTN Seasonal allergies Surgical History: Surgical History (Last Updated 10/02/21 @ 23:14 by Sue Tyler PA-C) History of appendectomy History of breast biopsy History of cardiac cath History of cataract extraction History of cholecystectomy History of colonoscopy History of esophagogastroduodenoscopy (EGD) History of hysterectomy History of resection of small bowel History of tonsillectomy Postsurgical intestinal bypass or anastomosis status Family History: Family History (Last Reviewed 10/02/21 @ 23:14 by Sue G. Gerling, PA-C) Mother Family history of muscular dystrophy, Onset Age: 45 Family history of cardiovascular disease, Onset Age: 45 Family history of lung disease, Onset Age: 45 Father Acute myocardial infarction, Onset Age: 47 Sibling Family history of renal failure Other Family history of autism - Social History Social History: Social History (Last Updated 10/02/21 @ 23:15 by Sue Tyler PA-C) Alcohol Use: Alcohol intake: never Substance Use: Substance use: never Substance use type: does not use Others: Spiritual care concerns: No Smoking Status: Smoking status: Never smoker Second hand tobacco smoke exposure: Yes Meds Home Medications Medication Instructions Recorded Confirmed Type ferrous sulfate 325 mg PO BID 08/23/19 10/02/21 History lansoprazole 30 mg PO DAILY 08/23/19 10/02/21 History levothyroxine 75 mcg PO DAILY 08/23/19 10/02/21 History pravastatin 10 mg PO DAILY 08/23/19 10/02/21 History cholecalciferol (vitamin D3) 25 1,000 unit PO DAILY 09/25/19 10/02/21 History mcg (1,000 unit) capsule cyanocobalamin (vitamin B-12) 500 500 mcg PO DAILY 09/25/19 10/02/21 History mcg tablet multivitamin 1 tablet PO DAILY 09/25/19 10/02/21 History albuterol sulfate 90 mcg/actuation 2 puff INHALATION Q4-6H PRN #8.5 gm 11/17/20 10/02/21 Rx aerosol inhaler bud
[2021-10-12 14:02] LABS: Iron 70 ug/dL (37-170)
[2021-10-12 14:11] LABS: Percent Iron Saturation 63 % (20-50)
[2021-10-12 14:56] LABS: Folic Acid > 20.0 ng/mL (2.76->20); Vitamin B12 > 1000.0 pg/mL (239-931)
[2021-10-12 16:15] LABS: Glucose Point of Care 92 mg/dl (65-105)
[2021-10-12] MEDS: MONTELUKAST SODIUM 10 MG TABLET BY MOUTH (17:14)
[2021-10-12 20:48] LABS: Glucose Point of Care 101 mg/dl (65-105)
[2021-10-13] VITALS (14 sets, daily range): BP systolic 74–104; BP diastolic 51–70; PULSE 66–120; RESP 14–20; TEMP 36.2–36.9; O2SAT 96–99
[2021-10-13] MEDS: LEVOTHYROXINE SODIUM 75 MCG TABLET PO (06:26)
[2021-10-13 07:49] LABS: Glucose Point of Care 70 mg/dl (65-105)
[2021-10-13] MEDS: PANTOPRAZOLE 40 MG TABLET PO ×2 (08:08→20:02)
[2021-10-13] MEDS: LIPASE/AMYLASE/PROTEASE 12,000 UNITS CAP 1 CAP PO ×3 (08:08→16:21)
[2021-10-13] MEDS: FERROUS SULFATE 324 MG TABLET PO ×2 (08:08→16:20)
[2021-10-13] MEDS: PRAVASTATIN SODIUM 10 MG TABLET PO (08:08)
[2021-10-13] MEDS: FLUTICASONE/SALMETEROL 115-21 MCG INHALER 1 PUFF 2 PUFF INHALATION ×2 (08:58→20:50)
[2021-10-13] MEDS: UMECLIDINIUM BROMIDE 62.5 MCG ELLIPTA 1 PUFF INHALATION (08:59)
[2021-10-13 09:27] LABS: Glucose Point of Care 106 mg/dl (65-105)
[2021-10-13] MEDS: MIDODRINE HCL 2.5 MG TABLET PO ×3 (09:56→16:21)
[2021-10-13 11:37] LABS: Glucose Point of Care 110 mg/dl (65-105)
--- NOTE | 2021-10-13 12:53 | PM.IMPN ---
Progress Note: A&P Assessment and Plan (1) Hypertension: Code(s): I10 - Essential (primary) hypertension Status: Acute Assessment and Plan: Pt is hypotensive Bp soft consider midodrine Pt is tilting add NS Pt has diarrhea refusing Imodium Order stool culture No need for cdiff testing at this time (2) Hypoalbuminemia: Code(s): E88.09 - Other disorders of plasma-protein metabolism, not elsewhere classified Status: Acute Assessment and Plan: Pt seen by classified ad clerk, pt is advised to eat more (3) Generalized edema: Code(s): R60.1 - Generalized edema Status: Acute Assessment and Plan: Much improved (4) Acute blood loss anemia: Code(s): D62 - Acute posthemorrhagic anemia Status: Acute Assessment and Plan: Hb is 9 continue to watch (5) Chronic anticoagulation: Code(s): Z79.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 (6) GI bleed: Code(s): K92.2 - Gastrointestinal hemorrhage, unspecified Status: Acute Assessment and Plan: Pt admitted with GI bleeding with dark blood and stool with a past week Recurrent history of GI bleed in the past GI has been consulted. Status post bleeding scan which came back 10/04/2021 Colonoscopy done in November 2020 per patient. Egd and colonoscopy without signs of bleeding. (7) Chronic obstructive pulmonary disease: Code(s): J44.9 - Chronic obstructive pulmonary disease, unspecified Status: Chronic Assessment and Plan: CHronic and stable (8) Atrial fibrillation: Code(s): I48.91 - Unspecified atrial fibrillation Status: Acute Assessment and Plan: Rate controlled. (9) Diabetes 1.5, 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 - Other specified diabetes mellitus without complications Status: Acute Assessment and Plan: Chronic and stable (10) UTI (urinary tract infection): Code(s): N39.0 - Urinary tract infection, site not specified Status: Acute Assessment and Plan: Sp iv rocephin treatment no culture reported rpt UA (11) Hypoglycemia: Code(s): E16.2 - Hypoglycemia, unspecified Status: Acute Assessment and Plan: Resolved with nutrition (12) Malnutrition: Code(s): E46 - Unspecified protein-calorie malnutrition Status: Acute Assessment and Plan: Pt is malnourished wants to see oncology Additional Plan 10/05/21 Rocephin for UTI labile BP w vol overload albumin and lasix AGIB ruled out on EGD/scope today cont anticoagulation for afib when cleared by GI pt is rate controlled not on medication for HR per med rec FeSO4- BID w colace ECHO reviewed will re-eval in am am labs 10/06/21 Imodium for diarrhea protein supplements medications reviewed x offending agents , none associated w anasarca cont diuresis w albumin fluid restriction PRBC ordered may need low dose midodrine Is/Os case reviewed w GI , recs appreciated 10/07/21 pt improving has not requested imodium for her diarrhea encouraged to do so cont diuresis 3.7L negative in last 72hrs since documentation started cont fluid restriction cont lasix 40mg BID careful monitoring of BP to keep MAP> 65 10/08/21 diuresis has slowed will add albumin and lasix at higher dose to encourage output as BP has been soft pt overall doing better cont current care anticipate dc in 24-48hrs home w [facility] and outpt GI, heme/onc eval 10/09/21 1.5L negative yesterday BP holding cont diuresis mag and K ordered cont lasix 40mg BID Hgb 8.8 today will cont to trend 10/10/21 pt doing ok still with excess fluid am hypoglycemia pm snack cont to diurese anticipate dc home tomorrow w [facility] 10/11/21 pt reporting chronic hypoglycemia not seen by endo will order basic hypoglycemi
[2021-10-13] MEDS: SODIUM CHLORIDE 0.9% IV 1,000 ML 70 ML IV CONT (13:25)
--- NOTE | 2021-10-13 14:02 | PCNFU ---
Nutrition Follow-Up Complete: Unintended Weight loss as related to possible GI bleed as evidenced by greater than 10% weight loss in 6 months. Goal: Adequate Intake of at least 75% of meals/supplements Patient is progressing towards goal. We will continue current goal. Pt current nutrition is regular diet with ensure compact BID. Last recorded weight is 60.7 kg, up from 83 kg on admit. Bowel Motility: +BM reported 10/12 Labs Reviewed:K 3.3,Na 134, Alb 2.1,Hct 29.0,Hgb 9.6 Meds Noted:Lasix, Ferrous Sulfate, Protonix, Synthroid, Protonix, Pravastatin Skin: WNL Additional Notes: Patient remains on a regular diet with ensure compact BID. Oral Intake is 25-75% of meals trays. Diet supplements are providing an additional 220 kcals and 9 gms protein. Agree with diet orders. Monitoring: RD will monitor every 5 days.
[2021-10-13] MEDS: SACCHAROMYCES BOULARDII 250 MG CAPSULE PO (16:20)
[2021-10-13 16:26] LABS: Glucose Point of Care 85 mg/dl (65-105)
[2021-10-13] MEDS: MONTELUKAST SODIUM 10 MG TABLET BY MOUTH (17:07)
[2021-10-13 17:28] LABS: Add Urine Microscopic? YES; Appearance Urine Clear (Clear); Bilirubin Urine Negative (Negative); Blood Urine Negative (Negative); Color Urine Yellow (Yellow); Glucose Urine UA Negative (Negative); Ketones Urine Negative (Negative); Leukocyte Esterase Ur 1+ LEU/UL (Negative); Mucus Urine Rare /lpf; Nitrate Urine Negative (Negative); Protein Urine Negative (Negative); Specific Grav Ur 1.018 (1.001-1.035); Squamous Epithelial Cell Urine Many /hpf (Few); Urobilinogen Urine Negative mg/dL (<2.0)
[2021-10-13 21:22] LABS: Glucose Point of Care 96 mg/dl (65-105)
[2021-10-14] VITALS (15 sets, daily range): BP systolic 89–122; BP diastolic 49–75; PULSE 57–105; RESP 14–21; TEMP 36.3–37.1; O2SAT 97–100
[2021-10-14] MEDS: SODIUM CHLORIDE 0.9% IV 1,000 ML 70 ML IV CONT (02:52)
[2021-10-14] MEDS: LEVOTHYROXINE SODIUM 75 MCG TABLET PO (05:43)
[2021-10-14 05:57] LABS: C-Peptide 2.08 ng/mL (0.80-3.85)
[2021-10-14 07:43] LABS: Glucose Point of Care 71 mg/dl (65-105)
[2021-10-14] MEDS: FLUTICASONE/SALMETEROL 115-21 MCG INHALER 1 PUFF 2 PUFF INHALATION ×2 (08:00→20:05)
[2021-10-14] MEDS: LIPASE/AMYLASE/PROTEASE 12,000 UNITS CAP 1 CAP PO ×3 (08:01→16:30)
[2021-10-14] MEDS: FERROUS SULFATE 324 MG TABLET PO ×2 (08:01→16:30)
[2021-10-14] MEDS: MIDODRINE HCL 2.5 MG TABLET PO ×3 (08:02→16:30)
[2021-10-14] MEDS: PRAVASTATIN SODIUM 10 MG TABLET PO (08:02)
[2021-10-14] MEDS: PANTOPRAZOLE 40 MG TABLET PO ×2 (08:02→20:09)
[2021-10-14] MEDS: SACCHAROMYCES BOULARDII 250 MG CAPSULE PO ×2 (08:02→16:30)
[2021-10-14 08:26] LABS: Anion Gap 4 mmol/L (8-16); Blood Urea Nitrogen 8 mg/dL (7-17); Calcium 6.1 mg/dL (8.4-10.2); Carbon Dioxide 18 mmol/L (22-30); Chloride 117 mmol/L (98-107); Estimated CRCL calculation 61 ml/min; Estimated Glomerular Filt Rate > 60; Glucose 54 mg/dL (65-110); Potassium 3.1 mmol/L (3.4-5.0); Sodium 139 mmol/L (137-145)
[2021-10-14 08:35] LABS: Glucose Point of Care 55 mg/dl (65-105)
[2021-10-14 09:02] LABS: Hematocrit 30.9 % (37.0-47.0); Hemoglobin 9.8 g/dL (12.0-15.0); Mean Corpuscular HGB Conc 31.7 g/dl (32-36); Mean Corpuscular Hemoglobin 30.9 pg (26-34); Mean Corpuscular Volume 97.5 fl (80-100); Mean Platelet Volume 10.1 fl (7.4-10.4); Platelet Count Result 360 k/mm3 (150-375); Red Blood Count 3.17 M/mm3 (4.2-5.4); White Blood Count 6.5 K/mm3 (4.5-10.0)
[2021-10-14 09:04] LABS: Glucose Point of Care 108 mg/dl (65-105)
--- NOTE | 2021-10-14 10:05 | PM.IMPN ---
Progress Note: A&P Assessment and Plan (1) Hypertension: Code(s): I10 - Essential (primary) hypertension Status: Acute Assessment and Plan: Pt is hypotensive Bp soft consider midodrine Pt is tilting add NS Pt has diarrhea refusing Imodium Order stool culture No need for cdiff testing at this time (2) Hypoalbuminemia: Code(s): E88.09 - Other disorders of plasma-protein metabolism, not elsewhere classified Status: Acute Assessment and Plan: Pt seen by tmr teacher, pt is advised to eat more (3) Generalized edema: Code(s): R60.1 - Generalized edema Status: Acute Assessment and Plan: Much improved (4) Acute blood loss anemia: Code(s): D62 - Acute posthemorrhagic anemia Status: Acute Assessment and Plan: Hb is 9 continue to watch (5) Chronic anticoagulation: Code(s): 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 (6) GI bleed: Code(s): K92.2 - Gastrointestinal hemorrhage, unspecified Status: Acute Assessment and Plan: Pt admitted with GI bleeding with dark blood and stool with a past week Recurrent history of GI bleed in the past GI has been consulted. Status post bleeding scan which came back 10/04/2021 Colonoscopy done in November 2020 per patient. Egd and colonoscopy without signs of bleeding. (7) Chronic obstructive pulmonary disease: Code(s): J44.9 - Chronic obstructive pulmonary disease, unspecified Status: Chronic Assessment and Plan: CHronic and stable (8) Atrial fibrillation: Code(s): I48.91 - Unspecified atrial fibrillation Status: Acute Assessment and Plan: Rate controlled. (9) Diabetes 1.5, 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 - Other specified diabetes mellitus without complications Status: Acute Assessment and Plan: Chronic and stable (10) UTI (urinary tract infection): Code(s): N39.0 - Urinary tract infection, site not specified Status: Acute Assessment and Plan: Sp iv rocephin treatment no culture reported rpt UA (11) Hypoglycemia: Code(s): E16.2 - Hypoglycemia, unspecified Status: Acute Assessment and Plan: Resolved with nutrition (12) Malnutrition: Code(s): E46 - Unspecified protein-calorie malnutrition Status: Acute Assessment and Plan: Pt is malnourished wants to see oncology Additional Plan 10/05/21 Rocephin for UTI labile BP w vol overload albumin and lasix AGIB ruled out on EGD/scope today cont anticoagulation for afib when cleared by GI pt is rate controlled not on medication for HR per med rec FeSO4- BID w colace ECHO reviewed will re-eval in am am labs 10/06/21 Imodium for diarrhea protein supplements medications reviewed x offending agents , none associated w anasarca cont diuresis w albumin fluid restriction PRBC ordered may need low dose midodrine Is/Os case reviewed w GI , recs appreciated 10/07/21 pt improving has not requested imodium for her diarrhea encouraged to do so cont diuresis 3.7L negative in last 72hrs since documentation started cont fluid restriction cont lasix 40mg BID careful monitoring of BP to keep MAP> 65 10/08/21 diuresis has slowed will add albumin and lasix at higher dose to encourage output as BP has been soft pt overall doing better cont current care anticipate dc in 24-48hrs home w [facility] and outpt GI, heme/onc eval 10/09/21 1.5L negative yesterday BP holding cont diuresis mag and K ordered cont lasix 40mg BID Hgb 8.8 today will cont to trend 10/10/21 pt doing ok still with excess fluid am hypoglycemia pm snack cont to diurese anticipate dc home tomorrow w [facility] 10/11/21 pt reporting chronic hypoglycemia not seen by endo will order basic hypoglycemi
--- NOTE | 2021-10-14 10:37 | PCOTNOTE ---
Patient performed ADLs consistent with PLOF, skilled OT no longer indicated. Plan to discharge from skilled OT at this time.
--- NOTE | 2021-10-14 11:33 | PC.NURSE ---
On 10/14/21, the student, [Lizzy Gay], provided care and completed [facility] documentation on this patient. I have reviewed the student's documentation and agree with the findings.
[2021-10-14 11:57] LABS: Glucose Point of Care 84 mg/dl (65-105)
[2021-10-14] MEDS: DEXTROSE 5% 1,000 ML 1,000 ML 50 ML IV CONT (12:21)
[2021-10-14 16:27] LABS: Glucose Point of Care 90 mg/dl (65-105)
[2021-10-14] MEDS: MONTELUKAST SODIUM 10 MG TABLET BY MOUTH (16:31)
[2021-10-14 20:04] LABS: Glucose Point of Care 91 mg/dl (65-105)
[2021-10-15] VITALS (10 sets, daily range): BP systolic 89–111; BP diastolic 42–75; PULSE 61–111; RESP 16–22; TEMP 36.1–36.6; O2SAT 97–100
[2021-10-15] MEDS: LEVOTHYROXINE SODIUM 75 MCG TABLET PO (06:18)
[2021-10-15 07:56] LABS: Glucose Point of Care 63 mg/dl (65-105)
--- NOTE | 2021-10-15 08:27 | PM.DS ---
DS: Admitting Diagnosis Discharge Date 10/15/2021 Admitting Diagnosis GI bleed Anemia DS: Discharge Diagnosis Discharge Diagnosis (1) Hypertension: Code(s): I10 - Essential (primary) hypertension Status: Acute Assessment and Plan: Pt is hypotensive Bp soft consider midodrine Pt is tilting add NS Pt has diarrhea refusing Imodium Order stool culture No need for cdiff testing at this time (2) Hypoalbuminemia: Code(s): E88.09 - Other disorders of plasma-protein metabolism, not elsewhere classified Status: Acute Assessment and Plan: Pt seen by gre tutor, pt is advised to eat more (3) Generalized edema: Code(s): R60.1 - Generalized edema Status: Acute Assessment and Plan: Much improved (4) Acute blood loss anemia: Code(s): D62 - Acute posthemorrhagic anemia Status: Acute Assessment and Plan: Hb is 9 continue to watch (5) Chronic anticoagulation: Code(s): Z79.01 - [facility] (current) use of anticoagulants Status: Acute Assessment and Plan: Pradaxa has been placed on hold given GI bleed and acute blood loss anemia. (6) GI bleed: Code(s): K92.2 - Gastrointestinal hemorrhage, unspecified Status: Acute Assessment and Plan: Pt admitted with GI bleeding with dark blood and stool with a past week Recurrent history of GI bleed in the past GI has been consulted. Status post bleeding scan which came back 10/04/2021 Colonoscopy done in November 2020 per patient. Egd and colonoscopy without signs of bleeding. (7) Chronic obstructive pulmonary disease: Code(s): J44.9 - Chronic obstructive pulmonary disease, unspecified Status: Chronic Assessment and Plan: CHronic and stable (8) Atrial fibrillation: Code(s): I48.91 - Unspecified atrial fibrillation Status: Acute Assessment and Plan: Rate controlled. (9) Diabetes 1.5, 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 - Other specified diabetes mellitus without complications Status: Acute Assessment and Plan: Chronic and stable (10) UTI (urinary tract infection): Code(s): N39.0 - Urinary tract infection, site not specified Status: Acute Assessment and Plan: Sp iv rocephin treatment no culture reported rpt UA (11) Hypoglycemia: Code(s): E16.2 - Hypoglycemia, unspecified Status: Acute Assessment and Plan: Resolved with nutrition (12) Malnutrition: Code(s): E46 - Unspecified protein-calorie malnutrition Status: Acute Assessment and Plan: Pt is malnourished wants to see oncology DS: Summary Hospital Course Reason for hospitalization: GI bleed Anemia Hospital Course: Patient is and 71 years old female was admitted complains of having generalized weakness and found to have the stool possible GI bleed. Patient blood pressure was stabilized with IV fluid and anemia was addressed by consulting GI. Patient also have low sugar during the stay in the hospital that was controlled by giving sugar. Patient did not have any other complication during stay in the hospital. Today patient is feeling better so patient discharged home in stable condition. Will repeat CBC as an outpatient. Will monitor sugar as an outpatient. Patient advised to see primary care physician GI specialist of patient next week. Status at Discharge Cognitive/behavioral status at discharge: Stable Functional status at discharge: independent ambulation Overall status at discharge: patient is back to baseline Time Spent with Patient Time attestation: Total time spent providing and/or coordinating discharge services: Time spent: Less than 30 minutes Exam Const: General: cooperative Nutritional Appearance: malnourished, thin, underweight and other (pale) Orientation/consciousness: oriented to person HENMT: Head: normal to inspection Resp: Effort & Inspection: no respira
[2021-10-15] MEDS: LIPASE/AMYLASE/PROTEASE 12,000 UNITS CAP 1 CAP PO ×3 (08:37→16:34)
[2021-10-15] MEDS: FERROUS SULFATE 324 MG TABLET PO ×2 (08:37→16:34)
[2021-10-15] MEDS: SACCHAROMYCES BOULARDII 250 MG CAPSULE PO ×2 (08:38→16:34)
[2021-10-15] MEDS: PRAVASTATIN SODIUM 10 MG TABLET PO (08:38)
[2021-10-15] MEDS: PANTOPRAZOLE 40 MG TABLET PO ×2 (08:38→20:35)
[2021-10-15] MEDS: MIDODRINE HCL 2.5 MG TABLET PO ×3 (08:38→16:34)
[2021-10-15 09:19] LABS: Glucose Point of Care 88 mg/dl (65-105)
[2021-10-15] MEDS: UMECLIDINIUM BROMIDE 62.5 MCG ELLIPTA 1 PUFF INHALATION (09:57)
[2021-10-15] MEDS: FLUTICASONE/SALMETEROL 115-21 MCG INHALER 1 PUFF 2 PUFF INHALATION ×2 (09:57→20:48)
--- NOTE | 2021-10-15 10:08 | PM.IMPN ---
Progress Note: A&P Assessment and Plan (1) Hypertension: Code(s): I10 - Essential (primary) hypertension Status: Acute Assessment and Plan: Pt is hypotensive Bp soft consider midodrine Pt is tilting add NS Pt has diarrhea refusing Imodium Order stool culture No need for cdiff testing at this time (2) Hypoalbuminemia: Code(s): E88.09 - Other disorders of plasma-protein metabolism, not elsewhere classified Status: Acute Assessment and Plan: Pt seen by date pitter, pt is advised to eat more (3) Generalized edema: Code(s): R60.1 - Generalized edema Status: Acute Assessment and Plan: Much improved (4) Acute blood loss anemia: Code(s): D62 - Acute posthemorrhagic anemia Status: Acute Assessment and Plan: Hb is 9 continue to watch (5) Chronic anticoagulation: Code(s): Z79.01 - boot turner (current) use of anticoagulants Status: Acute Assessment and Plan: Pradaxa has been placed on hold given GI bleed and acute blood loss anemia. (6) GI bleed: Code(s): K92.2 - Gastrointestinal hemorrhage, unspecified Status: Acute Assessment and Plan: Pt admitted with GI bleeding with dark blood and stool with a past week Recurrent history of GI bleed in the past GI has been consulted. Status post bleeding scan which came back 10/04/2021 Colonoscopy done in November 2020 per patient. Egd and colonoscopy without signs of bleeding. (7) Chronic obstructive pulmonary disease: Code(s): J44.9 - Chronic obstructive pulmonary disease, unspecified Status: Chronic Assessment and Plan: CHronic and stable (8) Atrial fibrillation: Code(s): I48.91 - Unspecified atrial fibrillation Status: Acute Assessment and Plan: Rate controlled. (9) Diabetes 1.5, 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 - Other specified diabetes mellitus without complications Status: Acute Assessment and Plan: Chronic and stable (10) UTI (urinary tract infection): Code(s): N39.0 - Urinary tract infection, site not specified Status: Acute Assessment and Plan: Sp iv rocephin treatment no culture reported rpt UA (11) Hypoglycemia: Code(s): E16.2 - Hypoglycemia, unspecified Status: Acute Assessment and Plan: Resolved with nutrition (12) Malnutrition: Code(s): E46 - Unspecified protein-calorie malnutrition Status: Acute Assessment and Plan: Pt is malnourished wants to see oncology Additional Plan 10/05/21 Rocephin for UTI labile BP w vol overload albumin and lasix AGIB ruled out on EGD/scope today cont anticoagulation for afib when cleared by GI pt is rate controlled not on medication for HR per med rec FeSO4- BID w colace ECHO reviewed will re-eval in am am labs 10/06/21 Imodium for diarrhea protein supplements medications reviewed x offending agents , none associated w anasarca cont diuresis w albumin fluid restriction PRBC ordered may need low dose midodrine Is/Os case reviewed w GI , recs appreciated 10/07/21 pt improving has not requested imodium for her diarrhea encouraged to do so cont diuresis 3.7L negative in last 72hrs since documentation started cont fluid restriction cont lasix 40mg BID careful monitoring of BP to keep MAP> 65 10/08/21 diuresis has slowed will add albumin and lasix at higher dose to encourage output as BP has been soft pt overall doing better cont current care anticipate dc in 24-48hrs home w [facility] and outpt GI, heme/onc eval 10/09/21 1.5L negative yesterday BP holding cont diuresis mag and K ordered cont lasix 40mg BID Hgb 8.8 today will cont to trend 10/10/21 pt doing ok still with excess fluid am hypoglycemia pm snack cont to diurese anticipate dc home tomorrow w [facility] 10/11/21 pt reporting chronic hypoglycemia not seen by endo will order basic hypoglycemi
--- NOTE | 2021-10-15 11:40 | PC.NURSE ---
After discussion with Care Coordination and Dr. Connell the patient will be staying for today 10/15/2021 with a potential discharge tomorrow. The patient was informed of the information above and due to her concerns about being discharged she is resting in the bed and understood all of the information presented to her in regards to her discharge status.
[2021-10-15 11:53] LABS: Glucose Point of Care 68 mg/dl (65-105)
[2021-10-15] MEDS: DEXTROSE 5% 1,000 ML 1,000 ML 50 ML IV CONT (12:31)
[2021-10-15 13:11] LABS: Glucose Point of Care 97 mg/dl (65-105)
[2021-10-15 16:14] LABS: Glucose Point of Care 94 mg/dl (65-105)
[2021-10-15] MEDS: MONTELUKAST SODIUM 10 MG TABLET BY MOUTH (16:35)
[2021-10-15 20:59] LABS: Glucose Point of Care 108 mg/dl (65-105)
[2021-10-16] MEDS: LEVOTHYROXINE SODIUM 75 MCG TABLET PO (05:48)
[2021-10-16 06:00] VITALS: BP 133/70; PULSE 56; RESP 21; TEMP 36.1; O2SAT 100
[2021-10-16 07:48] LABS: Glucose Point of Care 70 mg/dl (65-105)
[2021-10-16] MEDS: MIDODRINE HCL 2.5 MG TABLET PO ×2 (08:12→12:29)
[2021-10-16] MEDS: PANTOPRAZOLE 40 MG TABLET PO (08:12)
[2021-10-16] MEDS: FERROUS SULFATE 324 MG TABLET PO (08:12)
[2021-10-16] MEDS: SACCHAROMYCES BOULARDII 250 MG CAPSULE PO (08:12)
[2021-10-16] MEDS: LIPASE/AMYLASE/PROTEASE 12,000 UNITS CAP 1 CAP PO ×2 (08:12→12:28)
[2021-10-16] MEDS: PRAVASTATIN SODIUM 10 MG TABLET PO (08:12)
[2021-10-16] MEDS: FLUTICASONE/SALMETEROL 115-21 MCG INHALER 1 PUFF 2 PUFF INHALATION (11:37)
[2021-10-16] MEDS: UMECLIDINIUM BROMIDE 62.5 MCG ELLIPTA 1 PUFF INHALATION (11:37)
[2021-10-16 11:39] VITALS: O2SAT 97
[2021-10-16 11:50] LABS: Glucose Point of Care 70 mg/dl (65-105)
== END 2021-10-16 13:22 | disposition home health service (06) | DRG 378 ==
LOC: ANHED 12:11 → ANH2MED 13:48
PROVIDERS: Family Medicine; Hospitalist; Internal Medicine; Internal Medicine Gastroenterology; Internal Medicine Hematology & Oncology; Physician Assistant; Admitting Provider Internal Medicine; Emergency Provider Emergency Medicine; PCP Internal Medicine; Visit Provider Internal Medicine
PROC: 0DJ08ZZ Inspection of Upper Intestinal Tract, Via Natural or Artificial Opening Endoscopic (ICD-10-PCS; CPT 43235; principal; 2021-10-05 14:45)
DX: K57.31 Diverticulosis of large intestine without perforation or abscess with bleeding (principal); D68.32 Hemorrhagic disorder due to extrinsic circulating anticoagulants; I50.32 Chronic diastolic (congestive) heart failure; D62 Acute posthemorrhagic anemia; N39.0 Urinary tract infection, site not specified; E46 Unspecified protein-calorie malnutrition; K22.719 Barrett's esophagus with dysplasia, unspecified; K44.9 Diaphragmatic hernia without obstruction or gangrene; K63.5 Polyp of colon; K64.8 Other hemorrhoids; Z98.84 Bariatric surgery status; I95.9 Hypotension, unspecified; M19.90 Unspecified osteoarthritis, unspecified site; J44.9 Chronic obstructive pulmonary disease, unspecified; K21.9 Gastro-esophageal reflux disease without esophagitis; E78.5 Hyperlipidemia, unspecified; E03.9 Hypothyroidism, unspecified; I27.20 Pulmonary hypertension, unspecified; I48.0 Paroxysmal atrial fibrillation; Z79.01 Long term (current) use of anticoagulants; Z68.23 Body mass index [BMI] 23.0-23.9, adult; I11.0 Hypertensive heart disease with heart failure; E87.6 Hypokalemia; E83.42 Hypomagnesemia; E88.09 Other disorders of plasma-protein metabolism, not elsewhere classified; R19.7 Diarrhea, unspecified; E13.649 Other specified diabetes mellitus with hypoglycemia without coma; T45.515A Adverse effect of anticoagulants, initial encounter; Y92.9 Unspecified place or not applicable; Z20.822 Contact with and (suspected) exposure to COVID-19
CPT/HCPCS: 36415; 36430; 36569; 71045; 71250; 78278; 80048; 80053; 80061; 80076; 81001; 81050; 82010; 82274; 82533; 82570; 82607; 82652; 82728; 82746; 82948; 83036; 83540; 83550; 83615; 83630; 83690; 83735; 84100; 84132; 84155; 84156; 84165; 84166; 84439; 84443; 84480; 84484; 84681; 85014; 85018; 85025; 85027; 85610; 85730; 86140; 86337; 86850; 86900; 86901; 86920; 87045; 87086; 87088; 87427; 88305; 93306; 93971; 94640; 96361; 96365; 96367; 96375; 97110; 97116; 97161; 97165; 97530; 97535; 99285; A9270; A9560; C1751; C9399; C9803; G0378; J0696; J1940; J2405; J2704; J3430; J3475; J7030; J7050; J7070; J7120; P9016; P9017; P9047; U0003; U0005

== ENCOUNTER 2021-11-25 09:09 | Outpatient (CLI) | payer MEDICARE, SELFPAY ==
--- NOTE | ~2021-11-25 | CT_ITS ---
EXAMINATION: CT abdomen pelvis w con DATE: 11/25/2021 09:41 INDICATION: Other ascites. TECHNIQUE: Computed tomography (CT) of the abdomen and pelvis was performed with 100 mL Omnipaque 350 intravenous contrast. Automated exposure control and iterative reconstruction technique were employe d. The dose-length product was 409.68 mGy-cm. COMPARISON: CT abdomen and pelvis 07/05/2021 FINDINGS: The visualized portions of the lung bases demonstrate moderate-sized right and small left p leural effusions. There is mild atelectasis bilaterally. A calcified right lung nodule is consistent with old granulomatous disease. The heart size is normal. No pericardial effusion. There is a [address] in the liver. Calcifications in the spleen are consistent with old granulomatous disease. There ar e changes of cholecystectomy. The pancreas and adrenal glands are normal. There is cortical thinning of the kidneys. There are cysts in the right kidney measuring up to 6 mm. There are areas of wall thi ckening in the distal colon. Small bowel diverticulosis is noted. There are no pathologically enlarge d lymph nodes. There is a small volume of pelvic ascites. Body wall edema is noted. There is lumbar l evoscoliosis and severe spondylosis. IMPRESSION: 1. Small volume of pelvic ascites. 2. Moderate-sized right and small left pleural effusions. 3. Areas of wall thickening of the distal colon, which may be interstitial edema or colitis. Reviewed, dictated and finalized at location A. IMPRESSION: 1. Small volume of pelvic ascites. 2. Moderate-sized right and small left pleural effusions. 3. Areas of wall thickening of the distal colon, which may be interstitial bree a or colitis.
[2021-11-25 09:35] LABS: Estimated Glomerular Filt Rate 54
== END 2021-11-25 09:10 | disposition home or self-care (01) ==
PROVIDERS: PCP Internal Medicine; Visit Provider Internal Medicine Hematology & Oncology
DX: R18.8 Other ascites (principal); J90 Pleural effusion, not elsewhere classified
CPT/HCPCS: 74177; Q9967

== ENCOUNTER 2021-12-13 02:55 | Outpatient (CLI) | payer MEDICARE, SELFPAY ==
--- NOTE | 2021-12-06 14:20 | PC.NURSE ---
Pre Radiology instructions Report to the Outpatient Waiting Room, entrance under the green pavilion located off [facility], at time _0730 on date _12/13/21 . Procedure Time: __929 . One visitor will be allowed to accompany the patient into the hospital. The visitor will be instructed to remain with patient at all times or leave the building. We will allow the visitor to come back to the postoperative area when patient is ready. You and your visitor will be asked a series of questions to screen for COVID 19 for your protection. A mask is required within the hospital. Pre-procedure COVID Testing Requirements: No COVID Test needed if: (proof is required; if not received patient will have Rapid Test prior to entry)- Patient has received COVID Vaccine at least 14 days prior to procedure date or- Patient has positive COVID test result within last 90 days of procedure date. COVID Test needed if above criteria is not met If not COVID vaccinated a COVID test must be conducted within 72 hours of surgery and patient is asked to isolate self from time of testing until procedure. You will go to the [facility] for your COVID testing. The [facility] is located at the corner of [address] [facility]. You will only be called if COVID results are positive and your surgeon may reschedule your elective procedure date Patients are to have no food or drink 6 hours prior to procedure time Driving will be restricted after the procedure, you must have a person to drive you home. Labs will be drawn in preop area and once reviewed, you will be taken to radiology area for procedure. When the procedure is completed, you will be taken to outpatient where you will be monitored for several hours. You may have one visitor in this area. Other than holding anti-coagulants, patient may take other medication(s) as scheduled. Prior to your appointment date patients are instructed to hold anti-coagulants after discussing with ordering provider to stop. If unable to discontinue anti-coagulants please notify radiologist. No aspirin or warfarin (Coumadin) for 7 days prior to the procedure. No clopidogrel (Plavix), ticagrelor (Brilinta), prasugrel (Effient) or dabigatran (Pradaxa) for 5 days prior to the procedure. No rivaroxaban (Xarelto), apixaban (Eliquis), dipyridamole (Aggrenox or Persantine) or cilostazol (Pletal) for 2 days prior to the procedure. Medications to discontinue per physician: Date to take last dose: Please leave all valuables, including medications, at home the day of procedure. The hospital will not accept responsibility for valuables. Wear comfortable, loose fitting clothing. Follow any additional instructions given to you from ordering provider. Telephone instructions given to ___PATIENT and asked if any additional questions and then verbalized understanding. Patient advised to call scheduling provider office or registration scheduling [phone] if any additional questions.
[2021-12-09 08:11] VITALS: BMI 21.4
--- NOTE | ~2021-12-13 | US_ITS ---
EXAMINATION: US soft tissue chest DATE: 12/13/2021 10:03 INDICATION: Pleural effusion TECHNIQUE: Program Paraprofessional ultrasound imaging of the right hemithorax was performed in anticipation of planned right thoracentesis. COMPARISON: CT dated 10/04/2021 FINDINGS/IMPRESSION: Interval resolution of prior right pleural effusion. Planned thoracentesis was canceled. Reviewed, dictated and finalized at location A.
[2021-12-13 07:46] VITALS: BP 94/49; PULSE 72; RESP 20; TEMP 36.2; O2SAT 99
[2021-12-13 08:04] LABS: Mean Platelet Volume 10.5 fl (7.4-10.4); Platelet Count Result 366 k/mm3 (150-375)
[2021-12-13 08:50] LABS: INR 1.1; Prothrombin Time 13.9 Seconds (11.1-14.7)
--- NOTE | 2021-12-13 10:04 | SUR.PHASEII ---
Patient did not have procedure done due to no fluid present anymore. Patient came back to outpatient room 14 and got dressed about 0955. RN contacted , Cristi, to come back and pick-up patient at hospital entrance 1.
== END 2021-12-13 10:20 | disposition home or self-care (01) ==
PROVIDERS: Radiology Diagnostic Radiology; PCP Internal Medicine; Referring Provider Internal Medicine Hematology & Oncology; Visit Provider Radiology Diagnostic Radiology
DX: J90 Pleural effusion, not elsewhere classified (principal)
CPT/HCPCS: 36415; 76604; 85049; 85610

== ENCOUNTER 2022-01-26 13:01 | Outpatient (CLI) | payer MEDICARE, SELFPAY ==
--- NOTE | 2022-01-26 17:38 | WPDSIXMINUTE ---
Six Minute Walk Procedure Procedure Performed Pulmonary Stress Test (6 min walk) Six Minute Walk Six Minute Walk: This is a 6 minute walk test. The test was performed and interpreted in accordance with the 2014 ERS/ATS task force guidelines. Findings: The patient's resting room air oxygen saturation measured by pulse oximetry was 98% and heart rate was 69 bpm. Patient ambulated for 274 meters and oxygen saturation remained 93 to 98%. Heart rate at the end of the study was 86 bpm. The patient did not qualify for supplemental oxygen at rest or with ambulation. There are no prior studies for comparison.
--- NOTE | 2022-01-26 17:44 | WPDPFTINT ---
PFT Procedure Performed PFT Procedure Performed Spirometry with Pre/Post Bronchodilator Plethysmography (Lung Vol) Diffusing Cap (DLCO) Flow Vol Loop PFT Interpretation This is a pulmonary function test with pre and post-bronchodilator spirometry, plethysmography and diffusing capacity. The test was performed and results interpreted in accordance with the 2019 and 2005 ATS/ERS Task Force guidelines respectively using the Global Lung Function Initiative-2012 reference equations. Patient demonstrated good effort and cooperation. Reproducibility criteria were met. The quality of the pre bronchodilator spirometry maneuver was Grade A and post bronchodilator spirometry maneuver was Grade A. Findings: Spirometry: The contour the inspiratory and expiratory flow tracing are normal. The pre bronchodilator FVC is 2.62, 94% predicted. The pre bronchodilator FEV1 is 1.93, 90% predicted. The pre bronchodilator FEV1: FVC ratio is 74%. The post bronchodilator FVC is 2.75 L, representing a 5% increase. The post bronchodilator FEV1 is 1.99 L, representing a 3% increase. The post bronchodilator FEV1: FVC ratio 72%. Plethysmography: The total lung capacity is 4.38 L, 86% predicted. The functional residual capacity is 2.91 L, 100% predicted. The residual volume is 1.76 L, 78% predicted. Diffusing capacity: The diffusing capacity unadjusted for hemoglobin and carboxyhemoglobin is 15.0, 74% predicted. The diffusing capacity adjusted for alveolar volume is 4.29, 101% predicted. Impression: The spirometry is normal without evidence of an obstructive abnormality. There is no significant improvement after inhaling a single dose of albuterol. The lung volumes are normal. The diffusing capacity is normal. There are no prior studies for comparison
== END 2022-01-26 13:02 | disposition home or self-care (01) ==
LOC: ANHPFT 13:06
PROVIDERS: PCP Internal Medicine; Visit Provider Internal Medicine Pulmonary Disease
DX: J45.909 Unspecified asthma, uncomplicated (principal)
CPT/HCPCS: 94060; 94618; 94726; 94729

== ENCOUNTER → 2022-02-08 12:02 | Outpatient (CLI) | payer MEDICARE, SELFPAY ==
--- NOTE | ~2022-02-08 | MM_ITS ---
EXAMINATION: MM screening [facility] BI w maria del rosario HISTORY: Screening TECHNIQUE: Craniocaudal and mediolateral oblique 3-D tomosynthesis images were obtained and synthetic 2-D images were generated. CAD analysis was submitted and interpreted. COMPARISON: Comparison to multiple prior studies sequentially, with oldest reviewed study dated 01/09. BREAST PARENCHYMAL COMPOSITION: There are scattered areas of fibroglandular density. There has been i nterval increase in density of both breasts, consistent with interval weight loss. FINDINGS: There are benign bilateral breast calcifications. There is no evidence of suspicious mass, calcification, or architectural distortion to suggest malignancy in either breast. There has been no suspicious interval change. IMPRESSION: 1. No mammographic evidence of malignancy. 2. Recommend routine screening mammography in one year. BI-RADS Category 1: Negative Reviewed, dictated and finalized at location A.
--- NOTE | ~2022-02-08 | DEXA_ITS ---
Bone Density Report Name: EDWIN OLIVERA Age: 71 Sex: Female Ethnicity: White Date of : 1950 Indication: postmenopausal; screening for osteoporosis; height loss; asthma or emphysema; hysterectomy; Referring Provider: KORIN, HIRA Lindsay Study: Bone densitometry was performed. Exam Date: February 08, 2022 Accession number: [id number] Bone Density: Region BMD T-score Z-score Classification AP Spine (L1-L4) 0.916 -1.2 1.1 Osteopenia Femoral Neck (Left) 0.605 -2.2 -0.2 Osteopenia Total Hip (Left) 0.711 -1.9 -0.2 Osteopenia Femoral Neck (Right) 0.573 -2.5 -0.5 Osteoporosis Total Hip (Right) 0.660 -2.3 -0.6 Osteopenia Total Hip Mean 0.686 -2.1 -0.4 Osteopenia World Health Organization criteria for BMD impression classify patients as: Normal (T-score at or above -1.0), Osteopenia (T-score between -1.0 and -2.5), or Osteoporosis (T-score at or below -2.5). 10-year Fracture Risk: FRAX not reported because: Some T-score for Spine Total or Hip Total or Femoral Neck at or below -2.5 Clinical Information Provided by Patient: Has used the following medications: Vitamin D, MULT VIT Has the following medical conditions: Asthma or Emphysema, Hysterectomy Patient maximum height was 65.5 Menopause Age: 30 No regular weight bearing exercise Onset of menses at age 11 Number of children 2 Impression: The patient has osteoporosis, based on the Right Femoral Neck T-score. Discussion: INCREASED RISK OF FRACTURE. BONE DENSITY IS UNDESIRABLY LOW AT ONE OR MORE SKELETAL SITES, CONSISTENT WITH POSTMENOPAUSAL OSTEOPOROSIS. This patient's lowest T-score meets the World Health Organization's (WHO) criteria for osteoporosis at one or more sites (T-score -2.5 or below). In untreated patients, the risk of osteoporotic fracture increases approximately two-fold for each 1.0 SD decrease in T-score. Low bone density is not the only risk factor for fracture; also consider factors such as patient's age, frailty or poor health, risk of falling, risk of injury, previous osteoporotic fracture, family history of osteoporosis, cigarette smoking, low body weight, etc. Not everyone with low bone mineral density has osteoporosis; osteomalacia and other metabolic bone disorders should also be considered. Patients who have osteoporosis should be evaluated for specific diseases and conditions (secondary causes) that may cause or contribute to bone loss. The [place] [employer] Endocrinologists (AACE) and National Osteoporosis Foundation (NOF) recommend pharmacologic intervention for all postmenopausal women whose T-score is in this range. The patient should follow a healthful lifestyle (good nutrition with adequate calcium and vitamin D, and appropriate weight-bearing exercise). Follow-Up: Consider a repeat BMD and Vertebral Fracture As
== END ==
PROVIDERS: PCP Internal Medicine; Visit Provider Internal Medicine
DX: Z12.31 Encounter for screening mammogram for malignant neoplasm of breast (principal); M81.0 Age-related osteoporosis without current pathological fracture; M85.88 Other specified disorders of bone density and structure, other site; M85.852 Other specified disorders of bone density and structure, left thigh; M85.851 Other specified disorders of bone density and structure, right thigh
CPT/HCPCS: 77063; 77067; 77080

== ENCOUNTER → 2022-04-07 08:59 | Outpatient (CLI) | payer MEDICARE, SELFPAY ==
--- NOTE | ~2022-04-07 | CT_ITS ---
EXAMINATION: CT abdomen pelvis wo con DATE: 04/07/2022 09:20 INDICATION: Diarrhea, excessive gas, bloating. FINDINGS: The lung bases are clear of infiltrate or consolidation. Occasional calcified pulmonary granulomas. Normal heart size. No pericardial or pleural effusion. Postoperative change of the periumbilical and supraumbilical mid anterior abdominal wall. Body wall e kobi is again noted. Status post cholecystectomy. There are a few hepatic and calcified splenic granulomas consistent with old granulomatous disease. No hepatic, splenic, pancreatic, and adrenal or renal space-occupying mas s lesion is noted on this limited noncontrast examination. No bile duct or pancreatic duct dilatation . No urinary tract calculus or hydroureteronephrosis. The urinary bladder is unremarkable. Status post hysterectomy. Normal caliber of the abdominal aorta. No intraperitoneal or retroperitoneal or pelvic mass lesion or adenopathy or ascites. Numerous diverticula of the ilium are noted. There is a prominent amount of fecal material within the colon. No bowel obstruction or intraperitoneal free air. There is rotatory levoscoliosis and severe degenerative disc disease of the lumbar spine. Bilateral hip osteoarthritis. No suspicious osteolytic or osteoblastic lesions are noted. IMPRESSION: Resolution of bilateral pleural effusions since 11/25/2021; persistent body wall edema No other significant change Reviewed, dictated and finalized at Location A. Reviewed, dictated and finalized at location B. IMPRESSION: Resolution of bilateral pleural effusions since 11/25/2021; persist ent body wall edema No other significant change
== END ==
PROVIDERS: PCP Internal Medicine; Visit Provider Nurse Practitioner
DX: R19.7 Diarrhea, unspecified (principal); J90 Pleural effusion, not elsewhere classified
CPT/HCPCS: 74176

== ENCOUNTER 2022-04-18 13:30 | Outpatient (CLI) | payer MEDICARE, SELFPAY ==
[2022-04-18 14:37] LABS: Basophils Absolute Auto 0.1 K/mm3 (0.0-0.1); Basophils Percent Auto 0.6 % (0.2-1.2); Eosinophils Absolute Auto 0.1 K/mm3 (0-0.3); Hematocrit 38.9 % (37.0-47.0); Hemoglobin 12.2 g/dL (12.0-15.0); Immature Granulocyte Absolute 0.02 K/mm3 (0.00-0.031); Immature Granulocyte Percent A 0.3 % (0-0.5); Lymphocytes Absolute Auto 1.61 K/mm3 (0.9-3.2); Lymphocytes Percent Auto 20.6 % (18.3-44.2); Mean Corpuscular HGB Conc 31.4 g/dl (32-36); Mean Corpuscular Hemoglobin 32.5 pg (26-34); Mean Corpuscular Volume 103.7 fl (80-100); Mean Platelet Volume 10.5 fl (7.4-10.4); Monocytes Absolute Auto 0.5 K/mm3 (0.1-0.6); Monocytes Percent Auto 6.3 % (2.6-8.5); Neutrophils Absolute Auto 5.6 K/mm3 (1.3-6.7); Neutrophils Percent Auto 71.2 % (45.5-73.1); Platelet Count Result 311 k/mm3 (150-375); Red Blood Count 3.75 M/mm3 (4.2-5.4); Red Cell Distribution Width 14.5 % (11.5-14.5); White Blood Count 7.8 K/mm3 (4.5-10.0)
[2022-04-18 14:50] LABS: Blood Urea Nitrogen 23 mg/dL (8-26); Carbon Dioxide 26 mmol/L (22-30); Chloride 104 mmol/L (98-109); Estimated Glomerular Filt Rate > 60; Glucose 75 mg/dL (70-105); Ionized Calcium (POC) 1.04 mmol/L (1.11-1.31); Potassium 3.5 mmol/L (3.5-4.9); Sodium 139 mmol/L (138-146)
[2022-04-18 16:28] LABS: Iron 112 ug/dL (37-170)
[2022-04-18 16:47] LABS: Percent Iron Saturation 47 % (20-50)
[2022-04-18 18:11] LABS: Alanine Aminotransferase 24 U/L (6-35); Albumin Level 3.5 g/dL (3.5-5.1); Alkaline Phosphatase 62 U/L (38-126); Anion Gap 13 mmol/L (8-16); Aspartate Amino Transferase 31 U/L (14-36); Bilirubin,Total 0.7 mg/dL (0.2-1.3); Blood Urea Nitrogen 26 mg/dL (7-17); Calcium 8.8 mg/dL (8.4-10.2); Carbon Dioxide 20 mmol/L (22-30); Chloride 104 mmol/L (98-107); Estimated Glomerular Filt Rate > 60; Glucose 66 mg/dL (65-110); Sodium 137 mmol/L (137-145)
[2022-04-18 19:35] LABS: Folic Acid > 20.0 ng/mL (2.76->20); Vitamin B12 > 1000.0 pg/mL (239-931)
== END 2022-04-18 13:31 | disposition home or self-care (01) ==
PROVIDERS: PCP Internal Medicine; Visit Provider Internal Medicine Hematology & Oncology
DX: D64.9 Anemia, unspecified (principal)
CPT/HCPCS: 36415; 80047; 80053; 82607; 82728; 82746; 83540; 83550; 85025

== ENCOUNTER → 2022-05-04 13:06 | Outpatient (CLI) | payer MEDICARE, SELFPAY ==
--- NOTE | ~2022-05-04 | MR_ITS ---
EXAMINATION: MR lumbar spine wo con DATE: 05/04/2022 13:35 INDICATION: Right-sided low back pain. Lumbar radiculopathy. TECHNIQUE: Magnetic resonance imaging (MRI) of the lumbar spine was performed without intravenous con trast. Sequences included sagittal T2-weighted FSE, sagittal T2-weighted FS FSE, sagittal T1-weighted FSE, and axial T2-weighted FSE. COMPARISON: Lumbar spine MRI 07/08/2020 FINDINGS: There is 19 degrees levoscoliosis of lumbar spine. There is 3 mm anterolisthesis of L3 on L 4 and L4 on L5. There is mild chronic anterior wedging of T11 vertebral body. There are Schmorl's nod es at most levels. There is severely decreased disc height at L1-L2, mildly decreased disc height at L2-L3, and severely decreased disc height from L3-L4 through L5-S1 with endplate remodeling. The dist al spinal cord signal intensity is normal. The conus medullaris is at T12-L1. The following disc leve ls are specifically discussed: L1-L2: The disc is bulging and has an annular fissure. There is moderate right and mild left facet isabel int osteoarthritis. There is mild bilateral neural foraminal stenosis. There is mild central canal st enosis. L2-L3: The disc is bulging and has an annular fissure. There is moderate right and mild left facet isabel int osteoarthritis. There is mild bilateral neural foraminal stenosis. There is mild central canal st enosis. L3-L4: The disc is bulging and has an annular fissure. There is severe bilateral facet joint osteoart hritis. There is moderate right and mild left neural foraminal stenosis. There is mild central canal stenosis. L4-L5: The disc is bulging and has an annular fissure. There is severe bilateral facet joint osteoart hritis. There is mild bilateral neural foraminal stenosis. There is mild central canal stenosis. L5-S1: The disc is bulging and has an annular fissure. There is moderate right and severe left facet joint osteoarthritis. There is mild right and moderate left neural foraminal stenosis. There is mild central canal stenosis. IMPRESSION: 1. Severe lumbar spondylosis, stable from 07/08/2020. Reviewed, dictated and finalized at location A.
== END ==
PROVIDERS: PCP Internal Medicine; Visit Provider Nurse Practitioner Family
DX: M47.26 Other spondylosis with radiculopathy, lumbar region (principal)
CPT/HCPCS: 72148

== ENCOUNTER → 2023-02-17 09:13 | Outpatient (CLI) | payer MEDICARE, SELFPAY ==
--- NOTE | ~2023-02-17 | XR_ITS ---
Right Knee Technique: AP and lateral views were obtained. Clinical History: Pain Findings: No fracture or dislocation is seen. Osseous alignment is anatomic. There is mild spurring a t the lateral joint line and patella. There is subtle chondrocalcinosis of the menisci. No joint effu doug is seen. Impression: Mild degenerative spurring, as above. Chondrocalcinosis of the menisci. Reviewed, dictated and finalized at location M. Impression: Mild degenerative spurring, as above. Chondrocalcinosis of the menisci.
--- NOTE | ~2023-02-17 | XR_ITS ---
Left Knee Technique: AP and lateral views were obtained. Clinical History: Pain Findings: No fracture or dislocation is seen. Osseous alignment is anatomic. Minimal spurring noted a t the patellofemoral and lateral joint line. There is probable subtle chondrocalcinosis of the menisc i. No joint effusion is seen. Impression: Subtle chondrocalcinosis of the menisci. Minimal spurring, as above. Reviewed, dictated and finalized at location M. Impression: Subtle chondrocalcinosis of the menisci. Minimal spurring, as above.
== END ==
PROVIDERS: PCP Internal Medicine; Visit Provider Nurse Practitioner Family
DX: M25.561 Pain in right knee (principal); M25.562 Pain in left knee
CPT/HCPCS: 73560

== ENCOUNTER 2024-05-01 13:46 | Outpatient (CLI) | payer MEDICARE, SELFPAY ==
--- NOTE | ~2024-05-01 | CT_ITS ---
CT of the Abdomen and Pelvis: Indication: Abdominal pain Technique: 2.5 mm axial scans were obtained through the abdomen and pelvis following intravenous adm inistration of 100 cc of Omnipaque 350. Dose reduction technique was used on this scan by utilizing a utomated exposure control and iterative reconstruction technique. The dose-length product (DLP) was 9 01.59 mGy-cm. COMPARISON: 1122 Findings: Scans through the lung bases are unremarkable. The liver, spleen, pancreas, adrenals and kidneys are within normal limits. Cholecystectomy clips are present. No evidence of aortic aneurysm. No lymphadenopathy. No bowel obstruction or bowel wall thickening. There is no evidence to suggest acute appendicitis. Images through the pelvis were performed. Urinary bladder unremarkable. No pelvic mass seen. Status p ost hysterectomy. No ascites. Impression: No significant abnormalities seen. Reviewed, dictated and finalized at [facility]. Impression: No significant abnormalities seen.
[2024-05-01 14:13] LABS: Estimated Glomerular Filt Rate 44
== END 2024-05-01 13:47 | disposition home or self-care (01) ==
LOC: MICIMG 13:47
PROVIDERS: PCP Internal Medicine; Visit Provider Nurse Practitioner Family
DX: R10.9 Unspecified abdominal pain (principal)
CPT/HCPCS: 74177; Q9967

== ENCOUNTER 2024-07-16 14:47 | Outpatient (CLI) | payer MEDICARE, SELFPAY ==
--- NOTE | ~2024-07-16 | US_ITS ---
EXAMINATION: US venous doppler [facility] DATE: 07/16/2024 15:28 INDICATION: Pain and swelling with multiple varicose veins TECHNIQUE: Grayscale ultrasound images without and with compression and Doppler ultrasound images of the bilateral lower extremity veins were obtained. COMPARISON: 06/24/2020 FINDINGS: The visualized portions of right common femoral vein, profunda (deep) femoral vein, femoral vein, pop liteal vein, peroneal veins, posterior tibial veins, and greater saphenous vein outflow are patent. The visualized portions of left common femoral vein, profunda femoral vein, femoral vein, popliteal v ein, peroneal veins, posterior tibial veins, and greater saphenous vein outflow are patent. IMPRESSION: 1. No deep venous thrombosis. Reviewed, dictated and finalized at location A. [employer]
== END 2024-07-16 14:48 | disposition home or self-care (01) ==
PROVIDERS: PCP Internal Medicine; Visit Provider Nurse Practitioner
DX: I83.813 Varicose veins of bilateral lower extremities with pain (principal)
CPT/HCPCS: 93970

== ENCOUNTER 2024-08-07 01:27 | Day surgery (SDC) | payer MEDICARE, SELFPAY ==
--- NOTE | 2024-03-06 12:03 | PC.NURSE ---
Pt having KATHE on 03/20/24 and EGD on 03/21/24. Pt unsure reasoning for KATHE. Request for last office visit and testing faxed to Dr Vazquez.
--- NOTE | 2024-03-12 12:35 | PC.NURSE ---
Spoke with Claudia at Dr. Cruz office and KATHE sched. for 03/20/2024 for L.A.A.O. appendage follow up done on 02/02/2024, pt cannot come off Plavix for 45 days proceeding procedure. Next follow up with Dr. Vazquez is 04/24/2024, after reviewing EMR pt had EGD done 10/05/[address] Candelario note is for EGD in 3 years-so EGD not due until 09/2024. Jeanne in Dr. Candelario office will call patient and inform her.
--- NOTE | 2024-05-09 14:46 | PC.NURSE ---
05/09/2024 Message received from Valve Repairer Dr. Vazquez unless urgent holding Plavix should be put off till 2023, Spoke with Carole Brothers NP and she talk to patient about alternatives until safe to hold Plavix. Pt resched to 08/07/2024 from 05/16/24
[2024-07-31 13:36] VITALS: BMI 32.8
--- NOTE | 2024-08-01 10:32 | PC.NURSE ---
Spoke with PATIENT regarding medication PLAVIX. Pt. verbalizes understanding that the last dose is to be taken on 08/02/2024 and the Endoscopist will instruct them when to restart after the procedure.
[2024-08-07 10:19] VITALS: BP 105/58; PULSE 100; RESP 16; TEMP 36.2; O2SAT 100
[2024-08-07] MEDS: LACTATED RINGERS 1,000 ML 150 ML IV CONT (10:26)
--- NOTE | 2024-08-07 10:43 | P.PNAN_ITS ---
Anes - Initial Pre Proc Eval Procedure: Operation Date: 08/07/24 11:30 Proposed Procedures p Esophagogastroduodenoscopy - Gerber Jacinto MD Date/Time: 08/07/24 10:43 Surgeon: Gerber Jacinto MD Pre Op Diagnosis: Marques's Esophagus without dysplasia Patient Data Age: 74 Gender: F Height: 1.63 m Weight: 87.3 kg Last Vital Signs Temp 36.2 C L 08/07/24 10:19 Pulse 100 08/07/24 10:19 Resp 16 08/07/24 10:19 BP 105/58 L 08/07/24 10:19 Pulse Ox 100 08/07/24 10:19 O2 Del Method Room Air 08/07/24 10:19 Allergies Allergy/AdvReac Type Severity Reaction Status Date / Time No Known Allergies Allergy Verified 08/07/24 10:11 Home Medications ?Medication ?Instructions ?Recorded ?Confirmed ?Type ferrous sulfate 325 mg (65 mg 325 mg PO BID 08/23/19 08/07/24 History iron) tablet lansoprazole 30 mg capsule,delayed 30 mg PO DAILY 08/23/19 08/07/24 History release levothyroxine 75 mcg tablet 75 mcg PO DAILY 08/23/19 08/07/24 History pravastatin 10 mg tablet 10 mg PO DAILY 08/23/19 08/07/24 History cholecalciferol (vitamin D3) 25 1,000 unit PO DAILY 09/25/19 07/31/24 History mcg (1,000 unit) capsule cyanocobalamin (vitamin B-12) 500 500 mcg PO DAILY 09/25/19 08/07/24 History mcg tablet (B-12 DOTS) multivitamin (Multiple Vitamins 1 tablet PO DAILY 09/25/19 08/07/24 History tablet) Lactobacillus 1 cap PO DAILY 12/06/21 08/07/24 History acidophilus-Bifidobac.animalis 2.5 billion cell capsule (Daily Probiotic) furosemide 40 mg tablet 40 mg PO DAILY 12/06/21 08/07/24 History budesonide-formoterol HFA 160 See Rx Instructions .Route 12/02/22 08/07/24 Rx mcg-4.5 mcg/actuation aerosol .COMPLEX #30.6 grams inhaler albuterol sulfate 90 mcg/actuation 2 puff inhalation Q4-6H PRN 07/26/23 12/11/24 Rx aerosol inhaler shortness of breath or wheezing #8.5 grams montelukast 10 mg tablet See Rx Instructions .Route 08/02/23 08/07/24 Rx .COMPLEX #90 tabs clopidogrel 75 mg tablet (Plavix) 75 mg PO DAILY 04/24/24 08/07/24 History empagliflozin 10 mg tablet 10 mg PO DAILY 04/24/24 08/07/24 History (Jardiance) gabapentin 100 mg capsule 100 mg PO TID 04/24/24 08/07/24 History spironolactone 25 mg tablet 25 mg PO DAILY 04/24/24 08/07/24 History famotidine 40 mg tablet See Rx Instructions .Route 05/22/24 08/07/24 Rx .COMPLEX #90 tabs Patient hx anesthesia problems: none Family hx anesthesia problems: none Results Review: All pre-operative results and documents have been reviewed as part of the pre- operative evaluation. [facility] Past Medical History Medical History Barretts esophagus History of colon polyps Chronic diarrhea Abdominal pain Hoarseness of voice Adenomatous colon polyp Malabsorption Acute on chronic blood loss anemia Hypertension Chronic anticoagulation GI bleed Gastroesophageal reflux disease Hyperlipidemia Chronic obstructive pulmonary disease Atrial fibrillation Asthma Diabetes mellitus Marques's esophagus with esophagitis Diastolic congestive heart failure Anemia Hypothyroid Arthritis Pulmonary HTN Seasonal allergies Surgical History Surgical History History of tonsillectomy History of cataract extraction History of breast biopsy History of resection of small bowel History of hysterectomy Postsurgical intestinal bypass or anastomosis status History of esophagogastroduodenoscopy (EGD) History of colonoscopy History of cholecystectomy History of appendectomy History of cardiac cath Family History Family History Mother Family history of muscular dystrophy, Onset Age: 45 Family history of cardiovascular disease, Onset Age: 45 Family history of lung disease, Onset Age: 45 Diabetes mellitus Heart disease Hypertension Thyroid disorder Father Acute myocardial infarction, Onset Age: 47 Heart disease Hypertension Sibling Family history of renal failure Heart disease Hypertension Grandparent Asthma Heart disease Hypertension Cerebrovascular accident Other Family history of autism Social History Social History Social History: Surrogate decision maker: Cristi King (spouse) or Lilly Perea (daughter). Code status: Full code. Smoking status: Never smoker Second hand tobacco smoke exposure: Yes Alcohol intake: never Substance use: never Substance use type: does not use Lack of Transportation: No Lack of Food: Never True Current Housing: I Have Housing Concerned About Future Housing: No Difficulty Paying Gas/Electric Bills: No Difficulty Paying for Meds: No Currently Unemployed: No Education: Associate Degree Difficulty w/ Childcare or Family Care: No Living arrangements: with family Additional living arrangements comments: The patient lives in [place] with her . Occupation/Education: retired Gender identity (if verbalized by the patient): Female Spiritual care concerns: No Anes - Eval Final PreProcedure Day of Procedure 08/07/24 10:43 Patient weight: obese Heart: irregular rhythm Lungs: decreased breath sounds Airway: Mallampati scale class II Neurological: alert and oriented Last oral intake: >/= 8 hours ASA classification: III Emergent: no Anesthetic plan: proceed Anesthesia type and monitoring: general GIVS and standard monitoring Results Review: All pre-operative results and documents have been reviewed as part of the pre- operative evaluation. Informed Consent: The patient's anesthetic plan and its attendant risks and benefits were discussed with the patient/family/POA. Questions were solicited and answers provided to the satisfaction of the patient/family/POA.
--- NOTE | 2024-08-07 11:28 | PM.HPGS ---
History of Present Illness History of Present Illness Consent: Risks, benefits, and alternatives have been discussed and questions answered. Patient agrees to proceed with procedure. Chief complaint: Malone's Esophagus without dysplasia Narrative: Lady King is a 74 year old female with gerd on ppi and pepcid, egd 2021 with short segment malone's, lately with hoarseness and recently saw ent. Also remote history of small bowel surgery as weight loss procedure. Review of Systems Review of Systems: All systems reviewed & are unremarkable except as noted in HPI and below PMFSH Past Medical History Medical History Barretts esophagus History of colon polyps Chronic diarrhea Abdominal pain Hoarseness of voice Adenomatous colon polyp Malabsorption Acute on chronic blood loss anemia Hypertension Chronic anticoagulation GI bleed Gastroesophageal reflux disease Hyperlipidemia Chronic obstructive pulmonary disease Atrial fibrillation Asthma Diabetes mellitus Malone's esophagus with esophagitis Diastolic congestive heart failure Anemia Hypothyroid Arthritis Pulmonary HTN Seasonal allergies Surgical History Surgical History History of tonsillectomy History of cataract extraction History of breast biopsy History of resection of small bowel History of hysterectomy Postsurgical intestinal bypass or anastomosis status History of esophagogastroduodenoscopy (EGD) History of colonoscopy History of cholecystectomy History of appendectomy History of cardiac cath Family History Family History Mother Family history of muscular dystrophy, Onset Age: 45 Family history of cardiovascular disease, Onset Age: 45 Family history of lung disease, Onset Age: 45 Diabetes mellitus Heart disease Hypertension Thyroid disorder Father Acute myocardial infarction, Onset Age: 47 Heart disease Hypertension Sibling Family history of renal failure Heart disease Hypertension Grandparent Asthma Heart disease Hypertension Cerebrovascular accident Other Family history of autism Social History Social History Social History: Surrogate decision maker: Cristi King (spouse) or Lilly Carreonrebekah (daughter). Code status: Full code. Smoking status: Never smoker Second hand tobacco smoke exposure: Yes Alcohol intake: never Substance use: never Substance use type: does not use Lack of Transportation: No Lack of Food: Never True Current Housing: I Have Housing Concerned About Future Housing: No Difficulty Paying Gas/Electric Bills: No Difficulty Paying for Meds: No Currently Unemployed: No Education: Associate Degree Difficulty w/ Childcare or Family Care: No Living arrangements: with family Additional living arrangements comments: The patient lives in [place] with her . Occupation/Education: retired Gender identity (if verbalized by the patient): Female Spiritual care concerns: No Meds Home Medications and Allergies Home Medications ?Medication ?Instructions ?Recorded ?Confirmed ?Type ferrous sulfate 325 mg (65 mg 325 mg PO BID 08/23/19 08/07/24 History iron) tablet lansoprazole 30 mg capsule,delayed 30 mg PO DAILY 08/23/19 08/07/24 History release levothyroxine 75 mcg tablet 75 mcg PO DAILY 08/23/19 08/07/24 History pravastatin 10 mg tablet 10 mg PO DAILY 08/23/19 08/07/24 History cholecalciferol (vitamin D3) 25 1,000 unit PO DAILY 09/25/19 07/31/24 History mcg (1,000 unit) capsule cyanocobalamin (vitamin B-12) 500 500 mcg PO DAILY 09/25/19 08/07/24 History mcg tablet (B-12 DOTS) multivitamin (Multiple Vitamins 1 tablet PO DAILY 09/25/19 08/07/24 History tablet) Lactobacillus 1 cap PO DAILY 12/06/21 08/07/24 History acidophilus-Bifidobac.animalis 2.5 billion cell capsule (Daily Probiotic) furosemide 40 mg tablet 40 mg PO DAILY 12/06/21 08/07/24 History budesonide-formoterol HFA 160 See Rx Instructions .Route 12/02/22 08/07/24 Rx mcg-4.5 mcg/actuation aerosol .COMPLEX #30.6 grams inhaler albuterol sulfate 90 mcg/actuation 2 puff inhalation Q4-6H PRN 03/22/23 08/07/24 Rx aerosol inhaler shortness of breath or wheezing #8.5 grams montelukast 10 mg tablet See Rx Instructions .Route 08/02/23 08/07/24 Rx .COMPLEX #90 tabs clopidogrel 75 mg tablet (Plavix) 75 mg PO DAILY 04/24/24 08/07/24 History empagliflozin 10 mg tablet 10 mg PO DAILY 04/24/24 08/07/24 History (Jardiance) gabapentin 100 mg capsule 100 mg PO TID 04/24/24 08/07/24 History spironolactone 25 mg tablet 25 mg PO DAILY 04/24/24 08/07/24 History famotidine 40 mg tablet See Rx Instructions .Route 05/22/24 08/07/24 Rx .COMPLEX #90 tabs Allergies Allergy/AdvReac Type Severity Reaction Status Date / Time No Known Allergies Allergy Verified 08/07/24 10:11 Vital Signs Vital Signs - 24 hr 08/07/24 10:19 Temperature 97.1 F L Pulse Rate 100 Respiratory Rate 16 Blood Pressure 105/58 L Pulse Oximetry 100 Oxygen Delivery Room Air Exam Const: General: comfortable and no acute distress HENMT: Face/Nose/Sinus: Normal nares present Eyes: General: appearance normal, both eyes and all related structures Neck: Neck: no JVD Resp: Auscultation: clear to auscultation bilaterally Cardio: Rate: regular rate Rhythm: regular rhythm GI: Inspection: non-distended GI Palp: Yes Soft to palpation Skin: General skin exam: normal color Neuro: General: gait normal Speech: normal speech Extrem: General: normal to inspection Psych: Mental Status: mental status grossly normal Assessment and Plan Assessment and plan (1) Malone's esophagus with esophagitis: Code(s): K22.70 - Malone's esophagus without dysplasia; K20.90 - Esophagitis, unspecified without bleeding Status: Acute Assessment and Plan: egd with bx (2) GERD (gastroesophageal reflux disease): Code(s): K21.9 - Gastro-esophageal reflux disease without esophagitis Status: Acute
[2024-08-07 11:42] VITALS: BP 78/64; PULSE 67; RESP 19; O2SAT 100
[2024-08-07 11:52] VITALS: BP 93/72; PULSE 60; RESP 22; O2SAT 98
[2024-08-07 12:02] VITALS: BP 115/68; PULSE 52; RESP 19; O2SAT 19
== END 2024-08-07 12:20 | disposition home or self-care (01) ==
PROVIDERS: PCP Internal Medicine; Visit Provider Internal Medicine Gastroenterology
PROC: 0DJ08ZZ Inspection of Upper Intestinal Tract, Via Natural or Artificial Opening Endoscopic (ICD-10-PCS; CPT 43235; principal; 2024-08-07 11:30)
DX: K22.70 Barrett's esophagus without dysplasia (principal); K29.50 Unspecified chronic gastritis without bleeding; K21.00 Gastro-esophageal reflux disease with esophagitis, without bleeding; I11.0 Hypertensive heart disease with heart failure; I50.30 Unspecified diastolic (congestive) heart failure; E78.5 Hyperlipidemia, unspecified; E11.9 Type 2 diabetes mellitus without complications; D64.9 Anemia, unspecified; E03.9 Hypothyroidism, unspecified; J44.9 Chronic obstructive pulmonary disease, unspecified; D50.0 Iron deficiency anemia secondary to blood loss (chronic); M19.90 Unspecified osteoarthritis, unspecified site; I48.91 Unspecified atrial fibrillation; E66.9 Obesity, unspecified; Z68.33 Body mass index [BMI] 33.0-33.9, adult; Z79.51 Long term (current) use of inhaled steroids; Z79.02 Long term (current) use of antithrombotics/antiplatelets; Z79.84 Long term (current) use of oral hypoglycemic drugs; Z79.01 Long term (current) use of anticoagulants; Z98.890 Other specified postprocedural states; Z90.49 Acquired absence of other specified parts of digestive tract; Z86.0100 Personal history of colon polyps, unspecified; Z86.79 Personal history of other diseases of the circulatory system; Z82.49 Family history of ischemic heart disease and other diseases of the circulatory system
CPT/HCPCS: 43239; 88305; J7120

== ENCOUNTER 2025-02-10 07:20 | Outpatient (CLI) | payer MEDICARE, SELFPAY ==
--- NOTE | ~2025-02-10 | MM_ITS ---
EXAMINATION: MM screening [place] [facility] w [facility]ia [facility] HISTORY: Screening TECHNIQUE: Craniocaudal and mediolateral oblique 3-D tomosynthesis images were obtained and synthetic 2-D images were generated. CAD analysis was submitted and interpreted. COMPARISON: Comparison to multiple prior studies sequentially, with oldest reviewed study dated 01/15. BREAST PARENCHYMAL COMPOSITION: Not Dense: The breasts are almost entirely fatty. FINDINGS: There is no evidence of suspicious mass, calcification, or architectural distortion to sugg est malignancy in either breast. There has been no suspicious interval change. IMPRESSION: 1. No mammographic evidence of malignancy. 2. Recommend routine screening mammography in one year. BI-RADS Category 1: Negative Reviewed, dictated and finalized at location A.
== END 2025-02-10 07:21 | disposition home or self-care (01) ==
PROVIDERS: PCP Internal Medicine; Visit Provider Internal Medicine
DX: Z12.31 Encounter for screening mammogram for malignant neoplasm of breast (principal)
CPT/HCPCS: 77063; 77067

== ENCOUNTER 2025-02-27 07:01 | Outpatient (CLI) | payer MEDICARE, SELFPAY ==
--- NOTE | ~2025-02-27 | MR_ITS ---
MRI of the lumbar spine Clinical History: Radiculopathy Technique: Axial T2-weighted images, and sagittal T1-weighted, T2-weighted, and T2 fat-sat images wer e acquired. COMPARISON: 05/04/2022 Findings: There is no fracture or subluxation of the lumbar spine. Osseous alignment is unchanged fro m prior exam. No suspicious bone marrow signal abnormality seen. At L1-L2, there is advanced degenerative disc 9. There is mild disc bulge with mild facet arthropathy . No central canal stenosis. There is moderate left neural foraminal narrowing. Right neural foramen preserved. At L2-L3, there is moderate degenerative distended with diffuse disc bulge and moderate facet arthrop athy. No central canal stenosis. There is no definite neural foraminal narrowing. At L3-L4, there is severe degenerative distended. There is diffuse disc bulge with advanced facet art hropathy. There is moderate to severe spinal canal stenosis/thecal sac compression. There is severe r ight neural foraminal narrowing. Left neural foramen preserved. At L4-L5, there is advanced degenerative disc narrowing. Diffuse disc bulge and moderate facet arthro merle result in severe spinal canal stenosis/thecal sac compression. There is mild to moderate right neural foraminal narrowing. Left neural foramen preserved. At L5-S1, there is severe degenerative distended. There is mild disc bulge. No spinal canal stenosis. There is severe left neural foraminal narrowing. Right neural foramen preserved. Paravertebral soft tissues are unremarkable. Impression: Advanced degenerative spondylosis, with multilevel spinal canal stenosis and multilevel neural forami nal narrowing. Please see details above. Reviewed, dictated and finalized at location . Impression: Advanced degenerative spondylosis, with multilevel spinal canal stenosis and mu ltilevel neural foraminal narrowing. Please see details above.
== END 2025-02-27 07:02 | disposition home or self-care (01) ==
LOC: MICIMG 07:02
PROVIDERS: PCP Internal Medicine; Visit Provider Nurse Practitioner Family
DX: M47.896 Other spondylosis, lumbar region (principal); M48.061 Spinal stenosis, lumbar region without neurogenic claudication
CPT/HCPCS: 72148

== ENCOUNTER 2025-03-13 02:07 | Day surgery (SDC) | payer MEDICARE, SELFPAY ==
[2025-02-27 11:56] VITALS: BMI 32.1
--- OUTSIDE RECORDS SUMMARY | 2025-03-13 02:11 | XMS_ITS | Encounter Summary ---
Author Organization [facility] Address [address] [place] [id number] Care Team Providers Care Phonograph Needle Tip Maker Name Role Phone Josh Rouse MD Primary Care Provider Josh Rouse MD Primary Care Provider Encounter Details Date Type Department Care Team (Late st Contact Info) Description 09/16/2016 Orders Only [facility] ProviderRl MD [address] [place] [id number] Social History Tobacco Use Types Packs/Day Years Used Date Smoking Tobacco: Never Alcohol Use Standard Drinks/Week Comments No 0 (1 standard drink = 0.6 oz pur e alcohol) Comments Unknown Sex and Gender Information Value Date Recorded Sex Assigned at Not on file Legal Sex Female 12:41 AM BRIGHT [employer]TER Gender Identity Female 06/02/2020 10:02 AM CDT Sexual Orientation Not on file documented as of this encounter Plan of Treatment Not on file documented as of this encounter Procedures Procedure Name Priority Date/Time Associated Diagnosis Comments CARDIOLOGY REPORT 09/16/2016 documented in this encounter Results * CARDIOLOGY REPORT (09/16/2016) Anatomical Region Laterality Modality Other Narrative 09/16/2016 Ordered by an unspecified provider. Historical Provider [facility] STEPHANIE NEWMAN Final Result documented in this encounter Visit Diagnoses Not on filedocumented in this encounter Care Teams Phonograph Needle Tip Maker Relationship Specialty Start Date End Date Josh Rouse MD PCP - General 11/25/16 Josh Rouse MD PCP - General 06/08/11 11/24/16 documented as of this encounter
--- OUTSIDE RECORDS SUMMARY | 2025-03-13 02:11 | XMS_ITS | Clinical Summary ---
Author Organization [facility] [address] Address [address] [place] [address] Care Team Providers Care Piano Accompanist Name Role Phone Josh Rouse MD Primary Care Provider Allergies No known active allergies Medications cyanocobalamin , vitamin B-12, (VITAMIN B-12) 1,000 mcg tablet extended release take as directed 0 06/09/20 11 Active multivitamin tablet tablet Take one by mouth one time per day 0 0 01/04/20 08 Active ergocalciferol (VITAMIN D) 50,000 unit capsule Take 1 capsule (50,000 Units total) by mouth once a week Active albuterol HFA (PROVENTIL HFA,VENTOLIN HFA,PROAIR HFA) 90 mcg/actuation inhaler Inhale 2 puffs every 6 (six) hours as needed for wheezing Active montelukast (SINGULAIR) 10 mg tablet Take 1 tablet (10 mg total) by mouth nightly Active budesonide-for moteroL (SYMBICORT) 160-4.5 mcg/actuation inhaler Inhale 2 puffs 2 (two) times a day Rinse mouth with water after use. Do not swallow. Active pravastatin (PRAVACHOL) 10 mg tablet Take 1 tablet (10 mg total) by mouth daily 90 tablet 3 06/22/20 21 Active furosemide (LASIX) 40 mg tablet furosemide 40 mg tablet TAKE 1 TABLET BY MOUTH EVERY DAY 11/19/19 22 Active gabapentin (NEURONTIN) 100 mg capsule Take 1 capsule (100 mg total) by mouth 3 (three) times a day 06/26/20 Active lansoprazole (PREVACID) 30 mg capsule Take 1 capsule (30 mg total) by mouth daily Active levothyroxine (SYNTHROID) 75 mcg tablet Take 1 tablet (75 mcg total) by mouth property claim rep before breakfast 01/08/20 Active ferrous sulfate 325 mg (65 mg of elemental iron) tablet Take 1 tablet (325 mg total) by mouth 2 (two) times a day 11/18/19 24 Active famotidine (PEPCID) 40 mg tablet Take 1 tablet (40 mg total) by mouth nightly Active aspirin 81 mg enteric coated tabletIndicati ons:Presence of Amulet left atrial appendage closure device Take 1 tablet (81 mg total) by mouth daily 30 tablet 11 02/20/20 25 026 Active spironolactone (ALDACTONE) 25 mg tablet Take 1 tablet (25 mg total) by mouth daily 90 tablet 6 02/20/20 25 026 Active empagliflozin (JARDIANCE) 10 mg tablet Take 1 tablet (10 mg total) by mouth daily 90 tablet 6 02/20/20 25 026 Active spironolactone (ALDACTONE) 25 mg tablet Take 1 tablet (25 mg total) by mouth daily 30 tablet 11 04/24/20 24 025 Discontinued empagliflozin (JARDIANCE) 10 mg tablet Take 1 tablet (10 mg total) by mouth daily 90 tablet 3 08/14/20 24 025 Discontinued aspirin 81 mg enteric coated tabletIndicati ons:Presence of Amulet left atrial appendage closure device Take 1 tablet (81 mg total) by mouth daily 30 tablet 11 08/14/20 24 025 Discontinued lidocaine-pril ocaine (EMLA) creamIndicatio ns:Administrat ion of Local Anesthesia Apply topically once for 1 dose Please bring with you the day of your procedure. 60 g 1 03/04/20 25 025 Active Problems Problem Noted Date Diagnosed Date Heart failure with preserved ejection fraction 1 10/15/2023 Other thrombophilia 08/14/2024 Presence of Amulet left atrial appendage closure device 02/01/2024 A-fib 02/01/2024 Atrial fibrillation 12/20/2023 Mixed hyperlipidemia 04/25/2023 Contraindication to anticoagulation therapy 11/27 At high risk for falls 12/10/2021 History of GI bleed 10/25/2021 Localized edema 10/25/2021 Orthostatic hypotension 10/25/2021 Unintentional weight loss 06/22/2021 History of 2019 novel coronavirus disease (COVID -19) 06/22/2021 Acute upper GI bleed 12/16/2020 Medication side effects 12/16/2020 Chronic fatigue 06/09/2020 LVH (left ventricular hypertrophy) 06/09/2020 Varicose veins of both lower extremities 020 COPD (chronic obstructive pulmonary disease) Acquired hypothyroidism 09/16/2016 Overview (12/01/2016): Hypothyroidism (acquired) Morbid obesity 09/16/2016 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/2016): Obesity, Class II, BMI 35.0-39.9, with comorbidity (see actual BMI) Dizziness 09/16/2016 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/2016): Dizziness Iron deficiency anemia 11/10/2015 Overview (12/01/2016): Iron deficiency anemia, unspecified iron deficiency anemia type Tachycardia-bradycardia 11/10/2015 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/2016): Tachy-brian syndrome Chest wall pain 11/10/2015 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/2016): Chest wall pain Chronic anticoagulation 09/15/2015 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/2016): Chronic anticoagulation Dyspnea on exertion 09/15/2015 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/2016): MEDEIROS (dyspnea on exertion) Persistent atrial fibrillation 09/15/2015 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/2016): Persistent atrial fibrillation Obesity with body mass index 30 or greater 09/15 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/2016): Obesity (BMI 30-39.9) Anemia 02/17/2015 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/2016): Anemia Resolved Problems Problem Noted Date Diagnosed Date Resolved Date Encounter for monitoring sotalol therapy 06/14/2017 03/24/2022 Encounters Date Type Department Care Team Description 03/04/2025 Telephone [facility] Vascular and Vein Surgery at [address] [place] [address] Elisabet Esquivel RDMS 03/03/2025 Telephone [facility] Cardiology [address] [facility] [address] [place] [address] Kyler Macdonald MD 02/25/2025 8:00 AM CDT Ancillary Procedure [facility] Vascular and Vein Surgery at [address] [place] [address] Varicose veins of leg with pain, bilateral 02/19/2025 9:45 AM CDT Office Visit [facility] Cardiology [address] [facility] [address] [place] [address] Kyler Macdonald MD Chronic heart failure with preserved ejection fraction (HCC) (Primary Dx); Persistent atrial fibrillation (HCC); History of GI bleed; Presence of Amulet left atrial appendage closure device; Stage 3a chronic kidney disease (HCC); Varicose veins of leg with pain, bilateral from Last 3 Months Surgical History Surgery Date Site/Laterality Comments CHOLECYSTECTOMY Cholecystectomy APPENDECTOMY 1972 CATARACT EXTRACTION 2012 COLON SURGERY 1972 HYSTERECTOMY 1981 BLADDER REPAIR bladder prolapse after childbirth RECTAL PROLAPSE REPAIR Medical History Medical History Date Comments Hx Other Medical Arrhythmias A. Fib h/o failed CV Hypothyroidism Hypothyroidism Adiposity Obesity GERD (gastroesophageal reflux disease) 2000 Anemia 2015 Arthritis 2000 Asthma 01/26/2015 Osteoporosis 2020 Clotting disorder -2021 Cataract 2010 Diabetes mellitus (HCC) 12/26/2020 Heart disease 2000 Mixed conductive and sensori neural hearing loss 1994 Hyperlipidemia Marques esophagus History of transfusion 2020 Bladder prolapse, female, acquired Rectal prolapse Spinal stenosis Hypertension Family History Medical History Relation Name Comments Developmental delay Daughter Kaylyn King Learning disabilities Daughter Kaylyn King Coronary artery disease Father Itz Joselito t Coronary Artery Disease; Cause of : Coronary Artery Disease Early Father Itz Garcia Arthritis Maternal Grandmother Grandmother Hearing loss Maternal Grandmother Grandmother Heart disease Maternal Grandmother Grandmother Hypertension Maternal Grandmother Grandmother Kidney disease Maternal Grandmother Grandmother Stroke Maternal Grandmother Grandmother Vision loss Maternal Grandmother Grandmother Diabetes Mother Pia Garcia Early Mother Pia Garcia Multiple sclerosis Mother Pia Garcia Mult iple sclerosis; Cause of : Multiple sclerosis Obesity Mother Pia Garcia Relation Name Status Comments Daughter Kaylyn King Father Itz Garcia (Age 47) Maternal Grandmother Grandmother Mother Pia Garcia (Age 45) Social History Tobacco Use Types Packs/Day Years Used Date Smoking Tobacco: Never Passive Smoke Exposure: Past Smokeless Tobacco: Never Tobacco Cessation:Counseling Given: Not Answered Comments:Never Passive Exposure Comments:Mother smoked for years Alcohol Use Standard Drinks/Week Comments No 0 (1 standard drink = 0.6 oz pur e alcohol) AUDIT-C Answer Date Recorded Q1: How often do you have a drink containing alc ohol? Monthly or less 02/01/2024 Q2: How many drinks containi ng alcohol do you have on a typical day when you are drinking? 1 or 2 02/01/2024 Q3: How often do you have si x or more drinks on one occasion? Never 02/01/2024 Personal Safety Answer Date Recorded Have you ever been in or are you currently in a harmful physical or emotional relationship or is someone making you feel afraid or unsafe? 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 Gender Identity Female 06/02/2020 10:02 AM CDT Sexual Orientation Not on file Obstetrics History Last Filed Vital Signs Vital Sign Reading Time Taken Comments Blood Pressure 108/68 02/19/2025 9:39 AM CDT Pulse 57 02/19/2025 9:39 AM CDT Temperature 36.5 C (97.7 F) 03/20/2024 8:04 AM CDT Respiratory Rate 18 02/19/2025 9:39 AM CDT Oxygen Saturation 98% 02/19/2025 9:39 AM CDT Inhaled Oxygen Concentration - - Weight 84.4 kg (186 lb) 02/19/2025 9:39 AM CDT Height 162.6 cm (5' 4) 02/19/2025 9:39 AM CDT Body Mass Index 31.93 02/19/2025 9:39 AM CDT Plan of Treatment Health Maintenance Due Date Last Done Comments Depression Screening 1950 Hepatitis C Screening 1950 Osteoporosis Screening-Bone Density Scan 1950 DTaP/Tdap/Td Vaccine (1 - Tdap) 1959 Hepatitis B Screening 1966 Well Visit 65+ 2013 Zoster Vaccine (2 of 3) 08/12/2016 06/17/2016 Fall Risk Assessment 03/20/2025 03/20/2024 Influenza Vaccine (#1) 2025 , 06/12/2020, 06/08/2019, Additional history exists Pneumococcal vaccine 65+ Completed 017, 06/05/2015, 06/04/2015 Medical Devices Implanted Type Area Account Services Representative Device Identifier Shelf Expiration Date Model / Serial / Lot Kothari Vascular System Closure Repair Femoral Artery Suture Mediated Perclose Prostyle 57921-86 - [id number] Implanted:Qty: 1 on 02/01/2024 by Kyler Macdonald MD at [facility] 10/25/2025 [id number] / / [id number] Kothari Vascular System Closure Repair Femoral Artery Suture Mediated Perclose Prostyle 43229-42 - [id number] Implanted:Qty: 1 on 02/01/2024 by Kyler Macdonald MD at [facility] 10/25/2025 [id number] / / [id number] Kothari Vascular Percutaneous Transcatheter Amplatzer Amulet 22mm [id number] - [id number] Implanted:Qty: 1 on 02/01/2024 by Kyler Macdonald MD at [facility] 12/26/2027 [id number] / / [id number] [facility] Vascade Mvp 6-12fr Venous Closure [id number] - [id number] Implanted:Qty: 1 on 02/01/2024 by Kyler Macdonald MD at [facility] 07/31/2025 [id number] / / [id number] Procedures Procedure Name Priority Date/Time Associated Diagnosis Comments US VENOUS REFLUX BILATERAL Schedule Routine, Read Routine (OP Routine) 02/25/2025 9:07 AM CDT Varicose veins of leg with pain, bilateral from Last 3 Months Results * US Venous Reflux Bilateral (02/25/2025 9:07 AM CDT) Anatomical Region Laterality Modality Vascular Bilateral Ultrasound 02/25/2025 7:53 AM CDT Narrative 02/25/2025 10:07 AM CDT Vascular & Vein Surgery [address] [place] [address]. [place] [address] Lower Extremity Venous Reflux Duplex Report Patient Name: LADY KING C : 1950 (74y 8m) Study Date: 02/25/2025 7:53:45 AM Gender: F Proof Carrier: Location: [facility] Ref Provider: KYLER MACDONALD Quality: Adequate Order Provider: KYLER MACDONALD PROCEDURES: Vascular Report: Lower extremity venous valvular insufficiency or reflux evaluation is performed with rapid cuff inflator. Veins evaluated are sapheno-femoral junction, great saphenous, common femoral, femoral, profunda femoral, popliteal, sapheno-popliteal and small saphenous veins bilaterally. Criteria for superficial vein reflux is retrograde blood flow greater than 0.5 seconds in the standing position. INDICATIONS: R>L varicose veins with discomfort and swelling. HISTORY: HLD. Afib. COPD. COMPARISONS: No change compared to prior study. The previous exam was completed on 07/16/24 @ [facility]: BLE negative DVT. MEASUREMENTS: Right Value Left Value Rt Sapheno-Femoral Junction 8.27 mm Lt Sapheno-Femoral Junction 7.74 mm Rt Great Saphenous Thigh - Proximal 5.69 mm Lt Great Saphenous Thigh - Proximal 4.23 mm Rt Great Saphenous Knee 6.55 mm Lt Great Saphenous Knee 4.17 mm Rt Great Saphenous Calf - Proximal 3.52 mm Lt Great Saphenous Calf - Proximal 3.55 mm Rt Sapheno-Popliteal Junction mm Lt Sapheno-Popliteal Junction 4.70 mm Rt Small Saphenous Proximal 3.69 mm Lt Small Saphenous Proximal 4.84 mm Rt Small Saphenous Mid 2.88 mm Lt Small Saphenous Mid 2.90 mm Rt Anterior Accessory Proximal 5.24 mm Lt Anterior Accessory Proximal 3.15 mm Rt Anterior Accessory Mid mm Lt Anterior Accessory Mid mm Rt CFV Reflux Time 1.74 sec Lt CFV Reflux Time 0.00 sec Rt SFJ Reflux Time 3.24 sec Lt SFJ Reflux Time 4.48 sec Rt GSV Thigh Reflux Time 5.21 sec Lt GSV Thigh Reflux Time 0.00 sec Rt FV Mid Reflux Time 0.00 sec Lt FV Mid Reflux Time 0.00 sec Rt GSV Knee Reflux Time 6.65 sec Lt GSV Knee Reflux Time 0.00 sec Rt GSV Calf Prx Reflux 0.59 sec Lt GSV Calf Prx Reflux 0.51 sec Rt Popliteal Reflux Time 0.00 sec Lt Popliteal Reflux Time 0.00 sec Rt SSV Prx Reflux 0.00 sec Lt SPJ Reflux Time 0.00 sec Rt SSV Mid Reflux 0.37 sec Lt SSV Prx Reflux 0.00 sec Rt AAGSV Reflux Time 4.29 sec Lt SSV Mid Reflux 0.00 sec Lt AAGSV Reflux Time 0.00 sec Right Value Left Value FINDINGS: Patient positioning: Reflux testing is performed in steep reverse Trendelenburg position. Right: The common femoral, femoral, popliteal, and calf veins were evaluated with compression maneuvers. No evidence of deep vein thrombus by duplex. No evidence of superficial vein thrombus on the right. On the right venous reflux noted in sapheno-femoral junction, common femoral vein, proximal great saphenous vein, anterior accessory branch of GSV, great saphenous vein at the knee and great saphenous vein below the knee (or calf). Seafood Team Member vein noted at distal calf measuring 2.8 mm with 0.49 seconds of reflux. Low origin of anterior accessory saphenous vein, tortuous proximally. Left: The common femoral, femoral, popliteal, and calf veins were evaluated with compression maneuvers. No evidence of deep vein thrombus by duplex. No evidence of superficial vein thrombus on the left. On the left venous reflux noted in sapheno-femoral junction and great saphenous vein below the knee (or calf). CONCLUSIONS: Right GSV: Hemodynamically significant reflux in the right saphenofemoral junction, great saphenous vein in the thigh, great saphenous vein at the knee and great saphenous vein in the calf. Left GSV: Hemodynamically significant reflux in the left saphenofemoral junction and great saphenous vein in the calf. ATTESTATION: I have reviewed and interpreted the pertinent images and measurements of this study. I attest to the conclusions in the final report that is provided above. Electronically Signed By: Lane Chen MD 02/25/2025 9:29:53 AM CDT Procedure Note Lane Chen MD - 02/25/2025 Vascular & Vein Surgery [address] [place] [address] Lower Extremity Venous Reflux Duplex Report Patient Name: LADY KING C : 1950 (74y 8m) Study Date: 02/25/2025 7:53:45 AM Gender: F Proof Carrier: Location: [facility] Ref Provider: KYLER MACDONALD Quality: Adequate Order Provider: KYLER MACDONALD PROCEDURES: Vascular Report: Lower extremity venous valvular insufficiency or reflux evaluation isperformed with rapid cuff inflator. Veins evaluated are sapheno-femoral junction, great saphenous, commonfemoral, femoral, profunda femoral, popliteal, sapheno-popliteal and small saphenous veinsbilaterally. Criteria for superficial vein reflux is retrograde blood flow greater than0.5 seconds in the standing position. INDICATIONS: R>L varicose veins with discomfort and swelling. HISTORY: HLD. Afib. COPD. COMPARISONS: No change compared to prior study. The previous exam was completed on 07/16/24 @ [facility]: BLE negativeDVT. MEASUREMENTS: Right Value Left Value Rt Sapheno-Femoral Junction 8.27 mm Lt Sapheno-Femoral Junction 7.74 mm Rt Great Saphenous Thigh - Proximal 5.69 mm Lt Great Saphenous Thigh -Proximal 4.23 mm Rt Great Saphenous Knee 6.55 mm Lt Great Saphenous Knee 4.17 mm Rt Great Saphenous Calf - Proximal 3.52 mm Lt Great Saphenous Calf -Proximal 3.55 mm Rt Sapheno-Popliteal Junction mm Lt Sapheno-Popliteal Junction 4.70 mm Rt Small Saphenous Proximal 3.69 mm Lt Small Saphenous Proximal 4.84 mm Rt Small Saphenous Mid 2.88 mm Lt Small Saphenous Mid 2.90 mm Rt Anterior Accessory Proximal 5.24 mm Lt Anterior Accessory Proximal 3.15mm Rt Anterior Accessory Mid mm Lt Anterior Accessory Mid mm Rt CFV Reflux Time 1.74 sec Lt CFV Reflux Time 0.00 sec Rt SFJ Reflux Time 3.24 sec Lt SFJ Reflux Time 4.48 sec Rt GSV Thigh Reflux Time 5.21 sec Lt GSV Thigh Reflux Time 0.00 sec Rt FV Mid Reflux Time 0.00 sec Lt FV Mid Reflux Time 0.00 sec Rt GSV Knee Reflux Time 6.65 sec Lt GSV Knee Reflux Time 0.00 sec Rt GSV Calf Prx Reflux 0.59 sec Lt GSV Calf Prx Reflux 0.51 sec Rt Popliteal Reflux Time 0.00 sec Lt Popliteal Reflux Time 0.00 sec Rt SSV Prx Reflux 0.00 sec Lt SPJ Reflux Time 0.00 sec Rt SSV Mid Reflux 0.37 sec Lt SSV Prx Reflux 0.00 sec Rt AAGSV Reflux Time 4.29 sec Lt SSV Mid Reflux 0.00 sec Lt AAGSV Reflux Time 0.00 sec Right Value Left Value FINDINGS: Patient positioning: Reflux testing is performed in steep reverse Trendelenburg position. Right: The common femoral, femoral, popliteal, and calf veins were evaluated withcompression maneuvers. No evidence of deep vein thrombus by duplex. No evidence ofsuperficial vein thrombus on the right. On the right venous reflux noted in sapheno- femoraljunction, common femoral vein, proximal great saphenous vein, anterior accessorybranch of GSV, great saphenous vein at the knee and great saphenous vein below the knee(or calf). Seafood Team Member vein noted at distal calf measuring 2.8 mm with 0.49 seconds ofreflux. Low origin of anterior accessory saphenous vein, tortuous proximally. Left: The common femoral, femoral, popliteal, and calf veins were evaluated withcompression maneuvers. No evidence of deep vein thrombus by duplex. No evidence ofsuperficial vein thrombus on the left. On the left venous reflux noted in sapheno-femoraljunction and great saphenous vein below the knee (or calf). CONCLUSIONS: Right GSV: Hemodynamically significant reflux in the right saphenofemoraljunction, great saphenous vein in the thigh, great saphenous vein at the knee and greatsaphenous vein in the calf. Left GSV: Hemodynamically significant reflux in the left saphenofemoraljunction and great saphenous vein in the calf. ATTESTATION: I have reviewed and interpreted the pertinent images and measurements ofthis study. I attest to the conclusions in the final report that is provided above. Electronically Signed By: Lane Chen MD 02/25/2025 9:29:53 AM CDT Kyler Macdonald MD [facility] PROCEDURES Final Result from Last 3 Months Insurance [facility] MED[facility] Address: [facility] [id number] [place] [phone] [facility] MED[facility] Care Teams Piano Accompanist Relationship Specialty Start Date End Date Josh Rouse MD PCP - General 11/25/16
--- OUTSIDE RECORDS SUMMARY | 2025-03-13 02:11 | XMS_ITS | Referral Summary ---
Author Organization [address] Address [address] [place] [address] Care Team Providers Care Cutter Operator Name Role Phone Josh Rouse MD Primary Care Provider Encounters Date Type Department Care Team Description 03/04/2025 Telephone [facility] Vascular and Vein Surgery at [address] [place] [phone] Elisabet Esquivel RDMS 03/03/2025 Telephone [facility] Cardiology [address] [facility] [address] [place] [address] Kyler Macdonald MD 02/25/2025 8:00 AM CDT Ancillary Procedure [facility] Vascular and Vein Surgery at [address] [place] [address] Varicose veins of leg with pain, bilateral 02/19/2025 9:45 AM CDT Office Visit [facility] Cardiology [address] [place] [address] [address] [place] [phone] Kyler Macdonald MD Chronic heart failure with preserved ejection fraction (HCC) (Primary Dx); Persistent atrial fibrillation (HCC); History of GI bleed; Presence of Amulet left atrial appendage closure device; Stage 3a chronic kidney disease (HCC); Varicose veins of leg with pain, bilateral from Last 3 Months Allergies No known active allergies Medications cyanocobalamin [...] mouth 3 (three) times a day 06/26/20 23 Active lansoprazole (PREVACID) 30 mg capsule Take 1 capsule (30 mg total) by mouth daily Active levothyroxine (SYNTHROID) 75 mcg tablet Take 1 tablet (75 mcg total) by 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 01/08/20 24 Active ferrous sulfate 325 mg (65 mg [...] Encounter for monitoring sotalol therapy 06/14/2017 03/24/2022 Social History Tobacco Use Types Packs/Day Years [...] on file 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 10/25/2025 [id number] / / [id number] Kothari Vascular System Closure Repair Femoral Artery Suture Mediated Perclose Prostyle 75437-57 - [id number] Implanted:Qty: 1 on 02/01/2024 by Kyler Macdonald MD at [facility] 10/25/2025 [id number] / / [id number] [place] [facility] Percutaneous Transcatheter Amplatzer Amulet 22mm [id number] - [id number] Implanted:Qty: 1 on 02/01/2024 by Kyler Macdonald MD at [facility] 12/26/2027 [id number] / / [id number] [employer] Vascade Mvp 6-12fr Venous Closure [id number] - [id number] Implanted:Qty: 1 on 02/01/2024 by Kyler Macdonald MD at [facility] 07/31/2025 [id number] / / [id number] Procedures Procedure Name Priority Date/Time Associated [...] 10:07 AM CDT Vascular & Vein Surgery [address] [place] [address] Lower Extremity Venous Reflux Duplex Report Patient Name: LADY KING C : 1950 (74y 8m) Study Date: 02/25/2025 7:53:45 AM Gender: F Mva Reactor Operator: Location: [facility] Ref Provider: KYLER MACDONALD Quality: [...] The previous exam was completed on 07/16/24 Carlos Manuel Clements: BLE negative DVT. MEASUREMENTS: Right Value Left [...] saphenous vein below the knee (or calf). Die Casting Machine Setter vein noted at distal calf measuring 2.8 [...] MD - 02/25/2025 Vascular & Vein Surgery [address] [place] [id number] Lower Extremity Venous Reflux Duplex Report Patient Name: LADY KING C : 1950 (74y 8m) Study Date: 02/25/2025 7:53:45 AM Gender: F Mva Reactor Operator: PRATIK Location: [facility] Ref Provider: KYLER MACDONALD Quality: [...] great saphenous vein below the knee(or calf). Die Casting Machine Setter vein noted at distal calf measuring 2.8 [...] 02/25/2025 9:29:53 AM CDT Kyler Macdonald MD IMG PROCEDURES Final Result from Last 3 Months Insurance T MEDICARE T MEDICARE AET MEDICARE Care Teams Cutter Operator Relationship Specialty Start Date End Date Josh Rouse MD PCP - General 11/25/16
--- OUTSIDE RECORDS SUMMARY | 2025-03-13 02:11 | XMS_ITS | Data Portability ---
Author Organization [facility], Main Office Address [address] [place] [address] Assessment No assessment recorded. Plan of Treatment Reminders Order Date Submit Date Provider Last Modified By Organization Details Last Modified Time Details Appointments None recorded. Lab magnesium, serum or plasma 2024 025 [facility], [address], [place], [address], 5 15:51:30 vitamin B12, serum 2024 025 [email or web address] [facility], [address], [place], [address], 5 15:51:31 TSH, ultra-sensi tive, serum 2024 025 [facility], [address], [place], [address], 5 15:51:31 unlisted lab - T4, free 2024 025 [facility], [address], [place], [address], 5 15:51:32 lipid panel, serum 2024 025 [facility], [address], [place], [address], 5 15:51:31 lipid panel, serum 2024 025 [email or web address] [facility], [address], [place], [address], 5 15:51:31 CMP, serum or plasma 2024 025 [email or web address] [facility], [address], [place], [address], 5 15:51:31 CBC w/ auto diff 2024 025 [email or web address] [facility], [address], [place], [address], 5 15:51:31 lipid panel, serum 2024 025 [place], [address], [place], [address], 03:07:37 CMP, serum or plasma 2024 025 [facility], [address], [place], [address], 5 03:07:36 CBC w/ auto diff 2024 025 [place] [facility], [address], [place], [address], 03:07:34 unlisted lab - T4, free 2024 025 [facility], [address], [place], [address], 5 03:07:39 TSH, ultra-sensi tive, serum 2024 025 [place] [facility], [address], [place], [address], 03:07:38 vitamin B12, serum 2023 024 [facility], [address], [place], [address], 4 07:22:15 magnesium, serum or plasma 2023 024 [email or web address] [facility], [address], [place], [address], 4 15:22:37 lipid panel, serum 2023 024 [facility], [address], [place], [address], 4 07:22:15 TSH, ultra-sensi tive, serum 2023 [facility] [facility], [address], [place], [address], 4 07:33:04 unlisted lab - T4, free 2023 024 [email or web address] [facility], [address], [place], [address], 4 15:22:37 TSH, serum or plasma 2023 024 [email or web address] [facility], [address], [place], [address], 4 15:01:57 T4, free, serum 2023 024 [facility], [address], [place], [address], 4 15:01:57 lipid panel, serum 2023 024 [email or web address] [facility], [address], [place], [address], 4 15:01:56 CMP, serum or plasma 2023 024 [facility], [address], [place], [address], 4 15:01:57 CBC w/ auto diff 2023 024 [email or web address] [facility], [address], [place], [address], 4 15:01:57 magnesium, serum or plasma 2022 023 [email or web address] [facility], [address], [place], [address], 3 17:35:06 vitamin B12, serum 2022 023 [email or web address] [facility], [address], [place], [address], 3 17:35:06 TSH, ultra-sensi tive, serum 2022 023 [email or web address] [facility], [address], [place], [address], 3 17:35:06 unlisted lab - T4, free 2022 023 [email or web address] [facility], [address], [place], [address], 3 17:35:06 lipid panel, serum 2022 023 [email or web address] [facility], [address], [place], [address], 3 17:35:05 CMP, serum or plasma 2022 023 [email or web address] [facility], [address], [place], [address], 3 17:35:05 CBC w/ auto diff 2022 023 [email or web address] [facility], [address], [place], [address], 3 17:35:06 HbA1c (hemoglobin A1c), blood 2022 023 [facility], [address], [place], [address], 3 17:35:06 Referral None recorded. Procedures None recorded. Surgeries None recorded. Imaging None recorded. Medication Orders cefdinir 250 mg/5 mL oral suspension [address]/[id number], [address] [place], [address], 5 17:01:15 methylpredn isolone 4 mg tablets in a dose pack [address]/[facility] [id number], [address] [place], [address], 5 17:01:26 Patient TargetsNo targets recorded. Patient Instructions Encounter Date Encounter Id Patient Instructions Last Modified By Organization Details Last Modified Time 04/28/2023 [id number] Follow-up paroxysmal atrial fibrillation -hyperlipidemia-hyp othyroidism -GERD -obesity class one. Plan to check blood work CBC, CMP lipid, thyroid, hemoglobin A1c B12 and magnesium level. Continue on current Rx follow-up in four months. Portions of the record may have been created with voice recognition software. Occasional wrong-word or wgavf-m-ujhr substitutions may have occurred due to the inherent limitations of voice recognition software. Read the chart carefully and recognize, using context, where substitutions have occurred. [email or web address] Not available 04/28/2023 15:29:03 12/05/2023 [id number] Acute bronchitis , paroxysmal atrial fibrillation, hyperlipidemia, hypothyroidism. Check blood work in the form of CBC, CMP, lipid, thyroid. Will switch to some cefdinir for the cough and congestion. Also cover with a Medrol Dosepak. Follow-up in several weeks on 12/22/2023 Keep Appt: Mon 01:30 PM Trino Portions of the record may have been created with voice recognition software. Occasional wrong-word or rfkms-t-nccl substitutions may have occurred due to the inherent limitations of voice recognition software. Read the chart carefully and recognize, using context, where substitutions have occurred. [email or web address] Not available 12/05/2023 17:00:24 04/25/2024 [id number] dementia rating scale-2* [email or web address] Not available 04/25/2024 15:14:56 alcohol misuse* [email or web address] Not available 04/25/2024 15:14:56 depression screening* Not available 04/25/2024 15:14:56 multi-dimensiona l health assessment questionnaire* [email or web address] Not available 04/25/2024 15:14:56 Personalized Hea lth Plan and Screening Recommendations Advance Directives - Do you have one? Yes Advance Directives - Do we have your advance directive on file in your health record? No, please bring in a copy at your earliest convenience Primary Prevention/Interven tion (prevents or decreases the chance of common diseases from occurring) Smoking Risk: Non Smoker Alcohol Misuse Screening: Negative Weight: Overweight try to lose 10% of your body weight Physical activity: Need more exercise/physical activity Nutrition: Average Eat heart healthy diet Fall Risk (screened today): Intermediate Recommend regular use of cane or walker Vaccines Pneumococcal: No further needed Influenza: Your next one in the fall of this year Chronic Disease Risks Stroke: Intermediate Risk Active diagnosis, Continue current treatment plan Heart Attack: Intermediate Risk Active diagnosis, Continue current treatment plan Clogging of the Arteries: Intermediate Risk Active diagnosis, Continue current treatment plan Diabetes: Low Risk I have no recommendations Secondary Prevention/Interven tion (detects treatable diseases before they may cause symptoms, disability, or ) Breast Cancer Screening with mammogram: Recommended today Cervical/Uterine/Ov matt Cancer Screening: No screening necessary Osteoporosis Screening: Recommended today Date Screening Last Performed: Colon Cancer Screening: Colonoscopy due 2024 Date Screening Last Performed: ___2021__ Eye Disease Screening: Your next exam in: goes yearly Dementia Risk: Low I have no recommendations Depression Screening: Negative I have no recommendations [email or web address] Not available 04/25/2024 14:57:02 Medicare [facility] risk assessment stable. Follow-up for hyperlipidemia, hypothyroidism, paroxysmal atrial fibrillation, GERD as well as obesity class two. Is getting blood work performed by Cardiology. Will add a lipid panel, thyroid, B12 and magnesium level. Continue on current Rx. Follow-up in four months. Next Appointment: 4 Months Approximate Date: 08/23/2024 Portions of the record may have been created with voice recognition software. Occasional wrong-word or ldxqs-d-qfau substitutions may have occurred due to the inherent limitations of voice recognition software. Read the chart carefully and recognize, using context, where substitutions have occurred. [email or web address] Not available 04/25/2024 15:14:27 09/05/2024 [id number] Follow-up for paroxysmal atrial fibrillation, chronic obstructive lung disease, hypothyroidism, obesity class two and hyperlipidemia all clinically stable. Will check blood work consisting of CBC, CMP, lipid, thyroid. Continue on current Rx. Follow-up in five months Follow Up: 5 Months Approximate Date: 02/02/2025 Portions of the record may have been created with voice recognition software. Occasional wrong-word or ouyqi-o-ywhb substitutions may have occurred due to the inherent limitations of voice recognition software. Read the chart carefully and recognize, using context, where substitutions have occurred. Created: Hira Rouse M.D. 09.05.2024 04:12 PM [email or web address] Not available 09/05/2024 17:12:58 02/13/2025 [id number] Chronic obstruct yadira lung disease, GERD, hyperlipidemia hypothyroidism all clinically stable. Will check some blood work including a CBC, CMP, lipid, thyroid as well as B12 and and magnesium level. Continue on current Rx. Does need a bone density scan cetera. Follow-up in four months Additional Orders - Directives - Recommendations 1. DEXA Scan 2. Colonoscopy Three year follow-up Follow Up: 4 Months Approximate Date: 06/13/2025 Portions of record are template driven. When necessary additional context will be provided. Additionally some portions have been created with voice recognition software. Occasional wrong-word or ruway-l-ftcl substitutions may have occurred due to the inherent limitations of voice recognition software. Read the chart carefully and recognize, using context, where substitutions may have occurred. Created: Hira Rouse M.D. 02.13.2025 03:52 PM [email or web address] Not available 02/13/2025 16:52:33 Reason for Referral None Reported. Results Created Date Observation Date Name Description Value Unit Range Abnormal Flag Note LastModifiedBy Organization Detail LastModifiedTime 09/09/1909/09/2024 CBC WITH DIFFE RENTI AL/PL ATELE T WBC 9.1 x10e3 /uL 3.4-10 .8 normal Not Available [facility] ([facility]) [address] [place], [address], 09/10/2024 03:07:34 09/09/19 25 09/09/2024 CBC WITH DIFFE RENTI AL/PL ATELE T RBC 5.16 x10e6 /uL 3.77-5 .28 normal Not Available [facility] ([facility]) [address] [place], [address], 09/10/2024 03:07:34 09/09/19 25 09/09/2024 CBC WITH DIFFE RENTI AL/PL ATELE T hemoglobin 16.0 g/dL 11.1-1 5.9 above high normal Not Available [facility] ([facility]) [address] [place], [address], 09/10/2024 03:07:34 09/09/19 25 09/09/2024 CBC WITH DIFFE RENTI AL/PL ATELE T hematocrit 49.3 % 34.0-4 6.6 above high normal Not Available [facility] ([facility]) [address] [place], [address], 09/10/2024 03:07:34 09/09/19 25 09/09/2024 CBC WITH DIFFE RENTI AL/PL ATELE T MCV 96 fL 79-97 normal Not Available [facility] ([facility]) [address] [place], [address], 09/10/2024 03:07:34 09/09/19 25 09/09/2024 CBC WITH DIFFE RENTI AL/PL ATELE T MCH 31.0 pg 26.6-3 3.0 normal Not Available [facility] ([facility]) [address] [facility], [place], [address], 09/10/2024 03:07:34 09/09/19 25 09/09/2024 CBC WITH DIFFE RENTI AL/PL ATELE T MCHC 32.5 g/dL 31.5-3 5.7 normal Not Available [facility] ([facility]) [address] [facility], [place], [address], 09/10/2024 03:07:34 09/09/19 25 09/09/2024 CBC WITH DIFFE RENTI AL/PL ATELE T RDW 12.3 % 11.7-1 5.4 Not Available [facility] ([facility]) [address] [facility], [place], [address], 09/10/2024 03:07:34 09/09/19 25 09/09/2024 CBC WITH DIFFE RENTI AL/PL ATELE T platelets 303 x10e3 /uL 150-45 0 normal Not Available [facility] ([facility]) [address] [facility], [place], [address], 09/10/2024 03:07:34 09/09/19 25 09/09/2024 CBC WITH DIFFE RENTI AL/PL ATELE T neutrophils 68 % not estab. normal Not Available [facility] ([facility]) [address] [facility], [place], [address], 09/10/2024 03:07:34 09/09/19 25 09/09/2024 CBC WITH DIFFE RENTI AL/PL ATELE T lymphs 21 % not estab. normal Not Available [facility] ([facility]) [address] [facility], [place], [address], 09/10/2024 03:07:34 09/09/19 25 09/09/2024 CBC WITH DIFFE RENTI AL/PL ATELE T monocytes 8 % not estab. normal Not Available [facility] ([facility]) [address] [place], [address], 09/10/2024 03:07:34 09/09/19 25 09/09/2024 CBC WITH DIFFE RENTI AL/PL ATELE T eos 2 % not estab. normal Not Available [facility] ([facility]) [address] [facility], [place], [address], 09/10/2024 03:07:34 09/09/19 25 09/09/2024 CBC WITH DIFFE RENTI AL/PL ATELE T basos 1 % not estab. normal Not Available [facility] ([facility]) [address] [facility], [place], [address], 09/10/2024 03:07:34 09/09/19 25 09/09/2024 CBC WITH DIFFE RENTI AL/PL ATELE T immature cells MEDIA ASSISTANT Not Available [facility] ([facility]) [address] [place], [address], 09/10/2024 03:07:34 09/09/19 25 09/09/2024 CBC WITH DIFFE RENTI AL/PL ATELE T neutrophils (absolute) 6.2 x10e3 /uL 1.4-7. 0 normal Not Available [facility] ([facility]) [address] [place], [address], 09/10/2024 03:07:34 09/09/19 25 09/09/2024 CBC WITH DIFFE RENTI AL/PL ATELE T lymphs (absolute) 1.9 x10e3 /uL 0.7-3. 1 normal Not Available [facility] ([facility]) [address] [place], [address], 09/10/2024 03:07:34 09/09/19 25 09/09/2024 CBC WITH DIFFE RENTI AL/PL ATELE T monocytes(ab solute) 0.7 x10e3 /uL 0.1-0. 9 normal Not Available [facility] ([facility]) [address] [facility], [place], [address], 09/10/2024 03:07:34 09/09/19 25 09/09/2024 CBC WITH DIFFE RENTI AL/PL ATELE T eos (absolute) 0.1 x10e3 /uL 0.0-0. 4 normal Not Available [facility] ([facility]) [address] [facility], [place], [address], 09/10/2024 03:07:34 09/09/19 25 09/09/2024 CBC WITH DIFFE RENTI AL/PL ATELE T baso (absolute) 0.1 x10e3 /uL 0.0-0. 2 normal Not Available [facility] ([facility]) [address] [facility], [place], [address], 09/10/2024 03:07:34 09/09/19 25 09/09/2024 CBC WITH DIFFE RENTI AL/PL ATELE T immature granulocytes 0 % not estab. Not Available [facility] ([facility]) [address] [facility], [place], [address], 09/10/2024 03:07:34 09/09/19 25 09/09/2024 CBC WITH DIFFE RENTI AL/PL ATELE T immature grans (abs) 0.0 x10e3 /uL 0.0-0. 1 Not Available [facility] ([facility]) [address] [facility], [place], [address], 09/10/2024 03:07:34 09/09/19 25 09/09/2024 CBC WITH DIFFE RENTI AL/PL ATELE T NRBC MEDIA ASSISTANT Not Available [facility] ([facility]) [address] [facility], [place], [address], 09/10/2024 03:07:34 09/09/19 25 09/09/2024 CBC WITH DIFFE RENTI AL/PL BEAR [facility] hemat[facility] comments: MEDIA ASSISTANT Not Available [facility] ([facility]) [address] [place], [address], 09/10/2024 03:07:34 09/09/19 25 09/10/2024 COMP. METAB OLIC PANEL (14) glucose 96 mg/dL 70-99 normal Not Available [facility] ([facility]) [address] [place], [address], 09/10/2024 03:07:36 09/09/19 25 09/10/2024 COMP. METAB OLIC PANEL (14) BUN 22 mg/dL 8-27 normal Not Available [facility] ([facility]) [address] [place], [address], 09/10/2024 03:07:36 09/09/19 25 09/10/2024 COMP. METAB OLIC PANEL (14) creatinine 1.03 mg/dL 0.57-1 .00 above high normal Not Available [facility] ([facility]) [address] [place], [address], 09/10/2024 03:07:36 09/09/19 25 09/10/2024 COMP. METAB OLIC PANEL (14) eGFR 56 mL/mi n/1.7 3 >59 below low normal Not Available [facility] ([facility]) [address] [place], [address], 09/10/2024 03:07:36 09/09/19 25 09/10/2024 COMP. METAB OLIC PANEL (14) BUN/creatini ne ratio 21 12-28 normal Not Available [facility] ([facility]) [address] [place], [address], 09/10/2024 03:07:36 09/09/19 25 09/10/2024 COMP. METAB OLIC PANEL (14) sodium 144 mmol/ L 134-14 4 normal Not Available [facility] ([facility]) [address] [facility], [place], [address], 09/10/2024 03:07:36 09/09/19 25 09/10/2024 COMP. METAB OLIC PANEL (14) potassium 3.6 mmol/ L 3.5-5. 2 normal Not Available [facility] ([facility]) [address] [place], [address], 09/10/2024 03:07:36 09/09/19 25 09/10/2024 COMP. METAB OLIC PANEL (14) chloride 105 mmol/ L 96-106 normal Not Available [facility] ([facility]) [address] [place], [address], 09/10/2024 03:07:36 09/09/19 25 09/10/2024 COMP. METAB OLIC PANEL (14) carbon dioxide, total 25 mmol/ L 20-29 normal Not Available [facility] ([facility]) [address] [place], [address], 09/10/2024 03:07:36 09/09/19 25 09/10/2024 COMP. METAB OLIC PANEL (14) calcium 9.2 mg/dL 8.7-10 .3 normal Not Available [facility] ([facility]) [address] [place], [address], 09/10/2024 03:07:36 09/09/19 25 09/10/2024 COMP. METAB OLIC PANEL (14) protein, total 6.4 g/dL 6.0-8. 5 normal Not Available [facility] ([facility]) [address] [place], [address], 09/10/2024 03:07:36 09/09/19 25 09/10/2024 COMP. METAB OLIC PANEL (14) albumin 4.0 g/dL 3.8-4. 8 normal Not Available [facility] ([facility]) [address] [place], [address], 09/10/2024 03:07:36 09/09/19 25 09/10/2024 COMP. METAB OLIC PANEL (14) globulin, total 2.4 g/dL 1.5-4. 5 Not Available [facility] ([facility]) [address] [facility], [place], [address], 09/10/2024 03:07:36 09/09/19 25 09/10/2024 COMP. METAB OLIC PANEL (14) bilirubin, total 0.5 mg/dL 0.0-1. 2 normal Not Available [facility] ([facility]) [address] [place], [address], 09/10/2024 03:07:36 09/09/19 25 09/10/2024 COMP. METAB OLIC PANEL (14) alkaline phosphatase 112 IU/L 44-121 normal Not Available [facility] ([facility]) [address] [place], [address], 09/10/2024 03:07:36 09/09/19 25 09/10/2024 COMP. METAB OLIC PANEL (14) AST (SGOT) 16 IU/L 0-40 normal Not Available [facility] ([facility]) [address] [facility], [place], [address], 09/10/2024 03:07:36 09/09/19 25 09/10/2024 COMP. METAB OLIC PANEL (14) ALT (SGPT) 17 IU/L 0-32 normal Not Available [facility] ([facility]) [address] [facility] [place], [address], 09/10/2024 03:07:36 09/09/19 25 09/10/2024 LIPID PANEL cholesterol, total 168 mg/dL 100-19 9 normal Not Available [facility] ([facility]) [address] [facility] [place], [address], 09/10/2024 03:07:37 09/09/19 25 09/10/2024 LIPID PANEL triglyceride s 169 mg/dL 0-149 above high normal Not Available [facility] ([facility]) [address] [place], [address], 09/10/2024 03:07:37 09/09/19 25 09/10/2024 LIPID PANEL HDL cholesterol 54 mg/dL >39 normal Not Available [facility] ([facility]) [address] [place], [address], 09/10/2024 03:07:37 09/09/19 25 09/10/2024 LIPID PANEL VLDL cholesterol roxanne 29 mg/dL 5-40 Not Available [facility] ([facility]) [address] [place], [address], 09/10/2024 03:07:37 09/09/19 25 09/10/2024 LIPID PANEL LDL chol calc ([facility]) 85 mg/dL 0-99 Not Available [facility] ([facility]) [address] [place], [address], 09/10/2024 03:07:37 09/09/1909/10/2024 LIPID PANEL LDL calc comment: MEDIA ASSISTANT Not Available [facility] ([facility]) [address] [place], [address], 09/10/2024 03:07:37 09/09/1909/10/2024 TSH TSH 2.850 uIU/m L 0.450- 4.500 normal Not Available [facility] ([facility]) [address] [place], [address], 09/10/2024 03:07:38 09/09/1909/10/2024 T4, FREE T4,free(dire ct) 1.26 NG/dL 0.82-1 .77 normal Not Available [facility] ([facility]) [address] [place], [address], 09/10/2024 03:07:39 12/05/19 24 XR, chest , 2 view [facility] [address] [facility] [place] [address] Patien t Name: YOUNG OLIVERA Access ion #: [id number] Sex: F : 1949 7 Dictat ed By: Mendoza Skaggs Attend ing Physic mick: RICKIE ROUSE CE Orderi ng Physic mick: RICKIE ROUSE CE Exam Date: 2023 09:48 AM Exam Name: XR CHEST 2V Admitt ing Diagno sis(es ): XR CHEST 2V CLINIC AL HISTOR Y: cough COMPAR CLIFF: None TECHNI QUE: Fronta l and latera l view of the chest was obtain ed FINDIN GS: Lines and Tubes: None Lungs: No focal consol idatio n. Pleura : No effusi on. No pneumo thorax . Cardio medias tinal contou rs: Unrema rkable Bones: No acute osseou s abnorm ality. IMPRES DESTINEE: No acute cardio pulmon gely diseas e. Electr onical ly Signed by: Mendoza Skaggs at 2023 11:16: 08 AM Page [address] (Imaging) [address] [facility] [place], [address], 12/05/2023 12:19:18 05/01/20 24 05/01/2024 CT, abdom en + pelvi s, w/o contr ast No observ ation record ed. [address] [facility] [address], [place], [address], 05/01/2024 16:48:13 07/17/20 24 07/16/2024 US, doppl er, venou s No observ ation record ed. [place] [address] Not Available 2023 07:07:19 02/11/20 25 02/10/2025 MAMMO , scree vaishali, bilat eral No observ ation record ed. [address] [facility] [address], [place], [address], 02/10/2025 10:10:26 02/12/2002/10/2025 MAMMO , scree vaishali, bilat eral No observ ation record ed. [address] [facility] [address], [place], [address], 02/11/2025 10:11:36 02/28/20 25 02/27/2025 MRI, lumba r spine , w/o contr ast No observ ation record ed. [address] [facility] [address], [place], [address], 02/27/2025 12:24:50 Result Notes Documentation Provider Name and Address Organization Details Recorded Time Xr, Chest, 2 View : [facility] [address] [place] [address] Patient Name: LADY OLIVERA Sex: F : 1950 Dictated By: Mendoza Skaggs Attending Physician: HIRA ROUSE Ordering Physician: HIRA ROUSE Exam Date: 12/05/2023 09:48 AM Exam Name: XR CHEST 2V Admitting Diagnosis(es): XR CHEST 2V CLINICAL HISTORY: cough COMPARISON: None TECHNIQUE: Frontal and lateral view of the chest was obtained FINDINGS: Lines and Tubes: None Lungs: No focal consolidation. Pleura: No effusion. No pneumothorax. Cardiomediastinal contours: Unremarkable Bones: No acute osseous abnormality. IMPRESSION: No acute cardiopulmonary disease. Page 1 Hira Rouse MD [address] [place] [address], [address], [facility] [employer] 12/05/2023 12:19:18 Problems Name Problem SNOMED Code Status Onset Date Resolution Date Notes Provider Name and Address Organization Details Recorded Time Edema of lower extremity 601064523 Active 2021 Not Available [facility] 3 10:19:12 Renewal of prescript ion Active 2021 Not Available [facility] 3 10:19:12 Chronic obstructi ve pulmonary disease 14099323 Active 2017 Not Available [facility] 3 10:19:13 Acute sinusitis 78134961 Active 2021 Not Available [facility] 3 10:19:13 Intestina l malabsorp tion 944438015 Active 2020 Not Available [facility] 3 10:19:13 Gastroeso phageal reflux disease 996152033 Active Not Available [facility] 3 10:19:13 Dyspnea 276705875 Completed 201602/20/2018 Not Available [facility] 3 12:54:54 Hypoglyce braeden 132155994 Active 2021 Not Available [facility] 3 10:19:13 Hypothyro idism 14617935 Active Not Available [facility] 3 10:19:13 Low blood pressure 83532946 Active 2021 Not Available [facility] 3 10:19:13 Atrial fibrillat ion 52655368 Active Not Available [facility] 3 10:19:13 Hypocalce braeden 8430069 Active 2021 Not Available [facility] 3 10:19:13 Hyperlipi demia 91185164 Active 2016 Not Available [facility] 3 10:19:13 Diarrhea 81411462 Active 2021 Not Available [facility] 3 10:19:13 Iron deficienc y anemia 11871213 Active 2017 Not Available [facility] 3 10:19:13 Cough 94210391 Active 2023 CH[place] [facility] 4 17:29:15 Leukocyto sis 210836649 Active 2023 [place] [facility] 12:54:22 Obese class II [id number] 4105 Active 2023 Hira Rouse MD [address] [facility], [facility] [address], [place], [address] , [facility] 15:09:33 Problem Notes None recorded. Procedures Surgical History Date Name Laterality Status Provider Name and Address Organization Details Recorded Time 04/25/20 24 Medicare Wellness CPT Code, subsequent completed Aleyda Romeo RN [facility] 04/25/2024 14:51:08 12/21/19 23 Medicare Wellness CPT Code, subsequent completed Aleyda Romeo RN [facility] 12/20/2022 15:52:21 09/09/19 21 Date of Last Colonoscopy completed Not Available [facility] 10/26/2022 12:52:15 tonsillectomy completed Not Available [facility] 10/26/2022 12:52:15 Hysterectomy completed Not Available [facility] 10/26/2022 12:52:15 Imaging Results None recorded. Procedure Notes None recorded. Medical Equipment None Reported. Medications Name Sig Start Date Stop Date Status Note LastModified by Organization Details LastModified Time amoxicillin 500 mg capsule TAKE 1 CAPSULE BY MOUTH THREE TIMES A DAY FOR 10 DAYS active Not Available Not Available No t Available furosemide 40 mg tablet TAKE 1 TABLET BY MOUTH EVERY DAY active Not Available Not Available No t Available metformin 500 mg tablet TAKE 1 TABLET BY MOUTH TWICE A DAY active Not Available Not Available No t Available azithromyci n 250 mg tablet TAKE 2 TABLETS (500 MG) BY ORAL ROUTE ONCE DAILY FOR 1 DAY THEN 1 TABLET (250 MG) BY ORAL ROUTE ONCE DAILY FOR 4 DAYS 02/13 completed Not Available Not Available Not Available benzonatate 200 mg capsule Take 1 capsule 3 times a day by oral route. 02/13 completed Not Available Not Available Not Available sotalol 80 mg tablet half tablet twice a day 01/01 completed Not Available Not Available Not Available atovaquone 250 mg-proguani l 100 mg tablet TAKE 1 TAB BY MOUTH DAILY. BEGIN 2 DAYS BEFORE TRAVEL, DURING VISIT AND 7 DAYS FOLLOWING RETURN 09/05 completed Not Available Not Available Not Available famotidine 40 mg tablet TAKE 1 TABLET BY MOUTH EVERYDAY AT BEDTIME active Not Available Not Available No t Available prednisone 20 mg tablet TAKE ONE TABLET (20MG) BY MOUTH TWICE DAILY FOR 5 DAYS active Not Available Not Available No t Available midodrine 5 mg tablet TAKE 1 TABLET 3 TIMES A DAY 12/04 completed Not Available Not Available Not Available alclometaso ne 0.05 % topical cream 12/20 completed Not Available Not Available Not Available promethazin e 6.25 mg-codeine 10 mg/5 mL syrup Take 5 ML EVERY 6 HOURS by oral route PRN for cough active Not Available Not Available No t Available clopidogrel 75 mg tablet TAKE 1 TABLET BY MOUTH EVERY DAY active Not Available Not Available No t Available spironolact one 25 mg tablet TAKE 1 TABLET (25 MG TOTAL) BY MOUTH DAILY. active Not Available Not Available No t Available levothyroxi ne 75 mcg tablet TAKE 1 TABLET DAILY active Not Available Not Available No t Available pravastatin 10 mg tablet TAKE 1 TABLET DAILY active Not Available Not Available No t Available baclofen 10 mg tablet Take 1 tablet 4 times a day by oral route. 10/24 completed Not Available Not Available Not Available benzonatate 100 mg capsule 06/29 completed Not Available Not Available Not Available flurandreno lide 0.05 % lotion 12/20 completed Not Available Not Available Not Available ferrous sulfate 325 mg (65 mg iron) tablet TAKE 1 TABLET BY MOUTH TWICE A DAY active Not Available Not Available No t Available lansoprazol e 30 mg capsule,del ayed release TAKE 1 CAPSULE DAILY active Not Available Not Available No t Available diclofenac sodium 75 mg tablet,irma yed release TAKE 1 TABLET BY MOUTH TWICE A DAY 10/27 completed Not Available Not Available Not Available montelukast 10 mg tablet TAKE 1 TABLET EVERY EVENING active Not Available Not Available No t Available midodrine 2.5 mg tablet TAKE 1 TABLET BY MOUTH THREE TIMES A DAY 10/27 completed Not Available Not Available Not Available gabapentin 100 mg capsule TAKE 1 CAPSULE 3 TIMES A DAY active Not Available Not Available No t Available loteprednol etabonate 0.5 % eye drops,suspe nsion INSTILL 1 DROP INTO BOTH EYES 3 TIMES A DAY active Not Available Not Available No t Available azelastine 137 mcg (0.1 %) nasal spray USE 1 SPRAY INTRANASA LLY EVERY 12 HOURS ADMINISTE R INTO EACH NOSTRIL active Not Available Not Available No t Available methylpredn isolone 4 mg tablets in a dose pack TAKE 6 TABLETS ON DAY 1 DIRECTED ON PACKAGE AND DECREASE BY 1 TAB EACH DAY FOR A TOTAL OF 6 DAYS 09/05 completed Not Available Not Available Not Available albuterol sulfate HFA 90 mcg/actuati on aerosol inhaler 2 PUFF INHALED EVERY 4 - 6 HOURS NEEDED FOR SHORTNESS OF BREATH OR WHEEZING active Not Available Not Available No t Available Vitamin D2 1,250 mcg (50,000 unit) capsule Take 1 capsule every week by oral route. active Not Available Not Available No t Available Tina 5 mg-325 mg tablet Take 1 tablet every 6 hours by oral route. 10/24 completed Not Available Not Available Not Available cefdinir 300 mg capsule Take 1 capsule every 12 hours by oral route. 03/06 completed Not Available Not Available Not Available amoxicillin 875 mg-potassiu m clavulanate 125 mg tablet TAKE 1 TABLET BY MOUTH EVERY 12 HOURS 04/25 completed Not Available Not Available Not Available neomycin 3.5 mg/g-polymy erik B 10,000 unit/g-dexa meth 0.1 % eye oint APPLY 1/2 INCH RIBBON TWICE DAILY TO BOTH EYES FOR 10 DAYS 10/27 completed Not Available Not Available Not Available Bactrim DS 800 mg-160 mg tablet Take 1 tablet every 12 hours by oral route. 02/20 completed Not Available Not Available Not Available Vitamin B-12 2,500 mcg sublingual tablet twice a day 2015 active Not Available Not Available Not Avai lable Vitamin D3 25 mcg (1,000 unit) capsule Take 1 capsule every day by oral route. 10/24 completed Not Available Not Available Not Available Systane (propylene glycol) 0.4 %-0.3 % eye drops daily 2015 active Not Available Not Available Not Avai lable Multivitami n 50 Plus tablet Take 1 tablet every day by oral route. active Not Available Not Available No t Available cefdinir 250 mg/5 mL oral suspension TAKE 6 ML EVERY 12 HOURS BY MOUTH 09/05 completed Not Available Not Available Not Available Vitamin C 12/20 completed Not Available Not Available Not Available multivitami n daily 02/13 completed Not Available Not Available Not Available Pulmicort 01/01 completed Not Available Not Available Not Available Pulmicort Flexhaler 180 mcg/actuati on breath activated 12/20 completed Not Available Not Available Not Available Creon 6,000-19,00 0-30,000 unit capsule,del ayed release TAKE 2 CAPSULES BY MOUTH 3 TIMES A DAY FOR 1 MONTH (DO NOT EXCEED 10,000 UNIT/KG LIPASE PER 24 HRS) 10/27 completed Not Available Not Available Not Available Probiotic 10 billion cell capsule Take 1 capsule twice a day by oral route. 2015 active Not Available Not Available Not Avai lable Suprep Bowel Prep Kit 17.5 gram-3.13 gram-1.6 gram oral solution PLEASE SEE ATTACHED FOR DETAILED DIRECTION S 10/27 completed Not Available Not Available Not Available Pradaxa 150 mg capsule Take 1 capsule twice a day by oral route. 10/27 completed Not Available Not Available Not Available OneTouch Verio test strips USE TO TEST BLOOD SUGAR ONE TIME A DAY E11.9 active Not Available Not Available No t Available Anoro Ellipta 62.5 mcg-25 mcg/actuati on powder for inhalation Inhale 1 puff every day by inhalatio n route. 10/27 completed Not Available Not Available Not Available Jardiance 10 mg tablet TAKE 1 TABLET DAILY active Not Available Not Available No t Available Spiriva Respimat 1.25 mcg/actuati on solution for inhalation 12/20 completed Not Available Not Available Not Available OneTouch Delica Plus Lancet 33 gauge USE TO TEST BLOOD SUGAR ONE TIME A DAY DX E11.9 active Not Available Not Available No t Available OneTouch Delica Plus Lancing Device kit USE TO TEST BLOOD SUGAR ONE TIME A DAY 2020 active Not Available Not Available Not Avai lable OneTouch Verio Reflect Meter use as directed to check blood sugars active Not Available Not Available No t Available Breyna 160 mcg-4.5 mcg/actuati on HFA aerosol inhaler USE 2 INHALATIO NS ORALLY EVERY 12 HOURS , RINSE MOUTH AND SPIT AFTER EACH USE active Not Available Not Available No t Available Vitals Date Recorded Body height Body mass index (BMI) Body weight Heart rate Body temperature Oxygen saturation Oxygen saturation in Arterial blood by Pulse oximetry Systolic And Diastolic Provider Name and Address Organization Details Last Updated DateTime 5 154.94 cm 37.4 kg/m2 85668.2 9 g 67 /min 97 [degF] 94 % 94 % 134/68 mm[Hg] Melania Honecyutt [facility] [employer] 5 17:01:01 Date Recorded Body height Body mass index (BMI) Body weight Heart rate Oxygen saturation Oxygen saturation in Arterial blood by Pulse oximetry Systolic And Diastolic Provider Name and Address Organization Details Last Updated DateTime 4 154.94 cm 34 kg/m2 30443.6 3 g 65 /min 95 % 95 % 90/62 mm[Hg] Farideh Montalvo CMA [facility] [employer] [facility] 4 16:37:13 Date Recorded Body height Body mass index (BMI) Body weight Heart rate Body temperature Oxygen saturation Oxygen saturation in Arterial blood by Pulse oximetry Systolic And Diastolic Provider Name and Address Organization Details Last Updated DateTime 5 154.94 cm 35.9 kg/m2 64187.5 5 g 58 /min 97 [degF] 95 % 95 % 124/78 mm[Hg] Melania [facility] [employer] 5 16:31:38 Date Recorded Body height Body mass index (BMI) Body weight Heart rate Body temperature Oxygen saturation Oxygen saturation in Arterial blood by Pulse oximetry Systolic And Diastolic Provider Name and Address Organization Details Last Updated DateTime 4 154.94 cm 36.3 kg/m2 16899.7 4 g 78 /min 97.8 [degF] 96 % 96 % 108/72 mm[Hg] PANDA Gonzalez [facility] [employer] [facility] 4 14:37:06 Date Recorded Body height Body mass index (BMI) Body weight Body temperature Heart rate Oxygen saturation Oxygen saturation in Arterial blood by Pulse oximetry Systolic And Diastolic Provider Name and Address Organization Details Last Updated DateTime 3 154.94 cm 30.6 kg/m2 89041.9 6 g 97.3 [degF] 61 /min 96 % 96 % 118/74 mm[Hg] Litzy Pringle MA [facility] 15:01:11 Social History Question Answer Notes LastModified by Organization Details LastModified Time Tobacco Smoking Status Never Smoker Not Available [facility] 10/26/2022 12:52:11 Do You Have An Advance Directive? Yes MIGRATION.0301 [id number] Information not available 10/26/2022 Are You Blind Or Do You Have Difficulty Seeing? No MIGRATION.030 [id number] Information not available 10/26/2022 In The 14 Days Before Symptom Onset, Have You Had Close Contact With A Laboratory-confi rmed COVID-19 While That Case Was Ill? No MIGRATION.030 [id number] Information not available 10/26/2022 In The 14 Days Before Symptom Onset, Have You Had Close Contact With A Person Who Is Under Investigation For COVID-19 While That Person Was Ill? No MIGRATION.0301 [id number] Information not available 10/26/2022 Are You Deaf Or Do You Have Serious Difficulty Hearing? Yes Has Hearing Aids MIGRATION.030 [id number] Information not available 10/26/2022 What Type Of Diet Are You Following? REGULAR MIGRATION.0301 [id number] Information not available 10/26/2022 Have There Been Any Changes To Your Family Or Social Situation? No MIGRATION.0301 [id number] Information not available 10/26/2022 What Is The Fluoride Status Of Your Home? Unknown [email or web address] Information not available 12/20/2022 Are There Any Guns Present In Your Home? No MIGRATION.0301 [id number] Information not available 10/26/2022 Do You Use Insect Repellent Routinely? Yes MIGRATION.0301 [id number] Information not available 10/26/2022 Where Do You Live? SingleLevelHouse MIGRATION.0301 [id number] Information not available 10/26/2022 Are You Able To Care For Yourself? Yes [email or web address] Information not available 12/20/2022 Are You Blind Or Do Yo Have Difficulty Seeing? No [email or web address] Information not available 12/20/2022 Are You Deaf Or Do You Have Serious Difficulty Hearing? Yes [email or web address] Information not available 12/20/2022 Live Alone Of With Others? With Others [email or web address] Information not available 12/20/2022 Do You Have A Medical Power Of Instructional Design Consultant? Yes MIGRATION.0301 [id number] Information not available 10/26/2022 What Was The Date Of Your Most Recent Tobacco Screening? 04/25/2024 [email or web address] Information not available 04/25/2024 Do You Have Any Pets? Yes MIGRATION.0301 [id number] Information not available 10/26/2022 What Is Your Relationship Status? MIGRATION.0301 574234 Information not available 10/26/2022 Do You Use Your Seat Belt Or Car Seat Routinely? Yes MIGRATION.0301 [id number] Information not available 10/26/2022 Do You Have Smoke And Carbon Monoxide Detectors In Your Home? Yes MIGRATION.0301 [id number] Information not available 10/26/2022 Are You Passively Exposed To Smoke? No MIGRATION.0301 169281 Information not available 10/26/2022 Are There Any Smokers In Your House? No MIGRATION.0301 [id number] Information not available 10/26/2022 Do You Use Sunscreen Routinely? Yes MIGRATION.0301 723173 Information not available 10/26/2022 Have You Recently Traveled Abroad? No MIGRATION.0301 [id number] Information not available 10/26/2022 Do You Have Difficulty Walking Or Climbing Stairs? Yes MIGRATION.0301 773124 Information not available 10/26/2022 Do You Have Any Dietary Restrictions? No MIGRATION.0301 [id number] Information not available 10/26/2022 Sex: Unknown Functional Status Question Answer Note LastModified by Organizat ion Details LastModified Time What is your level of alcohol consumption? Occasional [email or web address] Information not available 12/20/2022 Do you have transportation difficulties? No MIGRATION.74240 06501 Information not available 10/26/2022 Are you able to walk? YESWOREST Has a cane she uses sometimes MIGRATION.55439 62533 Information not available 10/26/2022 Do you have difficulty doing errands alone? No MIGRATION.40597 81057 Information not available 10/26/2022 Are you able to care for yourself? Yes MIGRATION.43858 49091 Information not available 10/26/2022 Do you have difficulty dressing or bathing? No MIGRATION.01674 26927 Information not available 10/26/2022 What is your exercise level? None MIGRATION.23485 39302 Information not available 10/26/2022 Mental Status Question Answer Note LastModified by Organizat ion Details LastModified Time Do you have difficulty concentrating, remembering or making decisions? No MIGRATION.[id number] Information not available 10/26/2022 Family History Relationship Description Onset Age of this Age Resolved Age Notes LastModified by Organization Details LastModified Time Mother Diabetes mellitus MIGRATION.914 [id number] Not available 10/26/2022 12:52:16 Mother Muscular dystrophy MIGRATION.904 [id number] Not available 10/26/2022 12:52:17 Mother Heart disease MIGRATION.573 [id number] Not available 10/26/2022 12:52:17 Father Heart disease MIGRATION.483 [id number] Not available 10/26/2022 12:52:17 Maternal Grandmother Hypertensive disorder MIGRATION.679 [id number] Not available 10/26/2022 12:52:17 Maternal Grandmother Acute stroke MIGRATION.0 30 [id number] Not available 10/26/2022 12:52:17 Brother Kidney disease MIGRATION.263 [id number] Not available 10/26/2022 12:52:17 Notes:Mother 45 from co mplications of muscular dystrophy, DM and ASHD. Father 47 from ASHD One brother 59 from hypertension and CRF Medical History Condition Response BLINDNESS N NERVE DISEASE N RHEUMATIC FEVER N BLADDER PROBLEMS N KIDNEY STONES N MRSA N OTHER # 1 N POLIO N LUNG DISEASE/DISORDER N HISTORY OF DRUG ABUSE N RADIATION / CHEMOTHERAPY N COPD N Other # 2 N BLOOD DISEASES N EAR OR HEARING PROBLEMS N MUMPS N SHINGLES N BOWEL PROBLEMS N DEPRESSION (INCLUDING POST ) N STROKE/TIA N ULCERS N BENIGN PROSTATIC HYPERPLASIA N MEASLES N HYPOTENSION Y MYOCARDIAL INFARCTION N OBESITY N GERD/NAUSEA N ANEURYSM N URINARY/BLADDER/KIDNEY PROBLEMS N CORONARY ARTERY DISEASE (CAD) N ADDICTION CONCERNS N Impotence N ENDOMETRIOSIS N USE OF BLOOD THINNERS N SKIN PROBLEMS N GASTROINTESTINAL DISORDER N PERIPHERAL VASCULAR DISEASE N MUSCLE,JOINT OR BONE PROBLEMS N GASTROINTESTINAL BLEEDING N BLOOD CLOTS N ASTHMA N CATARACTS N ERECTILE DYSFUNCTION N VARICOSITIES N GI PROBLEMS N Low Testosterone N INFERTILITY N AIDS/HIV N CHEMOTHERAPY / RADIATION N LIVER DISEASE N MALE HYPOGONADISM N HYPERTENSION N Deficiency N TOURETTE'S N ANXIETY DISORDER N BLOOD TRANSFUSION N ANEMIA/BLOOD DISORDER N CHRONIC EAR INFECTIONS N BRONCHITIS N TUBERCULOSIS N GLAUCOMA N FOOT PROBLEM N DIVERTICULITIS N SLEEP APNEA N CHICKENPOX N INFECTIOUS DISEASE N PROSTATE N HEART ARRHYTHMIA Y INSOMNIA N HIGH CHOLESTEROL / HYPERLIPIDEMIA N HYPERTHYROIDISM N EYE PROBLEMS N EDEMA N CHRONIC PAIN SYNDROME N HYPOTHYROIDISM N CONSTIPATION N CAROTID BLOCKAGE N BACK / NECK PROBLEMS N HAVE YOU BEEN HOSPITALIZED OR SEEN IN [facility] IN THE PAST YEAR ? Y ATHEROSCLEROSIS N BREAST PROBLEMS N DIALYSIS N ECZEMA N OSTEOPOROSIS N ARTHRITIS N NO SIGNIFICANT PAST MEDICAL HISTORY N APPENDICITIS N BAD TEETH N ENT N HEARTBURN / REFLUX N AUTISM SPECTRUM DISORDER (ASD) N HEPATITIS / LIVER DISEASE N GOUT N SLEEP DISORDER N ALZHEIMER'S DISEASE N Brain Problems N HERPES N DEMENTIA N SEIZURES/EPILEPSY N HEADACHES/MIGRAINES N VASCULAR DISEASE N PACEMAKER N Blood Disorder N DIZZINESS N KIDNEY DISEASE N HEART DISEASE/HEART PROBLEMS N MULTIPLE SCLEROSIS N CARDIAC ARRHYTHMIA N CANCER: SPECIFY N Gall Stones N ATRIAL FIBRILLATION Y PULMONARY EMBOLISM N AUTOIMMUNE DISEASE N Gynecological History Statement/Question Response Date of Last Mammogram 01/15/2019 Date of Last Colonoscopy 09/09/2020 Obstetrics History GPAL:G 0 P 0 0 0 0 Immunizations Vaccine Type Date Status Note Provider Nam e and Address Organization Details Recorded Time SARS-COV-2 (COVID-19) vaccine, UNSPECIFIED 4 completed Melania [email or web address] [employer] 10/15/2024 15:09:49 influenza, unspecified formulation 4 completed Melaniadafne Rincon [employer] 10/15/2024 15:10:20 COVID-19, mRNA, LNP-S, PF, 100 mcg/0.5mL dose or 50 mcg/0.25mL dose 2 completed Not Available [facility] 10/26/2022 12:59:17 Influenza, high-dose, quadrivalent, PF 0 completed Not Available [facility] 10/26/2022 12:59:18 pneumococcal polysaccharide PPV23 5 completed Not Available [facility] 10/26/2022 12:59:18 Influenza, high-dose, quadrivalent, PF 2 completed Not Available [facility] 10/26/2022 12:59:18 COVID-19, mRNA, LNP-S, PF, 100 mcg/0.5mL dose or 50 mcg/0.25mL dose 1 completed Not Available [facility] 10/26/2022 12:59:18 COVID-19, mRNA, LNP-S, PF, 100 mcg/0.5mL dose or 50 mcg/0.25mL dose 1 completed Not Available [facility] 10/26/2022 12:59:18 COVID-19, mRNA, LNP-S, PF, 100 mcg/0.5mL dose or 50 mcg/0.25mL dose 1 completed Not Available [facility] 10/26/2022 12:59:18 Influenza, high-dose, quadrivalent, PF 1 completed Not Available [facility] 10/26/2022 12:59:18 Influenza, high-dose, trivalent, PF 7 completed Not Available [facility] 10/26/2022 12:59:18 Pneumococcal conjugate PCV 13 7 completed Not Available [facility] 10/26/2022 12:59:18 Past Encounters Encounter ID Performer Location Encounter Start Date Encounter Closed Date Diagnosis/Indication Diagnosis SNOMED-CT Code Diagnosis ICD10 Code Diagnosis Note [id number] Hira Rouse MD [facility] [place] [address] [place] [address] [place] [address] 10/27/2020 00:00:00 10/27/2020 15:52:53 [id number] Hira Rouse MD [facility] [place] [address] [place] [address] [place] [address] 03/02/2021 00:00:00 03/02/2021 15:51:14 [id number] Hira Rouse MD [facility] [place] [address] [place] [address] [place] [address] 06/29/2021 00:00:00 06/29/2021 14:45:43 [id number] [facility] [place] [address] [place] [address] [place] [address] 08/24/2021 00:00:00 08/24/2021 16:08:01 [id number] Hira Rouse MD [facility] [place] [address] [place] [address] [place] [address] 10/26/2021 00:00:00 10/26/2021 15:43:42 [id number] [facility] [place] [address] [place] [address] 10/29/2021 00:00:00 10/29/2021 23:20:22 [id number] [facility] [place] [address] [place] [address] 12/10/2021 00:00:00 12/10/2021 13:34:48 [id number] Hira Rouse MD [facility] [place] [address] [place] [address] [place] [address] 12/21/2021 00:00:00 12/21/2021 16:37:45 [id number] [facility] [place] [address] [place] [address] 03/25/2022 00:00:00 03/25/2022 16:54:21 [id number] Hira Rouse MD [facility] [place] [address] [place] [address] [place] [address] 04/26/2022 00:00:00 04/26/2022 15:45:07 [id number] Hira Rouse MD [facility] [place] [address] [place] [address] [place] [address] 08/23/2022 00:00:00 08/23/2022 16:09:57 [id number] Hira Rouse MD [facility] [place] [address] [place] [address] [place] [address] 12/20/2022 15:37:23 12/20/2022 16:25:50 Adult health examination 579298187 Z00.00 Screening for disorder 818745214 Z13.9 Atrial fibrillation 4943 6004 I48.91 Hypothyroidism 74233714 E03.9 Hyperlipidemia 07245002 E78.5 [id number] Hira Rouse MD [facility] [place] [address] [facility] [address] [place], [place] [address] 04/28/2023 14:53:37 04/28/2023 15:37:24 Atrial fibrillation 71686371 I48.91 Hyperlipidemia 52785859 E78.5 Hypothyroidism 17510129 E03.9 Gastroesop hageal reflux disease 685980894 K21.9 Obese class I 2328614967 18794 E66.9 [id number] Hira Rouse MD [facility] [place] [address] [place] [address] 12/05/2023 16:24:02 12/05/2023 17:10:17 Acute bronchitis 51644036 J20.0 J20.9 J20.1 J20.2 J20.3 J20.4 J20.5 J20.6 J20.7 J20.8 Atrial fibrillation 4943 6004 I48.91 Hyperlipidemia 90890860 E78.5 Hypothyroidism 93920291 E03.9 [id number] Hira Rouse MD [facility] [place] [address] [facility] [address] [place], [place] [address] 04/25/2024 14:25:37 04/25/2024 16:09:15 Adult health examination 537180869 Z00.00 Screening for disorder 335620584 Z13.9 Hypothyroidism 28082310 E03.9 Atrial fibrillation 4943 6004 I48.91 Gastroesop hageal reflux disease 516402021 K21.9 Hyperlipidemia 08085372 E78.5 Obese class II 921998548 1 79500 E66.9 [id number] Hira Rouse MD [facility] [place] [address] [facility] [address] [place] [address] 09/05/2024 16:21:08 09/05/2024 17:19:38 Atrial fibrillation 11499519 I48.91 Chronic ob structive pulmonary disease 52820325 J44.9 Hypothyroidism 58659018 E03.9 Obese class II [id number] 1 29725 E66.9 Hyperlipidemia 83404660 E78.5 [id number] Hira Rouse MD [facility] [address] [facility], [facility] [address] [place] [address] 02/13/2025 16:09:10 02/13/2025 16:59:54 Gastroesophageal reflux disease [id number] K21.9 Hyperlipidemia 58853644 E78.5 Hypothyroidism 38140867 E03.9 Chronic ob structive pulmonary disease 29005081 J44.9 Health Concerns Section Related Observation LastModified by Organization Detai ls LastModified Time None Recorded Concern Status LastModified by Organization Details LastModified Time None Recorded Advance Directives Directive Y: Payers Insurance Date Sequence Insurance Name Policy Number Policy Johnson Covered Member ID Johnson Member ID Guarantor Name 02/13/2025 1 [employer] (MEDICARE REPLACEMENT /ADVANTAGE - PPO) [id number] Lady Olivera [id number] Lady Olivera Notes Date Note Type Note Provider Name and Address Organization Details Recorded Time 04/28/20 23 text/htm l Patient Name: Lady Billyte Of Service: Monday ( 04.28.2023 ): 1950 Age: 72 There has been approximately a 14 lb weight gain since 12/20/2022. This represents approximately a 9.5% change in weight. Weight change attributable to lifestyle changes. Vital Signs:Blood Pressure: Sitting Rt. Arm 118/74Pulse: Sitting 61 /min and RegularRespirations: 12Height 61 in or 1.5 mWeight 162 lb or 73.5 kgBMI 30.6Temperature: 97.3 F or 36.3 CPulse Oximetry: 96 % at rest on no oxygen Chief Complaint: Addressed in HPI Problems or conditions discussed in the HPI were the only ones reviewed during the encounter.Only social and family history addressed in the HPI were reviewed during this encounter. Attendant(s): None Constitutional and Systemic Symptoms: none Medication Reconciliation: from medication list. History of Present Illness #1. Atrial Fibrillation: Type: Paroxysmal with recurrent episodes lasting less than 7 days. Further classification: Non-valvular. Associated history of essential hypertension. No attending hx of any shortness of breath, palpitations, syncopal or neurological symptoms. Current medications: Midodrine Hydrochloride. Rate control: controlled ventricular response [id number] Criteria: hypertension and Age 65-74 for embolic phenomenon. Anticoagulation: none #2. Type I Hypercholesterolaemia: Currently taking medication and tolerating well. No interval complaints of any muscle pain or arthralgia. No significant liver changes with medications. Last lipid panel: fair control. Therapy reviewed regarding treatment of cholesterol management and include diet and Pravachol. #3. Hx of hypothyroidism currently stable. Heat intolerance: no Fatigue: no Weight gain: no Difficulty concentrating: no Muscle Symptoms: none Skin Texture: normal Skin Color: normal Currently taking synthroid. #4. Hx of esophageal reflux currently stable. Hx of Complications: none The severity, duration and intensity of symptoms have improved. Frequency: most meals Treatment consists medications taken on no regular basis. Current therapy includes Prevacid. There has been no nausea, eructation, vomiting, hematemesis, dysphagia, velopharyngeal insufficiency and odynophagia. No change in he frequency or intensity of symptoms. Has had no melena. Has had no hematemesis. Discuss the possibility of trying to reduce the frequency of the use of any PPI inhibitors or H2 antagonist to see if symptoms can be controlled with last intensive therapy #5. Hx of obesity. Currently Class 1 Obesity BMI 30-34.99. Has tried numerous dietary support and supplements with no benefit. Instructed on the health consequences of the obese status particularly cancer - diabetes and heart disease. Discussed new modalities of weight loss including GLP-1 medications that are used to treat diabetes. Potential candidate for bariatric surgery: Yes but does no wish to pursue. Wishes to be evaluated by Dietary: No and was offered to be evaluated and instructed by supervisor putty and caluking on weight loss diet.Medication List Reviewed and Reconciled 04/28/2023Ventolin Hfa 0.09 MG /INH (AEROSOL, METERED - INHALATION) Two Puffs QidFerrous Sulfate BidMidodrine Hydrochloride 5 MG (TABLET - ORAL) 3 Tabs DailyCordran 0.05% (LOTION - TOPICAL) As DirectedSynthroid 0.075 MG (TABLET - ORAL) One Daily For Thyroid ReplacementPrevacid 30 MG (CAPSULE, DELAYED REL PELLETS - ORAL) One Daily For RefluxSingulair 10 MG (TABLET - ORAL) QdProbiotic Twice A DayVitamin B12 DailyVitamin D 50,000 IU (CAPSULE - ORAL) D3 DailyMultivitamin DailyFurosemide 40 MG (TABLET - ORAL) One DailyPravachol 10 MG (TABLET - ORAL) One DailyVaccination and Nkalgsmwcxpf7347-34 Covid Otpsawm4897-03 Rfobeigbh6733-19 Prevnar 511216-78 Zostavax (shingles)2015-05 Pneumovax 23Surgical HistoryBreast Biopsy, Lap Cholecystectomy, YOSSI BSO, Partial Hysterectomy, Small Bowel BypassPreventative Testing Confirmed by Our Siwvwch1402/08/2022 MAMMOGRAM DEXA SCAN10/05/2021 UPPER RJZACWTSH46/08/2022 COLONOSCOPY /12/2021 CT OHJKOA9110/01/2021 ALBUMIN 2.2 G/DL L1 HAIC02/18/2021 LETTER OPHTHALMOLOGY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 This represents approximately a 11.1% change in weight. Weight change attributable to lifestyle changes. Vital Signs:Blood Pressure: Sitting Rt. Arm 906/2Pulse: Sitting 65 /min and RegularRespiratory Rate: 12Height 61 in or 1.5 mWeight 180 lb or 81.6 kgBMI 34.0Temperature: 99.6 F or 37.6 CPulse Oximetry: 95 % at rest on no oxygen Chief Complaint: Addressed in HPI Problems or conditions discussed in the HPI were the only ones reviewed during the encounter.Only social and family history addressed in the HPI were reviewed during this encounter. Attendant(s): NoneConstitutional and Systemic Symptoms:none Medication Reconciliation: from medication list. History of Present Illness #1. Cough congestion proximally five days' duration. Was on a 90 day cruise to the [facility]. No high fevers, chills, wheezing or other systemic manifestations outside of some anorexia. Denies any rashes. No one else on board had any similar type symptoms otology. Sputum purulent at times. No associated blood: #2. Atrial Fibrillation: Type: Paroxysmal with recurrent episodes lasting less than 7 days. Further classification: Non-valvular. Associated history of none. No attending hx of any shortness of breath, palpitations, syncopal or neurological symptoms. Current medications: no specific medication. Rate control: controlled ventricular response [id number] Criteria: hypertension, Age > 75 and and considered moderate risk for embolic phenomenon. Anticoagulation: ASA per cardiology #3. Type II Hypercholesterolaemia: Currently taking medication and tolerating well. No interval complaints of any muscle pain or arthralgia. No significant liver changes with medications. Last lipid panel: fair control. Therapy reviewed regarding treatment of cholesterol management and include diet and Pravachol. #4. Hx of hypothyroidism currently stable. Heat intolerance: no Fatigue: no Weight gain: no Difficulty concentrating: no Muscle Symptoms: none Skin Texture: normal Skin Color: normal Currently taking synthroid. Active Medication ListVentolin Hfa 0.09 MG /INH (AEROSOL, METERED - INHALATION) Two Puffs QidFerrous Sulfate BidMidodrine Hydrochloride 5 MG (TABLET - ORAL) 3 Tabs DailyCordran 0.05% (LOTION - TOPICAL) As DirectedSynthroid 0.075 MG (TABLET - ORAL) One Daily For Thyroid ReplacementPrevacid 30 MG (CAPSULE, DELAYED REL PELLETS - ORAL) One Daily For RefluxSingulair 10 MG (TABLET - ORAL) QdProbiotic Twice A DayVitamin B12 DailyVitamin D 50,000 IU (CAPSULE - ORAL) D3 DailyMultivitamin DailyFurosemide 40 MG (TABLET - ORAL) One DailyPravachol 10 MG (TABLET - ORAL) One Daily Vaccination and Jsekdoqvlogu7953-61 Covid Voepnjn9355-62 Ihllifxyu7260-61 Prevnar 13 Fb6524-36 Zostavax (shingles)2015-05 Pneumovax Surgical Fwnqqmx8338-55 Breast Iohofo9179-09 Lap Ddwsfdaxgwcoycb0648-92 [facility] KIS1551-21 Partial Rrjubytvqeeg7460-55 Small Bowel Bypass Preventative Csspuwg4205/03/2023 HAIC02/08/2022 MAMMOGRAM / DEXA SCAN10/05/2021 UPPER QWSJZELPF18/08/2022 COLONOSCOPY /12/2021 CT JOLJRG5310/01/2021 ALBUMIN 2.2 G/DL L02/18/2021 OPHTHALMOLOGY 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 Family HistoryMother 45 from complications of muscular dystrophy, DM and ASHD.Father 47 from ASHDOne brother 59 from hypertension and CRF Hira Rouse MD [address] [facility], [facility] [address], [place], [address], [facility] [employer] 12/05/2023 17:00:46 04/25/20 24 text/htm l Patient Name: Lady Diaz Of Service: March ( 04.25.2024 ): 1950 Age: 73 There has been approximately a 12 lb weight gain since 12/05/2023. This represents approximately a 6.7% change in weight. Weight change attributable to lifestyle changes. Vital Signs:Blood Pressure: Sitting Rt. Arm 168/72Pulse: Sitting 78 /min and RegularRespiratory Rate: 14Height 61 in or 1.5 mWeight 192 lb or 87.1 kgBMI 36.3Temperature: 97.8 F or 36.6 CPulse Oximetry: 96 % at rest on no oxygen Chief Complaint: Addressed in HPI Problems or conditions discussed in the HPI were the only ones reviewed during the encounter.Only social and family history addressed in the HPI were reviewed during this encounter. A significant, separate E/M service was performed to evaluate the current and new problems. Attendant(s): NoneConstitutional and Systemic Symptoms:none Medication Reconciliation: from medication list. History of Present Illness Reviewed the findings of the preventative health visit. Addressed all areas with the patient, patient's family or caregivers. Preventative examinations and testing immunizations - vaccinations, colonic neoplasm screening, mammograms and DEXA Scan all reviewed and ordered where patient was amenable to the recommendations. Cognitive function was normal. Depression addressed and where necessary medications were adjusted or instituted. End of life and living will briefly discussed with patient and where these can be filled out and legally executed. Other blood and imaging studies were ordered if considered necessary. Other recommendations may be found in the encounter note. #1. Essential Hypertension: Stage: Stage I Interval Neurological Complaints no headaches, dizziness, weakness, visual changes, ataxia, aphasia and apraxia. No shortness of breath, orthopnea or cardiovascular symptoms. No other symptoms related to end organ damage. Pressure has been under excellent control. Currently normal. No other end organ symptoms or findings. Therapy reviewed regarding management of hypertension and includes salt restriction and Furosemide and Spironolactone. #2. Atrial Fibrillation: Type: Paroxysmal with recurrent episodes lasting less than 7 days. Further classification: Non-valvular. Associated history of none. No attending hx of any shortness of breath, palpitations, syncopal or neurological symptoms. Current medications: no specific medication. Rate control: controlled ventricular response [id number] Criteria: Age 65-74 and and considered moderate risk for embolic phenomenon. Anticoagulation: Watchman Device #3. Type II Hypercholesterolaemia: Currently taking medication and tolerating well. No interval complaints of any muscle pain or arthralgia. No significant liver changes with medications. Last lipid panel: fair control. Therapy reviewed regarding treatment of cholesterol management and include diet and Pravachol. #4. Hx of hypothyroidism currently stable. Heat intolerance: no Fatigue: no Weight gain: no Difficulty concentrating: no Muscle Symptoms: none Skin Texture: normal Skin Color: normal Currently taking synthroid. #5. Hx of esophageal reflux currently stable. Hx of Complications: none The severity, duration and intensity of symptoms have improved. Frequency: most meals Treatment consists medications taken on a regular basis. Current therapy includes Prevacid. There has been no nausea, eructation, vomiting, hematemesis, dysphagia, velopharyngeal insufficiency and odynophagia. No change in he frequency or intensity of symptoms. Has had no melena. Has had no . Discussed use of H2 antagonists and the possibility of trying to reduce the frequency of the use of any PPI inhibitors and try H2 antagonists to see if symptoms can be controlled with lease intensive therapy since a number of complications are associated with chronic prolonged use of PPI inhibitors. #6. Hx of obesity. Currently Class 2 Obesity BMI 35-39.99. Has tried numerous dietary support and supplements with no benefit. Instructed on the health consequences of the obese status particularly cancer - diabetes and heart disease. Discussed other modalities of weight loss GLP-1 medications that are used to treat diabetes. Potential candidate for bariatric surgery: Yes but insurance will not cover. Wishes to be evaluated by Dietary: No and was offered to be evaluated and instructed by supervisor putty and caluking on weight loss diet. Active Medication ListVentolin Hfa 0.09 MG /INH (AEROSOL, METERED - INHALATION) Two Puffs QidFerrous Sulfate BidCordran 0.05% (LOTION - TOPICAL) As DirectedSynthroid 0.075 MG (TABLET - ORAL) One Daily For Thyroid ReplacementPrevacid 30 MG (CAPSULE, DELAYED REL PELLETS - ORAL) One Daily For RefluxSingulair 10 MG (TABLET - ORAL) QdProbiotic Twice A DayVitamin B12 DailyVitamin D 50,000 IU (CAPSULE - ORAL) D3 DailyMultivitamin DailyFurosemide 40 MG (TABLET - ORAL) One DailyPravachol 10 MG (TABLET - ORAL) One DailyPlavix 75 MG TABLET, FILM COATED One DailyJardiance 10 MG TABLET, FILM COATED One DailySpironolactone 25 MG TABLET One Daily Vaccination and Jccsokivdest7266-17 Covid Efrdvfj9826-65 Gnabfrzvu3360-55 Prevnar 13 Xr0896-86 Zostavax (shingles)2014- Pneumovax Surgical Laipdzc9292-41 Watchman Vqcfmb7802-64 Breast Wljjas7905-46 Lap Czquhaqvcyudexk0560-99 [facility] WUR8138-34 Partial Lyzdtljxcuhu0940-91 Small Bowel Bypass Preventative Testing( ) 12/11/2023 Albumin 3.9 G/DL( ) 05/03/2023 HAIC(X) 02/08/2022 Mammogram 02/09/2024(X) 02/08/2022 DEXA Scan 02/09/2024( ) 10/05/2021 Upper Endoscopy( ) 10/05/2021 Colonoscopy ( 3 Years ) 10/05/2024( ) 10/02/2021 CT Thorax( ) 02/18/2021 Ophthalmology 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 Family HistoryMother 45 from complications of muscular dystrophy, DM and ASHD.Father 47 from ASHDOne brother 59 from hypertension and CRF TEST RESULT RANGE UNITSLIPID PANEL Date: 4CHOLESTEROL, TOTAL 175 100-199 MG/DLTRIGLYCERIDES 244 0-149 MG/DLHDL CHOLESTEROL 53 >39 MG/DLLDL CHOL CALC (NIH) 82 0-99 MG/DLCOMP. METABOLIC PANEL (14) Date: 12/11/2023SODIUM 144 134-144 MMOL/LPOTASSIUM 3.8 3.5-5.2 MMOL/LGLUCOSE 84 70-99 MG/DLBUN 22 8-27 MG/DLCREATININE 0.98 0.57-1.00 MG/DLAST (SGOT) 14 0-40 IU/LALT (SGPT) 15 0-32 IU/LT4,FREE(DIRECT) Date: 12/11/2023T4,FREE(DIRECT) 1.53 0.82-1.77 NG/DLTHYROID STIMULATING HORMONE Date: 12/11/2023TSH-ICMA 1.6 UU/MLCBC WITH DIFFERENTIAL/PLATELET Date: 12/11/2023WBC 14.5 3.4-10.8 X10E3/ULHEMOGLOBIN 15.1 11.1-15.9 G/DLHEMATOCRIT 47.0 34.0-46.6 %PLATELETS 453 150-450 X10E3/UL Hira Rouse MD [address], [address], [facility] 04/25/2024 15:15:02 09/05/19 25 text/htm l Patient Name: Lady Diaz Of Service: August ( 09.05.2024 ): 1950 Age: 74 There has been approximately a 6 lb weight gain since 04/25/2024. This represents approximately a 3.1% change in weight. Weight change attributable to lifestyle changes. Vital Signs:Blood Pressure: Sitting Rt. Arm 134/68Pulse: Sitting 67 /min and RegularRespiratory Rate: 14Height 61 in or 1.5 mWeight 198 lb or 89.8 kgBMI 37.4Temperature: 97 F or 36.1 CPulse Oximetry: 94 % at rest on no oxygen Chief Complaint: Addressed in HPI Problems or conditions discussed in the HPI were the only ones reviewed during the encounter.Only social and family history addressed in the HPI were reviewed during this encounter. Attendant(s): HusbandConstitutional and Systemic Symptoms:none Medication Reconciliation: from medication list. History of Present Illness #1. Atrial Fibrillation: Type: Paroxysmal with recurrent episodes lasting less than 7 days. Further classification: Non-valvular. Associated history of none. No attending hx of any shortness of breath, palpitations, syncopal or neurological symptoms. Current medications: Plavix. Rate control: controlled ventricular response [id number] Criteria: Age > 75 for embolic phenomenon. Anticoagulation: ASA per cardiology #2. COPD: Hx of Emphysema currently stable. There has been no interval change in exercise tolerance an shortness of breath. No change in sputum production, color or consistency. No fever, chills, weight loss or other constitutional symptoms. Gold Scale: Mild. MRC Scale: vigorous walking. Smoking: currently smoking and instructed once again on cessation techniques Current medications: Ventolin Hfa Using nebulizer Treatments: No. Uses supplemental oxygen #3. Hx of hypothyroidism currently stable. Heat intolerance: no Fatigue: no Weight gain: no Difficulty concentrating: no Muscle Symptoms: none Skin Texture: normal Skin Color: normal Currently taking synthroid. #4. Type II Hypercholesterolaemia: Currently taking medication and tolerating well. No interval complaints of any muscle pain or arthralgia. No significant liver changes with medications. Last lipid panel: fair control. Therapy reviewed regarding treatment of cholesterol management and include diet and Pravachol. #5. Hx of obesity. Currently Class 2 Obesity BMI 35-39.99. Has tried numerous dietary support and supplements with no benefit. Instructed on the health consequences of the obese status particularly cancer - diabetes and heart disease. Discussed other modalities of weight loss no . Potential candidate for bariatric surgery: No. Wishes to be evaluated by Dietary: No and was offered to be evaluated and instructed by supervisor putty and caluking on weight loss diet. Active Medication ListVentolin Hfa 0.09 MG /INH (AEROSOL, METERED - INHALATION) Two Puffs QidFerrous Sulfate BidCordran 0.05% (LOTION - TOPICAL) As DirectedSynthroid 0.075 MG (TABLET - ORAL) One Daily For Thyroid ReplacementPrevacid 30 MG (CAPSULE, DELAYED REL PELLETS - ORAL) One Daily For RefluxSingulair 10 MG (TABLET - ORAL) QdProbiotic Twice A DayVitamin B12 DailyVitamin D 50,000 IU (CAPSULE - ORAL) D3 DailyMultivitamin DailyFurosemide 40 MG (TABLET - ORAL) One DailyPravachol 10 MG (TABLET - ORAL) One DailyPlavix 75 MG TABLET, FILM COATED One DailyJardiance 10 MG TABLET, FILM COATED One DailySpironolactone 25 MG TABLET One Daily Vaccination and Immunization( ) 2024-05 INFLUENZA( ) 2016-05 ZOSTAVAX (SHINGLES)(X) 2017-05 PREVNAR 13 GC PREVNAR 20 Needed( ) 2015-05 PNEUMOVAX( ) 2021-06 COVID MODERNA( ) 2024-05 COVID BOOSTER MODERNA Surgical Rcykxoe2399-44 Watchman Myurlj0095-11 Breast Tjskwl5311-70 Lap Zyhoomikgzmlkpg1573-43 YOSSI KSN6282-83 Partial Dwyrbisepbof3268-01 Small Bowel Bypass Preventative Testing( ) 08/07/2024 Upper Endoscopy ( 3 Years ) 08/07/2027( ) 12/11/2023 Albumin 3.9 G/DL( ) 05/03/2023 HAIC(X) 02/08/2022 Mammogram 02/09/2024(X) 02/08/2022 DEXA Scan 02/09/2024( ) 10/05/2021 Colonoscopy ( 3 Years ) 10/05/2024( ) 10/02/2021 CT Thorax( ) 02/18/2021 Ophthalmology 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 Family HistoryMother 45 from complications of muscular dystrophy, DM and ASHD.Father 47 from ASHDOne brother 59 from hypertension and CRF Hira Rouse MD [address] [place] [address], [facility] [address], [place], [address], [facility] [employer] 09/05/2024 17:13:12 02/14/20 25 text/htm l Patient Name: Lady Diaz Of Service: January ( 02.13.2025 ): 1950 Age: 74 There has been approximately a 8 lb weight loss since 09/05/2024. This represents approximately a 4.0% change in weight. Weight change attributable to lifestyle changes. Vital Signs:Blood Pressure: Sitting Rt. Arm 124/78Pulse: Sitting 58 /min and RegularRespiratory Rate: 16Height 61 in or 1.5 mWeight 190 lb or 86.2 kgBMI 35.9Temperature: 97 F or 36.1 CPulse Oximetry: 95 % at rest on no oxygen Chief Complaint: Addressed in HPI Problems or conditions discussed in the HPI were the only ones reviewed during the encounter.Only social and family history addressed in the HPI were reviewed during this encounter. Attendants(s) + NoneConstitutional and Systemic Symptoms:none Medication Reconciliation: from medication list. History of Present Illness #1. COPD: Hx of Emphysema currently stable. There has been no interval change in exercise tolerance an shortness of breath. No change in sputum production, color or consistency. No fever, chills, weight loss or other constitutional symptoms. Gold Scale: Mild. MRC Scale: only strenuous activity. Smoking: not currently smoking Current medications: none Using nebulizer Treatments: No. Uses supplemental oxygen #2. Hx of esophageal reflux currently stable. Hx of Complications: none The severity, duration and intensity of symptoms have improved. Frequency: most meals Treatment consists medications taken on a regular basis. Current therapy includes Prevacid. There has been no nausea, eructation, vomiting, hematemesis, dysphagia, velopharyngeal insufficiency and odynophagia. No change in he frequency or intensity of symptoms. Has had no melena. Has had no . Discussed use of H2 antagonists and the possibility of trying to reduce the frequency of the use of any PPI inhibitors and try H2 antagonists to see if symptoms can be controlled with lease intensive therapy since a number of complications are associated with chronic prolonged use of PPI inhibitors. #3. Type II Hypercholesterolaemia: Currently taking medication and tolerating well. No interval complaints of any muscle pain or arthralgia. No significant liver changes with medications. Last lipid panel: fair control. Therapy reviewed regarding treatment of cholesterol management and include diet and Pravachol. #4. Hx of hypothyroidism currently stable. Heat intolerance: no Fatigue: no Weight gain: no Difficulty concentrating: yes Muscle Symptoms: none Skin Texture: normal Skin Color: normal Currently taking synthroid. #5. Hx of obesity. Currently Class 2 Obesity BMI 35-39.99. Has tried numerous dietary support and supplements with no benefit. Instructed on the health consequences of the obese status particularly cancer - diabetes and heart disease. Discussed other modalities of weight loss no . Potential candidate for bariatric surgery: Yes. Wishes to be evaluated by Dietary: No and was offered to be evaluated and instructed by supervisor putty and caluking on weight loss diet. Active Medication ListVentolin Hfa 0.09 MG /INH (AEROSOL, METERED - INHALATION) Two Puffs QidFerrous Sulfate BidCordran 0.05% (LOTION - TOPICAL) As DirectedSynthroid 0.075 MG (TABLET - ORAL) One Daily For Thyroid ReplacementPrevacid 30 MG (CAPSULE, DELAYED REL PELLETS - ORAL) One Daily For RefluxSingulair 10 MG (TABLET - ORAL) QdProbiotic Twice A DayVitamin B12 DailyVitamin D 50,000 IU (CAPSULE - ORAL) D3 DailyMultivitamin DailyFurosemide 40 MG (TABLET - ORAL) One DailyPravachol 10 MG (TABLET - ORAL) One DailyPlavix 75 MG TABLET, FILM COATED One DailyJardiance 10 MG TABLET, FILM COATED One DailySpironolactone 25 MG TABLET One Daily Adverse Drug Reactions ReviewedNo Known Adverse Drug Reactions! Vaccination and Immunization ( ) 2024-05 INFLUENZA( ) 2016-05 ZOSTAVAX (SHINGLES)(X) 2017-05 PREVNAR 13 GC PREVNAR 20 Needed( ) 2015-05 PNEUMOVAX( ) 2020- COVID MODERNA( ) 2024-05 COVID BOOSTER MODERNA( ) 2024-05 COVID PFIZERImmunizations and Vaccinations Discussed and Implemented if feasible In the Office. Else referred to pharmacies. 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 Family HistoryMother 45 from complications of muscular dystrophy, DM and ASHD.Father 47 from ASHDOne brother 59 from hypertension and CRF Hira Rouse MD [address] [address], [place], [address], [facility] 02/13/2025 16:52:56 OBGyn Episode No OBEpisode recorded.
--- OUTSIDE RECORDS SUMMARY | 2025-03-13 02:11 | XMS_ITS | Continuity of Care Document ---
Author Organization [facility] Address [address] [place] [address] Phone Care Team Providers Care Jackscrew Man Name Role Phone Mckoy OD, Marcelo Unavailable Unavailable Procedures Procedure Date Office/outpatient Visit, [facility] Advance Directives Directive Yes / No Effective Date File Name No Information Encounters Encounter Description Practice Location Reason(s) For Visit Diagnoses Date Provider Providers Copied on Encounter Office/outpat ient Visit, [facility], [address], [place], [place], [address], [place] tel:[phone] [facility] No Information 3-200 7 Mckoy OD Marcelo. [address] , [address], [place], [address], [place]. tel:[phone] Referring Provider: Adonis Llanes OD, [address] [place], [address]. tel:[phone] Family History Family Member Type Diagnosis Age At Onset No Information Payers Payer name Insurance type Covered democrat ID Authoriza tion(s) [facility] Custom Care CI [id number] [facility] Out Of State BL [id number] Social History Type Description Quantity Date Captured Comments Sex Female Smoking Status No Information Chief Complaint And Reason For Visit No Information Reason For Referral Reason For Referral No Information History Of Present Illness Encounter Date Complaint History Of Prese nt Illness No Information Functional Status Date Functional Assessmen t No Information Instructions Date Instruction Additional Infor mation No Information Assessments Type Assessment Date No Information Patient Care Teams Name Effective Dates (start - stop) Status Members No Information
--- OUTSIDE RECORDS SUMMARY | 2025-03-13 02:11 | XMS_ITS | Clinical Summary ---
Author Organization [facility] Address [address] [place] [address] Care Team Providers Care Branch Customer Service Representative Name Role Phone Josh Rouse MD Primary Care Provider [phone] Allergies No known active allergies Medications albuterol sulfate 90 mcg/Actuation inhaler Take 2 Puffs by inhalation. Active budesonide-for moteroL (SYMBICORT) 160-4.5 mcg/actuation HFA Aerosol Inhaler budesonide-formot selam HFA 160 mcg-4.5 mcg/actuation aerosol inhaler Active dabigatran etexilate (Pradaxa) 150 mg Capsule TAKE 1 CAPSULE TWICE DAILY 1 Active ergocalciferol (VITAMIN D2) 50,000 unit capsule Vitamin D2 1,250 mcg (50,000 unit) capsule Take 1 capsule every week by oral route. Active ferrous sulfate 325 mg (65 mg iron) tablet ferrous sulfate 325 mg (65 mg iron) tablet TAKE 1 TABLET BY MOUTH TWICE A DAY Active lansoprazole (PREVACID) 30 mg Capsule, Delayed Release(E.C.) 2 Active levothyroxine 75 mcg tablet levothyroxine 75 mcg tablet Active montelukast (SINGULAIR) 10 mg tablet montelukast 10 mg tablet Active pravastatin (PRAVACHOL) 10 mg tablet pravastatin 10 mg tablet 1 Active OneTouch Verio Reflect Meter USE TO TEST BLOOD SUGARS DAILY 2 Active furosemide (LASIX) 40 mg tablet Take 40 mg by mouth daily. 2 Active Creon 6,000-19,000 -30,000 unit capsule TAKE 2 CAPSULES BY MOUTH 3 TIMES A DAY FOR 1 MONTH (DO NOT EXCEED 10,000 UNIT/KG LIPASE PER 24 HRS) 2 Active Spiriva Respimat 1.25 mcg/actuation Mist 2 Active alclometasone (ACLOVATE) 0.05 % Cream alclometasone 0.05 % topical cream Active OneTouch Verio test strips Strip USE TO TEST BLOOD SUGAR ONE TIME A DAY E11.9 2 Active OneTouch Delica Plus Lancet 33 gauge USE TO TEST BLOOD SUGAR ONE TIME A DAY DX E11.9 2 Active midodrine (PROAMATINE) 5 mg tablet 2 Active Active Problems Problem Noted Date Diagnosed Date Chronic anemia 11/04/2021 Other ascites 11/04/2021 Immunizations Immunization Administration Dates Next Due (SPIKEVAX) (12 YRS UP PRIMAR Y SERIES) COVID-19 VACCINE - MRNA-1273(PF) 100 MCG/0.5 ML IM SUSP 07/25/2021,11/04/2020,10/14/2020 Family History Relation Name Status Comments Brother Daughter 1 Alive Daughter 2 Father Mother Social History Tobacco Use Types Packs/Day Years Used Date Smoking Tobacco: Never Smokeless Tobacco: Never Tobacco Cessation:Counseling Given: Not Answered Alcohol Use Standard Drinks/Week Comments Not Currently 0 (1 standard drink = 0.6 oz pur e alcohol) Comments Unknown Sex and Gender Information Value Date Recorded Sex Assigned at Not on file Legal Sex Female 3:51 PM PROBATION SUPERVISOR Gender Identity Not on file Sexual Orientation Not on file Last Filed Vital Signs Vital Sign Reading Time Taken Comments Blood Pressure 101/66 10/19/2022 1:09 PM PROBATION SUPERVISOR Pulse 62 10/19/2022 1:09 PM PROBATION SUPERVISOR Temperature 36.8 C (98.2 F) 10/19/2022 1:09 PM PROBATION SUPERVISOR Respiratory Rate 20 10/19/2022 1:09 PM PROBATION SUPERVISOR Oxygen Saturation 100% 10/19/2022 1:09 PM PROBATION SUPERVISOR Inhaled Oxygen Concentration - - Weight 63.9 kg (140 lb 14.4 oz) 10/19/2022 1:09 PM PROBATION SUPERVISOR Height 162.6 cm (5' 4) 04/18/2022 1:10 PM CDT Body Mass Index 24.19 04/18/2022 1:10 PM CDT Plan of Treatment Health Maintenance Due Date Last Done Comments DTAP/TDAP/TD VACCINES (1 - Tdap) 1967 ZOSTER VACCINE (1 of 2) 1998 OSTEOPOROSIS SCREENING 2013 RSV VACCINE (60+ or ) (1 - 1-dose 75+ series) 2023 COVID-19 Vaccine (5 - 2023-2 5 season) 2024 05/12/2022, 07/25/2021, 11/04/2020, Additional history exists INFLUENZA VACCINE (#1) 2025 2, 06/11/2021, 06/12/2020, Additional history exists PNEUMOCOCCAL VACCINE 50+ YEARS Completed 06/20/2017 , 06/05/2015 Insurance AETNA PPO MCR Care Teams Branch Customer Service Representative Relationship Specialty Start Date End Date Josh Rouse MD [facility] [address] [place] [address] PCP - General Internal Medicine 11/04/21
[2025-03-13 06:25] VITALS: BP 113/69; PULSE 67; RESP 18; TEMP 36.2; O2SAT 98; BMI 31.9
[2025-03-13] MEDS: LACTATED RINGERS 1,000 ML 150 ML IV CONT (06:34)
--- NOTE | 2025-03-13 07:26 | P.PNAN_ITS ---
Anes - Initial Pre Proc Eval Procedure: Operation Date: 03/13/25 07:30 Proposed Procedures p Screening Colonoscopy - Gerber Jacinto MD Date/Time: 03/13/25 07:26 Surgeon: Gerber Jacinto MD Pre Op Diagnosis: Screening Patient Data Age: 74 Gender: F Height: 1.63 m Weight: 84.5 kg Last Vital Signs Temp 97.2 F L 03/13/25 06:25 Pulse 67 03/13/25 06:25 Resp 18 03/13/25 06:25 BP 113/69 03/13/25 06:25 Pulse Ox 98 03/13/25 06:25 O2 Del Method Room Air 03/13/25 06:25 Allergies Allergy/AdvReac Type Severity Reaction Status Date / Time No Known Allergies Allergy Verified 03/13/25 06:22 Home Medications ?Medication ?Instructions ?Recorded ?Confirmed ?Type ferrous sulfate 325 mg (65 mg 325 mg PO BID 08/23/19 03/13/25 History iron) tablet lansoprazole 30 mg capsule,delayed 30 mg PO DAILY 08/23/19 03/13/25 History release levothyroxine 75 mcg tablet 75 mcg PO DAILY 08/23/19 03/13/25 History pravastatin 10 mg tablet 10 mg PO DAILY 08/23/19 03/13/25 History cholecalciferol (vitamin D3) 25 1,000 unit PO DAILY 09/25/19 03/13/25 History mcg (1,000 unit) capsule cyanocobalamin (vitamin B-12) 500 500 mcg PO DAILY 09/25/19 03/13/25 History mcg tablet (B-12 DOTS) multivitamin (Multiple Vitamins 1 tablet PO DAILY 09/25/19 03/13/25 History tablet) Lactobacillus 1 cap PO DAILY 12/06/21 03/13/25 History acidophilus-Bifidobac.animalis 2.5 billion cell capsule (Daily Probiotic) furosemide 40 mg tablet 40 mg PO DAILY 12/06/21 03/13/25 History empagliflozin 10 mg tablet 10 mg PO DAILY 04/24/24 03/13/25 History (Jardiance) gabapentin 100 mg capsule 100 mg PO TID 04/24/24 03/13/25 History spironolactone 25 mg tablet 25 mg PO DAILY 04/24/24 03/13/25 History albuterol sulfate 90 mcg/actuation 2 puff inhalation Q4-6H PRN 08/12/24 02/27/25 Rx aerosol inhaler shortness of breath or wheezing #8.5 grams montelukast 10 mg tablet See Rx Instructions .Route 09/03/24 03/13/25 Rx .COMPLEX #90 tabs budesonide-formoterol HFA 160 2 puff inhalation Q12H #10.2 grams 09/05/24 02/27/25 Rx mcg-4.5 mcg/actuation aerosol inhaler budesonide-formoterol HFA 160 2 puff inhalation Q12H #30.6 grams 09/09/24 03/13/25 Rx mcg-4.5 mcg/actuation aerosol inhaler gabapentin 100 mg capsule 100 mg PO DAILY 02/05/25 02/27/25 History Vitamin C 282 mg PO DAILY 02/27/25 03/13/25 History aspirin 81 mg tablet,delayed 81 mg PO DAILY 02/27/25 03/13/25 History release (Adult Aspirin Regimen) Patient hx anesthesia problems: none Family hx anesthesia problems: none Results Review: All pre-operative results and documents have been reviewed as part of the pre- operative evaluation. [facility] Past Medical History Medical History Barretts esophagus History of colon polyps Chronic diarrhea Abdominal pain Hoarseness of voice Adenomatous colon polyp Malabsorption Acute on chronic blood loss anemia Hypertension Chronic anticoagulation GI bleed Gastroesophageal reflux disease Hyperlipidemia Chronic obstructive pulmonary disease Atrial fibrillation Asthma Diabetes mellitus Marques's esophagus with esophagitis Diastolic congestive heart failure Anemia Hypothyroid Arthritis Pulmonary HTN Seasonal allergies Surgical History Surgical History History of tonsillectomy History of cataract extraction History of breast biopsy History of resection of small bowel History of hysterectomy Postsurgical intestinal bypass or anastomosis status History of esophagogastroduodenoscopy (EGD) History of colonoscopy History of cholecystectomy History of appendectomy History of cardiac cath Family History Family History Mother Family history of muscular dystrophy, Onset Age: 45 Family history of cardiovascular disease, Onset Age: 45 Family history of lung disease, Onset Age: 45 Diabetes mellitus Heart disease Hypertension Thyroid disorder Father Acute myocardial infarction, Onset Age: 47 Heart disease Hypertension Sibling Family history of renal failure Heart disease Hypertension Grandparent Asthma Heart disease Hypertension Cerebrovascular accident Other Family history of autism Social History Social History Social History: Surrogate decision maker: Cristi King (spouse) or Lilly Perea (daughter). Code status: Full code. Smoking status: Never smoker Second hand tobacco smoke exposure: Yes Alcohol intake: never Substance use: never Substance use type: does not use Lack of Transportation: No Lack of Food: Never True Current Housing: I Have Housing Concerned About Future Housing: No Difficulty Paying Gas/Electric Bills: No Difficulty Paying for Meds: No Currently Unemployed: No Education: Associate Degree Difficulty w/ Childcare or Family Care: No Living arrangements: with family Additional living arrangements comments: The patient lives in [place] with her . Occupation/Education: retired Gender identity (if verbalized by the patient): Female Spiritual care concerns: No Anes - Eval Final PreProcedure Day of Procedure 03/13/25 07:26 Patient weight: obese Lungs: normal air movement Airway: Mallampati scale class II and special considerations (Upper caps. ) Neurological: alert and oriented Last oral intake: >/= 8 hours ASA classification: III Emergent: no Anesthetic plan: proceed Anesthesia type and monitoring: general GIVS and standard monitoring Results Review: All pre-operative results and documents have been reviewed as part of the pre-operative evaluation. HTN, hyperlipidemia, hx of chr a fib, s/p ablation x 2 w good success. DNR signed w goal 3 selected. Informed Consent: The patient's anesthetic plan and its attendant risks and benefits were discussed with the patient/family/POA. Questions were solicited and answers provided to the satisfaction of the patient/family/POA.
--- NOTE | 2025-03-13 07:30 | PM.HPGS ---
History of Present Illness History of Present Illness Consent: Risks, benefits, and alternatives have been discussed and questions answered. Patient agrees to proceed with procedure. Chief complaint: Screening Narrative: Lady King is a 74 year old female with colon polyp in 2021 Review of Systems Review of Systems: All systems reviewed & are unremarkable except as noted in HPI and below PMFSH Past Medical History Medical History Barretts esophagus History of colon polyps Chronic diarrhea Abdominal pain Hoarseness of voice Adenomatous colon polyp Malabsorption Acute on chronic blood loss anemia Hypertension Chronic anticoagulation GI bleed Gastroesophageal reflux disease Hyperlipidemia Chronic obstructive pulmonary disease Atrial fibrillation Asthma Diabetes mellitus Marques's esophagus with esophagitis Diastolic congestive heart failure Anemia Hypothyroid Arthritis Pulmonary HTN Seasonal allergies Surgical History Surgical History History of tonsillectomy History of cataract extraction History of breast biopsy History of resection of small bowel History of hysterectomy Postsurgical intestinal bypass or anastomosis status History of esophagogastroduodenoscopy (EGD) History of colonoscopy History of cholecystectomy History of appendectomy History of cardiac cath Family History Family History Mother Family history of muscular dystrophy, Onset Age: 45 Family history of cardiovascular disease, Onset Age: 45 Family history of lung disease, Onset Age: 45 Diabetes mellitus Heart disease Hypertension Thyroid disorder Father Acute myocardial infarction, Onset Age: 47 Heart disease Hypertension Sibling Family history of renal failure Heart disease Hypertension Grandparent Asthma Heart disease Hypertension Cerebrovascular accident Other Family history of autism Social History Social History Social History: Surrogate decision maker: Cristi King (spouse) or Lilly Villanuevaantonio (daughter). Code status: Full code. Smoking status: Never smoker Second hand tobacco smoke exposure: Yes Alcohol intake: never Substance use: never Substance use type: does not use Lack of Transportation: No Lack of Food: Never True Current Housing: I Have Housing Concerned About Future Housing: No Difficulty Paying Gas/Electric Bills: No Difficulty Paying for Meds: No Currently Unemployed: No Education: Associate Degree Difficulty w/ Childcare or Family Care: No Living arrangements: with family Additional living arrangements comments: The patient lives in [place] with her . Occupation/Education: retired Gender identity (if verbalized by the patient): Female Spiritual care concerns: No Meds Home Medications and Allergies Home Medications ?Medication ?Instructions ?Recorded ?Confirmed ?Type ferrous sulfate 325 mg (65 mg 325 mg PO BID 08/23/19 03/13/25 History iron) tablet lansoprazole 30 mg capsule,delayed 30 mg PO DAILY 08/23/19 03/13/25 History release levothyroxine 75 mcg tablet 75 mcg PO DAILY 08/23/19 03/13/25 History pravastatin 10 mg tablet 10 mg PO DAILY 08/23/19 03/13/25 History cholecalciferol (vitamin D3) 25 1,000 unit PO DAILY 09/25/19 03/13/25 History mcg (1,000 unit) capsule cyanocobalamin (vitamin B-12) 500 500 mcg PO DAILY 09/25/19 03/13/25 History mcg tablet (B-12 DOTS) multivitamin (Multiple Vitamins 1 tablet PO DAILY 09/25/19 03/13/25 History tablet) Lactobacillus 1 cap PO DAILY 12/06/21 03/13/25 History acidophilus-Bifidobac.animalis 2.5 billion cell capsule (Daily Probiotic) furosemide 40 mg tablet 40 mg PO DAILY 12/06/21 03/13/25 History empagliflozin 10 mg tablet 10 mg PO DAILY 04/24/24 03/13/25 History (Jardiance) gabapentin 100 mg capsule 100 mg PO TID 04/24/24 03/13/25 History spironolactone 25 mg tablet 25 mg PO DAILY 04/24/24 03/13/25 History albuterol sulfate 90 mcg/actuation 2 puff inhalation Q4-6H PRN 08/12/24 02/27/25 Rx aerosol inhaler shortness of breath or wheezing #8.5 grams montelukast 10 mg tablet See Rx Instructions .Route 09/03/24 03/13/25 Rx .COMPLEX #90 tabs budesonide-formoterol HFA 160 2 puff inhalation Q12H #10.2 grams 09/05/24 02/27/25 Rx mcg-4.5 mcg/actuation aerosol inhaler budesonide-formoterol HFA 160 2 puff inhalation Q12H #30.6 grams 09/09/24 03/13/25 Rx mcg-4.5 mcg/actuation aerosol inhaler gabapentin 100 mg capsule 100 mg PO DAILY 02/05/25 02/27/25 History Vitamin C 282 mg PO DAILY 02/27/25 03/13/25 History aspirin 81 mg tablet,delayed 81 mg PO DAILY 02/27/25 03/13/25 History release (Adult Aspirin Regimen) Allergies Allergy/AdvReac Type Severity Reaction Status Date / Time No Known Allergies Allergy Verified 03/13/25 06:22 Vital Signs Vital Signs - 24 hr 03/13/25 06:25 Temperature 97.2 F L Pulse Rate 67 Respiratory Rate 18 Blood Pressure 113/69 Pulse Oximetry 98 Oxygen Delivery Room Air Exam Const: General: comfortable and no acute distress HENMT: Face/Nose/Sinus: Normal nares present Eyes: General: appearance normal, both eyes and all related structures Neck: Neck: no JVD Resp: Auscultation: clear to auscultation bilaterally Cardio: Rate: regular rate Rhythm: regular rhythm GI: Inspection: non-distended GI Palp: Yes Soft to palpation Skin: General skin exam: normal color Neuro: Speech: normal speech Extrem: General: normal to inspection Psych: Mental Status: mental status grossly normal Assessment and Plan Assessment and plan (1) Adenomatous colon polyp: Code(s): D12.6 - Benign neoplasm of colon, unspecified Status: Acute Assessment and Plan: colonoscopy
--- NOTE | 2025-03-13 07:43 | S_PTH ---
PATIENT: Lady King LOC: [facility] Stoll#:[id number] AGE/SX: 74/F ROOM: RE03/13/[address]: Gerber Jacinto MD : 1950 BED: DIS: 03/13/2025 SPEC #: [id number] RECD: 03/13/25 09:52 STATUS: MERISSA REArjun #: [id number] TRACY: 03/13/25 07:[address]: Gerber Jacinto DEPT: [facility] Surgical RECD BY: Lisa Short ENTERED: 03/13/25 09:53 SP TYPE: Surgical OTHR DR: Josh Rouse, Tissues: A - Colon Polypectomy Procedures: Hematoxylin and Eosin Stain Gross and Microscopic Level 4
[2025-03-13 07:47] VITALS: BP 105/46; PULSE 60; RESP 24; O2SAT 99
[2025-03-13 07:57] VITALS: BP 125/56; PULSE 62; RESP 24; O2SAT 100
[2025-03-13 08:07] VITALS: BP 120/67; PULSE 62; RESP 18; O2SAT 100
== END 2025-03-13 08:18 | disposition home or self-care (01) ==
PROVIDERS: PCP Internal Medicine; Referring Provider Internal Medicine Gastroenterology; Visit Provider Internal Medicine Gastroenterology
PROC: 0DJD8ZZ Inspection of Lower Intestinal Tract, Via Natural or Artificial Opening Endoscopic (ICD-10-PCS; CPT 45378; principal; 2025-03-13 07:30)
DX: Z12.11 Encounter for screening for malignant neoplasm of colon (principal); D12.4 Benign neoplasm of descending colon; K57.30 Diverticulosis of large intestine without perforation or abscess without bleeding; K64.8 Other hemorrhoids; E66.9 Obesity, unspecified; Z68.32 Body mass index [BMI] 32.0-32.9, adult
CPT/HCPCS: 45385; 88305; J2003; J2704; J7120

== ENCOUNTER 2025-04-14 08:09 | Outpatient (CLI) | payer MEDICARE, SELFPAY ==
--- NOTE | ~2025-04-14 | XR_ITS ---
EXAMINATION: XR lumbar spine min 4V DATE: 04/14/2025 08:38 INDICATION: Lumbar radiculopathy TECHNIQUE: 5 images of the lumbar spine were obtained COMPARISON: MRI lumbar spine 02/27/2025 FINDINGS: Bones appear osteopenic. Levoconvex curvature of the lumbar spine. Cholecystectomy clips ar e present. Prior surgical changes noted in the abdomen and pelvis. There is stool and air in bowel pr ojecting over the lumbar spine and pelvis which limits evaluation. Lumbar vertebral body heights and alignment are within normal limits. No compression fracture in the lumbar spine. No abnormal subluxat ion with flexion or extension. Severe intervertebral disc space narrowing at the L5-S1 level. Moderat e to severe intervertebral disc space narrowing at the L1-L2 level. Moderate intervertebral disc spac e narrowing at the L2-L3, L3-L4 and L4-L5 levels. Degenerative change in the lumbar facet joints. IMPRESSION: 1. No compression fracture in the lumbar spine. Lumbar vertebral body height and alignment is within normal limits. 2. No abnormal subluxation with flexion or extension. 3. Multilevel degenerative change in the lumbar spine. If symptoms persist or worsen, consider a short-term follow-up study or additional imaging for furthe r assessment Reviewed, dictated and finalized at location A. IMPRESSION: 1. No compression fracture in the lumbar spine. Lumbar vertebral body height an d alignment is within normal limits. 2. No abnormal subluxation with flexion or extension. 3. Multilevel degenerative change in the lumbar spine. If symptoms persist or worsen, consider a short-term follow-up study or additio nal imaging for further assessment
== END 2025-04-14 08:10 | disposition home or self-care (01) ==
PROVIDERS: PCP Internal Medicine; Visit Provider Neurological Surgery
DX: M47.26 Other spondylosis with radiculopathy, lumbar region (principal); M51.369 Other intervertebral disc degeneration, lumbar region without mention of lumbar back pain or lower extremity pain
CPT/HCPCS: 72110

== ENCOUNTER 2025-04-14 09:00 | Outpatient (CLI) | payer MEDICARE, SELFPAY ==
--- NOTE | ~2025-04-14 | DEXA_ITS ---
Bone Density Report Name: EDWIN OLIVERA Age: 74 Sex: Female Ethnicity: White Date of : 1950 Indication: osteopenia; height loss; asthma or emphysema; hysterectomy; secondary osteoporosis; Referring Provider: KORIN, HIRA Lindsay Study: Bone densitometry was performed. Exam Date: April 14, 2025 Accession number: [id number] Bone Density: Region BMD T-score Z-score Classification AP Spine(L1-L4) 0.919 -1.2 1.3 Osteopenia Femoral Neck (Left) 0.556 -2.6 -0.5 Osteoporosis Total Hip (Left) 0.718 -1.8 0.0 Osteopenia Femoral Neck (Right) 0.550 -2.7 -0.5 Osteoporosis Total Hip (Right) 0.655 -2.4 -0.5 Osteopenia Total Hip Mean 0.687 -2.1 -0.3 Osteopenia World Health Organization criteria for BMD impression classify patients as: Normal (T-score at or above -1.0), Osteopenia (T-score between -1.0 and -2.5), or Osteoporosis (T-score at or below -2.5). 10-year Fracture Risk: FRAX not reported because: Some T-score for Spine Total or Hip Total or Femoral Neck at or below -2.5 Previous Exams: Region Exam Age BMD T-score BMD Change BMD Change Date g/cm2 vs Baseline vs Previous AP Spine (L1-L4) 04/14/2025 74 0.919 -1.2 -0.019 (-2.1%) 0.002 (0.3%) 02/08/2022 71 0.916 -1.2 -0.022 (-2.3%) -0.022 (-2.3%) 01/10/2020 69 0.938 -1.0 Total Hip(Left) 04/14/2025 74 0.718 -1.8 -0.134 (-15.7% 0.007 (1.0%) 02/08/2022 71 0.711 -1.9 -0.141 (-16.6% -0.141 (-16.6% 01/10/2020 69 0.852 -0.7 Total Hip(Right) 04/14/2025 74 0.655 -2.4 -0.117 (-15.2% -0.005 (-0.7%) 02/08/2022 71 0.660 -2.3 -0.113 (-14.6% -0.113 (-14.6% 01/10/2020 69 0.772 -1.4 *Denotes significance at 95% confidence level, LSC for AP Spine = 0.022 g/cm2, LSC for Total Hip = 0.027 g/cm2 Clinical Information Provided by Patient: Has secondary osteoporosis Has used the following medications: Vitamin D Has the following medical conditions: Asthma or Emphysema, Hysterectomy Patient maximum height was 65.0 Menopause Age: 30 No regular weight bearing exercise Drinks caffeinated beverages Onset of menses at age 11 Number of children 2 Impression: The patient has osteoporosis, based on the Right Femoral Neck T-score. No significant bone loss was observed. Discussion: INCREASED RISK OF FRACTURE. BONE DENSITY IS UNDESIRABLY LOW AT ONE OR MORE SKELETAL SITES, CONSISTENT WITH POSTMENOPAUSAL OSTEOPOROSIS. This patient's lowest T-score meets the World Health Organization's (WHO) criteria for osteoporosis at one or more sites (T-score -2.5 or below). In untreated patients, the risk of osteoporotic fracture increases approximately two-fold for each 1.0 SD decrease in T-score. Low bone density is not the only risk factor for fracture; also consider factors such as patient's age, frailty or poor health, risk of falling, risk of injury, previous osteoporotic fracture, family history of osteoporosis, cigarette smoking, low body weight, etc. Not everyone with low bone mineral density has osteoporosis; osteomalacia and other metabolic bone disorders should also be considered. Patients who have osteoporosis should be evaluated for specific diseases and conditions (secondary causes) that may cause or contribute to bone loss. The [place] Association [employer] Clinical Endocrinologists (AACE) and National Osteoporosis Foundation (NOF) recommend pharmacologic intervention for all postmenopausal women whose T-score is in this range. The patient should follow a healthful lifestyle (good nutrition with adequate calcium and vitamin D, and appropriate weight-bearing exercise). Follow-Up: Consider a repeat BMD and Vertebral Fracture Assessment (VFA) exam in 2 years or sooner if medically necessary, to reassess this patient's status. Reported by: TILA on 04/14/2025 10:21:00 AM. Reviewed, dictated and finalized at location A.
--- OUTSIDE RECORDS SUMMARY | 2025-04-14 09:14 | XMS_ITS | Encounter Summary ---
Author Organization [facility] Address [address] [place] [address] Care Team Providers Care Applications Chemist Name Role Phone Josh Rouse MD Primary Care Provider Josh Rouse MD Primary Care Provider Encounter Details Date Type Department Care Team (Late st Contact Info) Description 09/16/2016 Orders Only [facility] ProviderRl MD [address] [place] [address] Social History Tobacco Use Types Packs/Day Years Used Date Smoking Tobacco: Never Alcohol Use Standard Drinks/Week Comments No 0 (1 standard drink = 0.6 oz pur e alcohol) Comments Unknown Sex and Gender Information Value Date Recorded Sex Assigned at Not on file Legal Sex Female 12:41 AM 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
--- OUTSIDE RECORDS SUMMARY | 2025-04-14 09:14 | XMS_ITS | Encounter Summary ---
Author Organization [facility] Address [address] [place] [address] Care Team Providers Care Application Security Architect Name Role Phone Josh Rouse MD Primary Care Provider Encounter Details Date Type Department Care Team (Late st Contact Info) Description 03/16/2025 Results Follow-Up [facility] Cardiology [address] [place] [address] [place] [address] [place] [address] [place] [address] [address] [facility] [address] 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
--- OUTSIDE RECORDS SUMMARY | 2025-04-14 09:14 | XMS_ITS | Clinical Summary ---
Author Organization [facility] Address [address] [place] [address] Care Team Providers Care Skip Hoist Engineer Name Role Phone Josh Rouse MD Primary Care Provider [phone] Allergies No known active allergies Medications albuterol [...] on file Legal Sex Female 3:51 PM ATHLETICS DIRECTOR Gender Identity Not on file Sexual Orientation Not on file Last Filed Vital Signs Vital Sign Reading Time Taken Comments Blood Pressure 101/66 10/19/2022 1:09 PM ATHLETICS DIRECTOR Pulse 62 10/19/2022 1:09 PM ATHLETICS DIRECTOR Temperature 36.8 C (98.2 F) 10/19/2022 1:09 PM ATHLETICS DIRECTOR Respiratory Rate 20 10/19/2022 1:09 PM ATHLETICS DIRECTOR Oxygen Saturation 100% 10/19/2022 1:09 PM ATHLETICS DIRECTOR Inhaled Oxygen Concentration - - Weight 63.9 kg (140 lb 14.4 oz) 10/19/2022 1:09 PM ATHLETICS DIRECTOR Height 162.6 cm (5' 4) 04/18/2022 1:10 [...] 06/05/2015 Insurance [employer] PPO MCR Care Teams Skip Hoist Engineer Relationship Specialty Start Date End Date Josh Rouse MD [facility] [address] [place] [address] PCP - General Internal Medicine 11/04/21
--- OUTSIDE RECORDS SUMMARY | 2025-04-14 09:14 | XMS_ITS | Continuity of Care Document ---
Author Organization [facility] Address [address] [place] [address] Phone Care Team Providers Care Inspector And Unloader Name Role Phone Mckoy OD, Marcelo Unavailable Unavailable Procedures Procedure Date Office/outpatient Visit, [facility] Advance Directives Directive Yes / No Effective Date File Name No Information Encounters Encounter Description Practice Location Reason(s) For Visit Diagnoses Date Provider Providers Copied on Encounter Office/outpat ient Visit, [facility], [address], [place], [place], [address], [place] tel:[phone] [facility] No Information 3-200 7 Mckoy OD Marcelo. [address] , [address], [place], [address], [place]. tel:[phone] Referring Provider: Adonis Llanes OD, [address] [place], [address]. tel:[phone] Family History Family Member Type Diagnosis Age At Onset No Information Payers Payer name Insurance type Covered republican ID Authoriza tion(s) [facility] Custom Care CI [id number] [facility] Out Of State BL [id number] Social History Type Description Quantity Date Captured [...]
--- OUTSIDE RECORDS SUMMARY | 2025-04-14 09:14 | XMS_ITS | Clinical Summary ---
Author Organization [facility] [address] Address [address] [place] [address] Care Team Providers Care Catalogue Compiler Name Role Phone Josh Rouse MD Primary Care Provider Allergies No known active allergies Medications cyanocobalamin, vitamin B-12, (VITAMIN B-12) 1,000 mcg tablet extended release take as directed 0 1 Active multivitamin tablet tablet Take one by mouth one time per day 0 0 8 Active ergocalciferol (VITAMIN D) 50,000 unit capsule Take 1 capsule (50,000 Units total) by mouth once a week Active albuterol HFA (PROVENTIL HFA,VENTOLIN HFA,PROAIR HFA) 90 mcg/actuation inhaler Inhale 2 puffs every 6 (six) hours as needed for wheezing Active montelukast (SINGULAIR) 10 mg tablet Take 1 tablet (10 mg total) by mouth nightly Active budesonide-form oteroL (SYMBICORT) 160-4.5 mcg/actuation inhaler Inhale 2 puffs 2 (two) times a day Rinse mouth with water after use. Do not swallow. Active pravastatin (PRAVACHOL) 10 mg tablet Take 1 tablet (10 mg total) by mouth daily 90 tablet 3 1 Active furosemide (LASIX) 40 mg tablet furosemide 40 mg tablet TAKE 1 TABLET BY MOUTH EVERY DAY 2 Active gabapentin (NEURONTIN) 100 mg capsule Take 1 capsule (100 mg total) by mouth 3 (three) times a day 3 Active lansoprazole (PREVACID) 30 mg capsule Take 1 capsule (30 mg total) by mouth daily Active levothyroxine (SYNTHROID) 75 mcg tablet Take 1 tablet (75 mcg total) by mouth resistor winder before breakfast 4 Active ferrous sulfate 325 mg (65 mg of elemental iron) tablet Take 1 tablet (325 mg total) by mouth 2 (two) times a day 4 Active famotidine (PEPCID) 40 mg tablet Take 1 tablet (40 mg total) by mouth nightly Active aspirin 81 mg enteric coated tabletIndicatio ns:Presence of Amulet left atrial appendage closure device Take 1 tablet (81 mg total) by mouth daily 30 tablet 11 5 02/20/20 Active spironolactone (ALDACTONE) 25 mg tablet Take 1 tablet (25 mg total) by mouth daily 90 tablet 6 5 02/20/20 Active empagliflozin (JARDIANCE) 10 mg tablet Take 1 tablet (10 mg total) by mouth daily 90 tablet 6 5 02/15/20 Active Active Problems Problem Noted Date Diagnosed [...] Encounters Date Type Department Care Team Description 03/16/2025 Results Follow-Up [facility] Cardiology [address] [place] [address] Kyler Macdonald MD US Venous Reflux Bilateral 03/04/2025 Telephone [facility] Vascular and Vein Surgery at [address] [place] [address] Elisabet Esquivel RDMS 03/03/2025 Telephone [facility] Cardiology [address] [place] [address] Kyler Macdonald MD 02/25/2025 8:00 AM CDT Ancillary Procedure [facility] Vascular and Vein Surgery at [address] [place] [address] Varicose veins of leg with pain, bilateral 02/19/2025 9:45 AM CDT Office Visit [facility] Cardiology [address] [place] [address] Kyler Macdonald MD Chronic heart failure with preserved ejection fraction (HCC) (Primary Dx); Persistent atrial fibrillation (HCC); History of GI bleed; Presence of Amulet left atrial appendage closure device; Stage 3a chronic kidney disease (HCC); Varicose veins of leg with pain, bilateral from Last 3 Months Surgical History Surgery Date Site/Laterality Comments CHOLECYSTECTOMY Cholecystectomy APPENDECTOMY 1971 CATARACT EXTRACTION 2011 COLON SURGERY 1972 HYSTERECTOMY 1981 BLADDER REPAIR bladder prolapse after childbirth RECTAL PROLAPSE REPAIR Medical History Medical History Date Comments Hx Other Medical Arrhythmias A. Fib h/o failed CV Hypothyroidism Hypothyroidism Adiposity Obesity GERD (gastroesophageal reflux disease) 1999 Anemia 2015 Arthritis 2000 Asthma 01/26/2015 Osteoporosis 2020 Clotting disorder Cataract 2009 Diabetes mellitus (HCC) 12/26/2020 Heart disease 1999 Mixed conductive and sensori neural hearing loss 1994 Hyperlipidemia Marques esophagus History of transfusion 2020 Bladder prolapse, female, acquired Rectal prolapse Spinal stenosis Hypertension Family History Medical History Relation Name Comments Developmental delay Daughter Kaylyn King Learning disabilities Daughter Kaylyn King Coronary artery disease Father Itz Yee t Coronary Artery Disease; Cause of : Coronary Artery Disease Early Father Itz Radha Arthritis Maternal Grandmother Grandmother Hearing loss Maternal [...] on file Legal Sex Female 12:41 AM HAIR [employer] W[employer]ER Gender Identity Female 06/02/2020 10:02 AM CDT [...] 06/05/2015, 06/04/2015 Medical Devices Implanted Type Area Client Success Specialist Device Identifier Shelf Expiration Date Model / Serial / Lot [employer] V[employer] System Closure Repair Femoral Artery Suture Mediated Perclose Prostyle 20189-70 - [id number] Implanted:Qty: 1 on 02/01/2024 by Kyler Macdonald MD at [facility] 10/25/2025 [id number] / / [id number] [employer] System Closure Repair Femoral Artery Suture Mediated Perclose Prostyle 42777-38 - [id number] Implanted:Qty: 1 on 02/01/2024 by Kyler Macdonald MD at [facility] 10/25/2025 [id number] / / [id number] [place] [facility] Percutaneous Transcatheter Amplatzer Amulet 22mm [id number] - [id number] Implanted:Qty: 1 on 02/01/2024 by Kyler Macdonald MD at [facility] 12/26/2027 [id number] / / [id number] [facility] [employer]ascade Mvp 6-12fr Venous Closure [id number] - [id number] Implanted:Qty: 1 on 02/01/2024 by Kyler Macdonald MD at [facility] 07/31/2025 [id number] / / [id number] Procedures Procedure Name Priority Date/Time Associated [...] AM CDT Vascular & Vein Surgery [address] [address] Lower Extremity Venous Reflux Duplex Report Patient Name: LADY KING C : 1950 (74y 8m) Study Date: 02/25/2025 7:53:45 AM Gender: F Graduate Assistant Athletic Trainer: Location: [facility] Ref Provider: KYLER MACDONALD Quality: [...] saphenous vein below the knee (or calf). House Decorator vein noted at distal calf measuring 2.8 [...] - 02/25/2025 Vascular & Vein Surgery [address] [place] [address] Lower Extremity Venous Reflux Duplex Report Patient Name: LADY KING C : 1950 (74y 8m) Study Date: 02/25/2025 7:53:45 AM Gender: F Graduate Assistant Athletic Trainer: Location: [facility] Provider: KYLER MACDONALD Quality: Adequate Order Provider: [...] great saphenous vein below the knee(or calf). House Decorator vein noted at distal calf measuring 2.8 [...] 02/25/2025 9:29:53 AM CDT Kyler Macdonald MD [facility] PROCEDURES Final Result from Last 3 Months Insurance [employer] MEDICARE [facility] MEDICARE [facility] MEDICARE Care Teams Catalogue Compiler Relationship Specialty Start Date End Date Josh Rouse MD PCP - General 11/25/16
== END 2025-04-14 09:01 | disposition home or self-care (01) ==
PROVIDERS: PCP Internal Medicine; Visit Provider Internal Medicine
DX: M85.89 Other specified disorders of bone density and structure, multiple sites (principal); M81.0 Age-related osteoporosis without current pathological fracture
CPT/HCPCS: 77080

== ENCOUNTER 2025-04-14 15:00 | Outpatient (CLI) | payer MEDICARE, SELFPAY ==
--- NOTE | ~2025-04-14 | XR_ITS ---
XR hip LT min 2V 04/14/2025 15:14 Indication: Left leg pain Procedure: 2 views left hip Comparison: No prior studies for comparison. Findings: Mild osteoarthritis of the left hip. No fracture or traumatic malalignment. No soft tissue abnormality. Stable benign-appearing sclerotic lesion proximal aspect of the left femur. There is low er lumbar spondylosis partially visualized. Impression: 1: Mild osteoarthritis of the left hip. Reviewed, dictated and finalized at location A. Impression: 1: Mild osteoarthritis of the left hip.
== END 2025-04-14 15:01 | disposition home or self-care (01) ==
LOC: MICIMG 15:02
PROVIDERS: PCP Internal Medicine; Visit Provider Internal Medicine
DX: M16.12 Unilateral primary osteoarthritis, left hip (principal)
CPT/HCPCS: 73502